=== PATIENT | female | born 1955 | race Caucasian/White ===

== ENCOUNTER 2016-08-04 11:54 | Day surgery (SDC) | payer OTHER ==
[2016-08-01 18:52] VITALS: BMI 26.5
--- NOTE | 2016-08-03 21:09 | P.GSHP ---
History of Present Illness H&P Date: 08/04/16 CHIEF COMPLAINT: Gallstones. HISTORY OF PRESENT ILLNESS: Katarina Burris is a pleasant 61 year-old female who denies any family history of gallbladder disease. She has had nausea increase vomiting, epigastric including right upper quadrant abdominal pain for several months. She had an ultrasound of the abdomen that was done within the last 4 weeks consistent with gallstones. Incidentally, she also has a lipoma of the left lower abdomen that will cause intermittent discomfort. Her main concerns include epigastric abdominal pain whereby she has to actually massage the area to get some relief. She denies any cardiac problems as well. PAST MEDICAL HISTORY: Please see list PAST SURGICAL HISTORY: Please see list MEDICATIONS: Please see list ALLERGIES: Denies. SOCIAL HISTORY: No illicit drug use or recent tobacco use FAMILY HISTORY: Pertinent for gallbladder disease REVIEW OF ORGAN SYSTEMS: GI: Denies any blood in her stools. She is up to date with her colonoscopy. She reports fatty food intolerance. She also has gastroesophageal reflux disease. CONSTITUTIONAL: No fevers or chills. HEENT: Denies any trouble with vision, hearing or nosebleeds. No difficulty swallowing. LYMPHATIC: The patient denies any lumps and bumps around the neck. ENDOCRINE: Denies any thyroid disorders. Denies any blood sugar glucose intolerance. RESPIRATORY: Denies pneumonia. Denies any troubles with breathing or dyspnea on exertion. CARDIOVASCULAR: Denies any chest pain, palpitations, or recent heart attacks. GENITOURINARY: Denies any blood in urine or increased urinary frequency. MUSCULOSKELETAL: Denies any back pain, stiffness or joint arthritis. NEUROLOGIC: Denies any numbness or tingling along the distal extremities. No seizure disorders or headaches. PSYCHIATRIC: Denies any depression or suicidal ideation. HEMATOLOGIC: Denies any abnormal bleeding or bruising. BREASTS: Denies any breast lumps, pain or nipple discharge. PHYSICAL EXAM: VITAL SIGNS: GENERAL: Well developed and in no acute distress. Pleasant. HEENT: No sclera icterus. Extraocular movements grossly intact. Moist buccal mucosa. Head is atraumatic, normocephalic. Hears conversational speech. No nasal drainage. NECK: Supple without lymphadenopathy. No JV distention. CHEST: Non-labored respirations and equal bilateral excursions. CARDIOVASCULAR: Regular rate and rhythm. Palpable 2+ radial pulses. ABDOMEN: Soft. Non-tender. Nondistended. MUSCULOSKELETAL: No clubbing, cyanosis or edema. NEUROLOGIC: No focal or lateralizing signs. PSYCH: Appropriate affect. Alert and oriented to person, place and time. SKIN: Palpable soft tissue easily mobile mass along the left lower quadrant over 4 cm STUDIES: Ultrasound of the gallbladder consistent with multiple gallstones. CBD with 1 cm within normal limits. Ultrasound of the left lower quadrant was consistent with over 4.5 cm lipoma. ASSESSMENT: 1. Right upper quadrant abdominal pain. 2. Symptomatic gallstones. 3. Gastroesophageal reflux disease. 4. Suspected diaphragmatic hiatal hernia. 5. Left lower quadrant lipoma. PLAN: 1. I have gone over the benefits and risks of a laparoscopic cholecystectomy with robotic assistance. 2. DVT prophylaxis. 3. Antibiotics prophylaxis. 4. As she also has gastroesophageal reflux disease, I have also recommended upper endoscopy for symptoms that are consistent with hiatal hernia. 5. For the lipoma of the left lower abdomen, that could be deferred at this time. Past Medical History Past Medical History: Eye Disorder, Osteoarthritis (OA) Additional Past Medical History / Comment(s): GLAUCOMA. MILD OA. GALLSTONES History of Any Multi-Drug Resistant Organisms: None Reported Past Surgical History: Section Additional Past Surgical History / Comment(s): LAPAROSCOPY Past Anesthesia/Blood Transfusion Reactions: Motion Sickness Past Psychological History: Bipolar Additional Psychological History / Comment(s): MANIC-DEPRESSIVE Smoking Status: Former smoker Past Alcohol Use History: Occasional Additional Past Alcohol Use History / Comment(s): SMOKED 2 YEARS IN HER 20'S Past Drug Use History: None Reported - Past Family History Mother Family Medical History: No Reported History Medications and Allergies Home Medications Medication Instructions Recorded Confirmed Type [place] Carbonate 300 mg PO DAILY 08/01/16 08/01/16 History Timolol 0.5% Ophth Soln [Timoptic 1 drop BOTH EYES BID 08/01/16 08/01/16 History 0.5% Ophth Soln] Venlafaxine HCl ER [Effexor Xr] 150 mg PO DAILY 08/01/16 08/01/16 History buPROPion SR [Wellbutrin Sr] 150 mg PO DAILY 08/01/16 08/01/16 History Allergies Allergy/AdvReac Type Severity Reaction Status Date / Time ampicillin Allergy Severe LOWERED Verified 08/01/16 18:56 IMMUNE SYSTEM
[~2016-08-04 11:54] MED LIST: ACETAMINOPHEN IV (For NPO) 1,000 MG in EMPTY BAG 1 BAG IVPB ONE; DEXAMETHASONE SOD PHOSPHATE 10 MG/ML 1 ML VIAL IV ONE; HEPARIN SODIUM,PORCINE 5,000 UNIT/ML 1 ML VIAL SQ ONE; HYDROmorphone 1 MG/ML 1 ML SYRINGE IVP PRN; LACTATED RINGERS 1,000 ML IV SCH; MIDAZOLAM 2 MG/2 ML VIAL IV PRN; ONDANSETRON 4 MG/2 ML VIAL IVP ONE; Pre Op ABX Message 1 EACH MISC MISCELLANE ONE; SCOPOLAMINE 1.5MG/72HR PATCH TRANSDERM ONE
[2016-08-04 12:24] VITALS: RESP 16
[2016-08-04] MEDS ORDERED: LIDOCAINE 1% 20 ML VIAL (10MG/ML) FOR IV START INTRADERMA ONE (12:27)
[2016-08-04] MEDS ORDERED: BUPIVACAIN-EPI 0.25%-1:200,000 30 ML VIAL SQ ONE ×3 (12:31→13:16)
[2016-08-04] MEDS ORDERED: CLINDAMYCIN 600 MG in DEXTROSE 5% IN WATER 50 ML IVPB STA ×2 (12:49)
--- NOTE | 2016-08-04 12:49 | P.HPADDEND ---
H&P Addendum H&P Addendum Date: 08/04/16 Will proceed with laparoscopic cholecystectomy. Additionally patient has gastroesophageal reflux disease and will proceed with upper endoscopy
[2016-08-04] MEDS ORDERED: LIDOCAINE 1% INJ 10MG/ML (20 ML MDV) ONE (12:54)
[2016-08-04] MEDS ORDERED: HYDROmorphone (PF) 1 MG/ML ONE (12:54)
[2016-08-04] MEDS ORDERED: SUCCINYLCHOLINE CHLORIDE 100 MG/5 ML SYR IV ONE (12:54)
[2016-08-04] MEDS ORDERED: fentaNYL (PF) 50 MCG/ML 2 ML AMP ONE (12:54)
[2016-08-04] MEDS ORDERED: MIDAZOLAM 2 MG/2 ML VIAL ONE (12:54)
[2016-08-04] MEDS ORDERED: GLYCOPYRROLATE 0.2 MG/ML 2 ML VIAL ONE (12:54)
[2016-08-04] MEDS ORDERED: LABETALOL 5 MG/ML VIAL MDV ONE (12:54)
[2016-08-04] MEDS ORDERED: NEOSTIGMINE 1 MG/ML 10 ML VIAL ONE (12:54)
[2016-08-04] MEDS ORDERED: ROCURONIUM BROMIDE 10 MG/ML 10 ML VIAL IV ONE (12:54)
[2016-08-04] MEDS ORDERED: PROPOFOL 10 MG/ML 20 ML VIAL IV ONE (12:54)
[2016-08-04] MEDS ORDERED: LACTATED RINGERS 1,000 ML IV ONE ×2 (13:49)
[2016-08-04] MEDS ORDERED: NALOXONE 0.4 MG/ML 1 ML VIAL IV PRN (14:05)
[2016-08-04] MEDS ORDERED: PROMETHAZINE 25 MG TAB PO PRN (14:05)
[2016-08-04] MEDS ORDERED: HYDROcodone/APAP 5-325MG 1 EACH TAB PO PRN (14:05)
[2016-08-04] MEDS ORDERED: ONDANSETRON 4 MG/2 ML VIAL IVP PRN (14:05)
--- NOTE | 2016-08-04 14:05 | P.PCN ---
Description of Procedure: Date of Procedure: 08/04/16 Preoperative Diagnosis: Symptomatic cholelithiasis, epigastric abdominal pain, gastric esophageal reflux disease Postoperative Diagnosis: Same, peritoneal adhesions lower abdomen epigastrium, greater omentum to anterior abdominal wall Procedure(s) Performed: Laparoscopic cholecystectomy, esophagogastroduodenoscopy, laparoscopic lysis of adhesions Anesthesia: GETA, local Surgeon: Katarina Acharya Estimated Blood Loss (ml): 5 Pathology: other (Gallbladder) Condition: stable Disposition: floor Operative Findings: Early gastric ulcers, gastritis along the antrum, junction 40 cm, low-grade 2 lower esophageal valve, LA grade C erosive esophagitis, moderate intra- abdominal adhesions from previous
[2016-08-04] MEDS ORDERED: KETOROLAC 30 MG/ML 1 ML VIAL IVP SCH (14:15)
[2016-08-04 14:21] VITALS: TEMP 97.6
[2016-08-04] MEDS ORDERED: ENALAPRILAT 1.25 MG/ML 1 ML VIAL IVP STA (14:23)
[2016-08-04] MEDS ORDERED: LABETALOL SYRINGE 5 MG/ML IVP STA (14:23)
[2016-08-04] MEDS ORDERED: ENALAPRILAT 1.25 MG/ML 1 ML VIAL IVP ONE (14:26)
[2016-08-04] MEDS ORDERED: LABETALOL 5 MG/ML VIAL MDV IVP ONE (14:26)
[2016-08-04] MEDS ORDERED: HYDROcodone/APAP 5-325MG 1 EACH TAB PO ONE (15:23)
[2016-08-04] MEDS ORDERED: ONDANSETRON 4 MG/2 ML VIAL IVP ONE (15:30)
[2016-08-04 16:17] VITALS: BP 139/75; PULSE 78
--- NOTE | 2016-08-05 21:46 | P.OP ---
Date of Procedure: 08/04/16 Description of Procedure: SURGEON: YOSSI BALDWIN MD BRIDGE PAINTER: None. PREOPERATIVE DIAGNOSES: 1. Chronic Cholecystitis. 2. Symptomatic cholelithiasis. 3. Bipolar disease, manic depressive. 4. Osteoarthritis. 5. Glaucoma. 6. Gastroesophageal reflux disease. POSTOPERATIVE DIAGNOSES: 1. Chronic Cholecystitis. 2. Symptomatic cholelithiasis. 3. Bipolar disease, manic depressive. 4. Osteoarthritis. 5. Glaucoma. 6. Diffuse peritoneal adhesions midline and lower abdomen. 7. Gastroesophageal reflux disease. OPERATION: 1. Laparoscopic lysis of adhesions over 30 minutes, greater omentum to abdominal wall. 2. Laparoscopic cholecystectomy. 3. Intraoperative esophagogastroduodenoscopy. ANESTHESIA: General with 30 mL 0.25% Marcaine with epinephrine. ESTIMATED BLOOD LOSS: 5 mL. SPECIMENS REMOVED: Gallbladder. COMPLICATIONS: None. INDICATIONS: The patient is a 61-year-old female who presents with symptomatic cholelithiasis. Surgical intervention with a laparoscopic cholecystectomy was described at length including injury to the biliary tree, bleeding, infection, need for further surgery. Informed consent was obtained. DESCRIPTION OF THE PROCEDURE: The patient was brought to the operating room, laid in supine position. After general induction, the abdomen was prepped and draped in a standard sterile fashion. Prior to incision, a timeout protocol was confirmed with surgical team regarding patient's name, procedure to be performed including preoperative medications for which she had received heparin 5000 units subcutaneously as well as bilateral SCDs for DVT prophylaxis. A transverse 10 mm incision was made at the left upper quadrant A 0 degree, 5-mm laparoscope was used for a 10-mm laparoscopic trocar entry was performed and entered into the peritoneal cavity. Diagnostic laparoscopy confirmed no injury to bowel , viscera or mesentery. Severe intra-abdominal adhesions affecting the midline including lower abdomen was identified. Another 5-mm port was placed along the left lateral abdominal wall under direct visualization. Extensive laparoscopic lysis of adhesions occurred for over 30 minutes to take down the greater omental adhesions to the anterior abdominal wall. No enterotomies occurred. Next, above the umbilicus and off to the right of the midline, a 5-mm port was placed. Two 5 mm trocars were placed along the right costal margin. The patient was placed in steep reverse Trendelenburg position with the right side up. The gallbladder fundus was retracted over the dome of the liver. Initial attention was brought to the infundibulum which was gently retracted in the inferior lateral approach. Using a Kittner, the cystic duct including the cystic artery was carefully skeletonized. Using a large clip seed core operator 2 clips were placed proximally, and 2 clip was placed distally along the cystic duct and then cut. Again care was taken to avoid any injury to the biliary tree as the common bile duct was clearly visualized during this portion of dissection. Next, the cystic artery was clipped twice proximally, once distally and then divided using Sonicision. Electro-Bovie cautery was used to remove the gallbladder from the hepatic fossa without decompression of the gallbladder. Hemostasis was checked and found to be adequate. The gallbladder was removed from the abdominal cavity using an Endo Catch bag and passed off for further pathological analysis. All instruments and pneumoperitoneum were removed from the abdominal cavity. The fascial defect for the 11-mm port site was oversewn using Julien- Mirza and 0-Vicryl. The rest of incisions were reapproximated using 4-0 Monocryl in an interrupted subcuticular fashion. A total of 30 mL of 0.25% Marcaine with epinephrine was infiltrated to all wounds for postop analgesia. Dermabond was applied to the skin. An intraoperative EGD was performed. Please see separate operative note. At the end of the procedure, needle, sponge, and instrument count was verified correct by mechanical technician. The patient had tolerated the procedure well and was taken to postanesthesia care unit in stable condition. Intraoperative films were discussed and reviewed with the patient's family who were pleased with the level of care. FINDINGS: 1. Symptomatic cholelithiasis. 2. Severe intra-abdominal adhesions.
--- NOTE | 2016-08-05 21:52 | P.OP ---
Date of Procedure: 08/05/16 Description of Procedure: PREOPERATIVE DIAGNOSIS: Gastroesophageal reflux disease. Epigastric abdominal pain. POSTOPERATIVE DIAGNOSIS: Chronic gastritis without stigmata of prior bleed Diaphragmatic hiatal hernia. Gastroesophageal reflux disease. Epigastric abdominal pain. Superficial gastric ulcers along the antrum. Erosive esophagitis. OPERATION: Intraoperative esophagogastroduodenoscopy SURGEON: Katarina Acharya MD ANESTHESIA: MAC. INDICATIONS: The patient is a 61-year-old female who presents with a history of gastroesophageal reflux disease and epigastric abdominal pain. Benefits and risks of the procedure were described. Informed consent was obtained. DESCRIPTION: The patient was brought into the endoscopy suite and laid in the left lateral decubitus position. An Olympus gastroscope was passed along the posterior oropharynx down to the distal esophagus where the squamocolumnar junction was encountered at 40 cm from the incisors. The stomach was entered and bile was aspirated from the stomach. Additional findings are listed below. The first through third portion of the duodenum was examined and unremarkable. Retroflexion of the scope confirmed Hill grade II lower esophageal valve. The squamocolumnar junction demostrated LA grade C erosive esophagitis. The stomach was desufflated. The patient tolerated the procedure well. FINDINGS: Squamocolumnar junction 40 cm from the incisors. Hill grade II lower esophageal valve. LA grade C erosive esophagitis. No active duodenitis. Superficial gastric ulcers. Gastritis along the antrum RECOMMENDATIONS: Upper endoscopy as needed.
== END 2016-08-04 16:45 | disposition home or self-care (01) ==
LOC: OR 11:54
PROVIDERS: ATTEND Surgery Plastic and Reconstructive Surgery
DX: K80.10 Calculus of gallbladder with chronic cholecystitis without obstruction (principal); K44.9 Diaphragmatic hernia without obstruction or gangrene; K22.10 Ulcer of esophagus without bleeding; K25.9 Gastric ulcer, unspecified as acute or chronic, without hemorrhage or perforation; K21.9 Gastro-esophageal reflux disease without esophagitis; D17.1 Benign lipomatous neoplasm of skin and subcutaneous tissue of trunk; K66.0 Peritoneal adhesions (postprocedural) (postinfection); Z87.891 Personal history of nicotine dependence; M19.90 Unspecified osteoarthritis, unspecified site; F31.9 Bipolar disorder, unspecified; H40.9 Unspecified glaucoma; Z79.899 Other long term (current) drug therapy; Z88.0 Allergy status to penicillin
CPT/HCPCS: 88304; 47562; 43235; J2250; J1644; J1100; J2710; J2405; J2001; J3010; J1170; J0131; J0330; J2704

== ENCOUNTER 2021-03-18 09:11 | Day surgery (SDC) | payer OTHER, MEDICARE ==
[2021-03-16 10:43] VITALS: BMI 30.2
[~2021-03-18 09:11] MED LIST changes: -ACETAMINOPHEN IV (For NPO) 1,000 MG in EMPTY BAG 1 BAG IVPB ONE; -DEXAMETHASONE SOD PHOSPHATE 10 MG/ML 1 ML VIAL IV ONE; -HEPARIN SODIUM,PORCINE 5,000 UNIT/ML 1 ML VIAL SQ ONE; -HYDROmorphone 1 MG/ML 1 ML SYRINGE IVP PRN; -MIDAZOLAM 2 MG/2 ML VIAL IV PRN; -ONDANSETRON 4 MG/2 ML VIAL IVP ONE; -Pre Op ABX Message 1 EACH MISC MISCELLANE ONE; -SCOPOLAMINE 1.5MG/72HR PATCH TRANSDERM ONE
[2021-03-18 09:33] VITALS: TEMP 97.5
[2021-03-18] MEDS ORDERED: PROPOFOL 10 MG/ML 20 ML VIAL IV ONE (10:15)
--- NOTE | 2021-03-18 10:38 | P.PCN ---
Date of Procedure: 03/18/21 Procedure(s) Performed: BRIEF HISTORY: Patient is a 66-year-old pleasant white female scheduled for an elective colonoscopy as a part of screening for colorectal neoplasia. PROCEDURE PERFORMED: Colonoscopy and polypectomy. PREOPERATIVE DIAGNOSIS: Screening for colorectal neoplasia. . IV sedation per Anesthesia. PROCEDURE: After informed consent was obtained, the patient, was brought into the endoscopy unit. IV sedation was administered by Anesthesia under continuous monitoring. Digital rectal examination was normal. Initially the Olympus CF-160 flexible video colonoscope was then inserted in the rectum, gradually advanced into the cecum without any difficulty. Careful examination was performed as the scope was gradually being withdrawn. Ileocecal valve and the appendiceal orifice were visualized and appeared normal. Prep was excellent. Mucosa of the cecum, appeared normal. In the ascending colon there was a 5-6 minute a polyp that was removed by snare polypectomy. There was a 1 cm nonbleeding arteriovenous malformation in the ascending colon that was cauterized. Rest of the ascending colon, transverse colon, descending colon, sigmoid colon, and rectum appeared normal. In the proximal rectum there was a 1 cm polyp removed by snare polypectomy. Retroflexion was performed in the rectum and no lesions were seen. The patient tolerated the procedure well. 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 She was advised to follow with the biopsy results. If the biopsy reveals adenoma he can have a repeat colonoscopy in 3 years.
[2021-03-18 11:00] VITALS: BP 148/82; PULSE 83; RESP 16
== END 2021-03-18 11:32 | disposition home or self-care (01) ==
LOC: ORWHC2ENDO 09:11
PROVIDERS: ATTEND Internal Medicine Gastroenterology
DX: Z12.11 Encounter for screening for malignant neoplasm of colon (principal); Q27.33 Arteriovenous malformation of digestive system vessel; D12.2 Benign neoplasm of ascending colon; D12.8 Benign neoplasm of rectum; H40.9 Unspecified glaucoma; M19.90 Unspecified osteoarthritis, unspecified site; I10 Essential (primary) hypertension; Z88.0 Allergy status to penicillin
CPT/HCPCS: 88305; 45385; J2704

== ENCOUNTER → 2021-06-28 | Outpatient (CLI) | payer MEDICARE, OTHER | END | disposition home or self-care (01) | LOC: LABWHC1 16:10 | PROVIDERS: ATTEND Family Medicine | DX: Z20.822 Contact with and (suspected) exposure to COVID-19 (principal); Z73.89 Other problems related to life management difficulty | CPT/HCPCS: 87502; C9803 ==

== ENCOUNTER → 2022-06-28 | Outpatient (CLI) | payer MEDICARE, OTHER ==
--- NOTE | 2022-06-28 11:43 | XR ---
EXAMINATION TYPE: XR cervical spine limited DATE OF EXAM: 06/28/2022 COMPARISON: NONE HISTORY: Radiculopathy TECHNIQUE: 3 views are submitted. FINDINGS: The odontoid is intact. There are no compression deformities. The prevertebral soft tissue structur es are within normal limits. Loss of the normal cervical lordosis with minimal anterior listhesis C5 . Moderate degenerative disc disease C4-C5 and moderate to severe changes C5-C6 and C6-C7 with global compensation director ior spondylosis calcifications in the soft tissue the neck likely related to atherosclerotic change o f the carotid arteries. IMPRESSION: 1. Moderate to severe degenerative disc disease lower cervical spine consider follow-up MRI..
== END | disposition home or self-care (01) ==
LOC: RADXRMAIN 11:07
PROVIDERS: ATTEND Family Medicine
DX: M50.11 Cervical disc disorder with radiculopathy, high cervical region (principal)
CPT/HCPCS: 72040

== ENCOUNTER 2024-06-10 10:13 | Inpatient (IN) | payer MEDICARE ==
--- NOTE | 2024-06-10 10:44 | ED ---
General Adult HPI - General Chief complaint: Dizziness Stated complaint: Vertigo Time Seen by Provider: 06/10/24 10:20 Source: patient, EMS Mode of arrival: EMS Limitations: no limitations - History of Present Illness Initial comments: Dictation was produced using [employer] dictation software. please excuse any grammatical, word or spelling errors. Chief Complaint: 69-year-old female presents with vertigo History of Present Illness: Patient 69-year-old female presents to the emergency department for constant vertigo. For the last several weeks she has been having symptoms of vertigo. She was seen by her primary care doctor prescribed Antivert discharge. States that she has been having episodes of vertigo almost daily. Daughter at the bedside states that her symptoms wax and wane. Today she woke up was having constant vertigo regardless of movement. Patient denies any headache. Denies any extremity weakness or sensory deficit. The ROS documented in this emergency department record has been reviewed and confirmed by me. Those systems with pertinent positive or negative responses have been documented in the HPI. All other systems are other negative and/or noncontributory. - Related Data Home Medications Medication Instructions Recorded Confirmed Escitalopram [Lexapro] 20 mg PO DAILY 06/10/24 06/10/24 Meclizine [Antivert] 25 mg PO TID 06/10/24 06/10/24 Pantoprazole [Protonix] 40 mg PO DAILY 06/10/24 06/10/24 QUEtiapine FUMARATE [SEROquel] 300 mg PO HS 06/10/24 06/10/24 amLODIPine [Norvasc] 10 mg PO DAILY 06/10/24 06/10/24 buPROPion XL [Wellbutrin XL] 300 mg PO DAILY 06/10/24 06/10/24 Allergies Allergy/AdvReac Type Severity Reaction Status Date / Time ampicillin Allergy Severe LOWERED Verified 06/10/24 11:48 IMMUNE SYSTEM Review of Systems ROS Statement: Those systems with pertinent positive or pertinent negative responses have been documented in the HPI. ROS Other: All systems not noted in ROS Statement are negative. Past Medical History Past Medical History: Eye Disorder, Hypertension, Osteoarthritis (OA) Additional Past Medical History / Comment(s): GLAUCOMA. MILD OA. History of Any Multi-Drug Resistant Organisms: None Reported Past Surgical History: Section Additional Past Surgical History / Comment(s): LAPAROSCOPY, Past Anesthesia/Blood Transfusion Reactions: Motion Sickness Past Psychological History: Bipolar Smoking Status: Former smoker - Past Family History Mother Family Medical History: No Reported History General Exam - General Exam Comments Initial Comments: PHYSICAL EXAM: General Impression: Alert and oriented x3, acute distress secondary to vertigo HEENT: Normocephalic atraumatic, extra-ocular movements intact, pupils equal and reactive to light bilaterally, mucous membranes moist. Cardiovascular: Heart regular rate and rhythm Chest: Able to complete full sentences, no retractions, no tachypnea Abdomen: abdomen soft, non-tender, non-distended, no organomegaly Musculoskeletal: Pulses present and equal in all extremities, no peripheral edema Motor: no focal deficits noted Neurological: CN II-XII grossly intact, no focal motor or sensory deficits noted , persistent nystagmus Skin: Intact with no visualized rashes Psych: Normal affect and mood Limitations: no limitations Course Vital Signs 06/10/24 06/10/24 10:18 12:02 Temperature 98.0 F Pulse Rate 89 90 Respiratory 18 18 Rate Blood Pressure 184/81 189/86 O2 Sat by Pulse 99 96 Oximetry EKG Findings - EKG Comments: EKG Findings:: My EKG interpretation: Ventricular rate 93, sinus rhythm,. 169, QRS 99, QTc 422. No ND prolongation, no QTC prolongation, no ST or T-wave changes noted. Overall, this EKG is unremarkable Medical Decision Making - Medical Decision Making Was pt. sent in by a medical professional or institution (, PA, PHOTOTYPESETTER OPERATOR, urgent care, hospital, or jail...) When possible be specific @ -No Did you speak to anyone other than the patient for history (EMS, parent, family, police, friend...)? What history was obtained from this source @ -No Did you review nursing and triage notes (agree or disagree)? Why? @ -I reviewed and agree with nursing and triage notes Were old charts reviewed (outside hosp., previous admission, EMS record, old EKG, old radiological studies, urgent care reports/EKG's, jail records)? Report findings @ -No old charts were reviewed Differential Diagnosis (chest pain, altered mental status, abdominal pain women, abdominal pain men, vaginal bleeding, musculoskeletal, weakness, fever, dyspnea, syncope, headache, dizziness, GI bleed, back pain, seizure, CVA, palpatations, mental health)? @ -Differential Dizziness: Benign paroxysmal positional Vertigo, Meniere's disease, otitis media, acoustic neuroma, vertebrobasilar insufficiency, cerebellar stroke, encephalitis, hypovolemic, arrhythmia, coronary artery syndrome, anemia, this is not meant to be an all-inclusive list EKG interpreted by me (3pts min.). @ -See above X-rays interpreted by me (1pt min.). @ -Chest x-ray shows no acute processes CT interpreted by me (1pt min.). @ -CT brain and CT angiography head and neck shows no acute processes U/S interpreted by me (1pt. min.). @ -None done What testing was considered but not performed or refused? (CT, X-rays, U/S, labs)? Why? @ -None What meds were considered but not given or refused? Why? @ -None Was smoking cessation discussed for >3mins.? @ -No Were there social determinants of health that impacted care today? How? (Homelessness, low income, unemployed, alcoholism, drug addiction, transpo rtation, low edu. Level, literacy, decrease access to med. care, shelter, rehab)? @ -No Was there de-escalation of care discussed even if they declined (Discuss DNR or withdrawal of care, Hospice)? DNR status @ -No What co-morbidities impacted this encounter? (DM, HTN, Smoking, COPD, CAD, Cancer, CVA, ARF, Chemo, Hep., AIDS, mental health diagnosis, sleep apnea, morbid obesity)? @ -None Was patient admitted / discharged? Hospital course, mention meds given and route, prescriptions, significant lab abnormalities, going to OR and other pertinent info. @ -69-year-old female presents to the emergency department for persistent vertigo. Clinical presentation concerning for central cause of vertigo. Vital signs stable. Patient distress due to significant vertigo. Laboratory evaluation within acceptable limits. Patient given symptomatic medications along with fluids and benzodiazepines. Still persistent symptoms. Patient case discussed with neurologist who is willing to consult on patient. Patient case discussed with hospitalist for admission. Did you discuss the management of the patient with other professionals (professionals i.e. , PA, PHOTOTYPESETTER OPERATOR, lab, RT, psych nurse, public health social worker, crown presser, teacher, professional security officer, ed case manager)? Give summary @ -No Was critical care preformed (if so, how long)? @ -No Undiagnosed new problem with uncertain prognosis? @ -No Drug Therapy requiring intensive monitoring for toxicity (Heparin, Nitro, Insulin, Cardizem)? @ -No Were any procedures done? @ -No Diagnosis/symptom? Acute, or Chronic, or Acute on Chronic? Uncomplicated (without systemic symptoms) or Complicated (systemic symptoms)? @ -Severe vertigo Side effects of treatment? @ -No Exacerbation, Progression, or Severe Exacerbation? @ -No Poses a threat to life or bodily function? How? (Chest pain, [place], NE, pneumonia, PE, COPD, DKA, ARF, appy, cholecystitis, CVA, Diverticulitis, Homicidal, Suicidal, threat to staff... and all critical care pts) @ -yes - Lab Data Result diagrams: 06/10/24 10:45 06/10/24 10:45 Lab Results 06/10/24 06/10/24 06/10/24 Range/Units 10:45 10:45 10:45 WBC 10.3 (3.8-10.6) k/uL RBC 3.40 L (3.80-5.40) m/uL Hgb 9.1 L (11.4-16.0) gm/dL Hct 28.2 L (34.0-46.0) % MCV 82.8 (80.0-100.0) fL MCH 26.6 (25.0-35.0) pg MCHC 32.2 (31.0-37.0) g/dL RDW 14.0 (11.5-15.5) % Plt Count 335 (150-450) k/uL MPV 8.1 Neutrophils % 83 % Lymphocytes % 10 % Monocytes % 4 % Eosinophils % 1 % Basophils % 0 % Neutrophils # 8.5 H (1.3-7.7) k/uL Lymphocytes # 1.0 (1.0-4.8) k/uL Monocytes # 0.4 (0-1.0) k/uL Eosinophils # 0.1 (0-0.7) k/uL Basophils # 0.0 (0-0.2) k/uL Hypochromasia Slight PT 10.4 (10.0-12.5) sec INR 0.9 (<1.2) APTT 20.4 L (22.0-30.0) sec Sodium 137 (137-145) mmol/L Potassium 4.4 (3.5-5.1) mmol/L Chloride 109 H (98-107) mmol/L Carbon Dioxide 17 L (22-30) mmol/L Anion Gap 11 mmol/L BUN 18 H (7-17) mg/dL Creatinine 0.99 (0.52-1.04) mg/dL Est GFR (CKD-EPI)AfAm 68 (>60 ml/min/1.73 sqM) Est GFR (CKD-EPI)NonAf 59 (>60 ml/min/1.73 sqM) Glucose 215 H (74-99) mg/dL Calcium 9.5 (8.4-10.2) mg/dL Total Bilirubin 0.2 (0.2-1.3) mg/dL AST 20 (14-36) U/L ALT 18 (4-34) U/L Alkaline Phosphatase 116 (38-126) U/L Creatine Kinase 76 (30-135) U/L Troponin I (0.000-0.034) ng/mL Total Protein 7.2 (6.3-8.2) g/dL Albumin 4.4 (3.5-5.0) g/dL 06/10/24 Range/Units 10:45 WBC (3.8-10.6) k/uL RBC (3.80-5.40) m/uL Hgb (11.4-16.0) gm/dL Hct (34.0-46.0) % MCV (80.0-100.0) fL MCH (25.0-35.0) pg MCHC (31.0-37.0) g/dL RDW (11.5-15.5) % Plt Count (150-450) k/uL MPV Neutrophils % % Lymphocytes % % Monocytes % % Eosinophils % % Basophils % % Neutrophils # (1.3-7.7) k/uL Lymphocytes # (1.0-4.8) k/uL Monocytes # (0-1.0) k/uL Eosinophils # (0-0.7) k/uL Basophils # (0-0.2) k/uL Hypochromasia PT (10.0-12.5) sec INR (<1.2) APTT (22.0-30.0) sec Sodium (137-145) mmol/L Potassium (3.5-5.1) mmol/L Chloride (98-107) mmol/L Carbon Dioxide (22-30) mmol/L Anion Gap mmol/L BUN (7-17) mg/dL Creatinine (0.52-1.04) mg/dL Est GFR (CKD-EPI)AfAm (>60 ml/min/1.73 sqM) Est GFR (CKD-EPI)NonAf (>60 ml/min/1.73 sqM) Glucose (74-99) mg/dL Calcium (8.4-10.2) mg/dL Total Bilirubin (0.2-1.3) mg/dL AST (14-36) U/L ALT (4-34) U/L Alkaline Phosphatase (38-126) U/L Creatine Kinase (30-135) U/L Troponin I <0.012 (0.000-0.034) ng/mL Total Protein (6.3-8.2) g/dL Albumin (3.5-5.0) g/dL Disposition Clinical Impression: Vertigo Disposition: ADMITTED IP TO THIS [facility] Condition: Fair Referrals: None,Stated [REFERRING] - 1-2 days Decision Time: 12:38
[2024-06-10 11:12] LABS: Basophils % (A) 0 %; Eosinophils # (A) 0.1 k/uL (0-0.7); Eosinophils % (A) 1 %; HCT 28.2 % (34.0-46.0); HGB 9.1 gm/dL (11.4-16.0); Hypochromasia Slight; Lymphocytes % (A) 10 %; MCH 26.6 pg (25.0-35.0); MCHC 32.2 g/dL (31.0-37.0); MCV 82.8 fL (80.0-100.0); Mean Platelet Volume 8.1; Monocytes # (A) 0.4 k/uL (0-1.0); Monocytes % (A) 4 %; Neutrophils # (A) 8.5 k/uL (1.3-7.7); Neutrophils % (A) 83 %; Platelet Count 335 k/uL (150-450); WBC 10.3 k/uL (3.8-10.6)
[2024-06-10 11:27] LABS: ALT 18 U/L (4-34); AST 20 U/L (14-36); African American GFR (CKD) 68 (>60 ml/min/1.73 sqM); Albumin 4.4 g/dL (3.5-5.0); Alkaline Phosphatase 116 U/L (38-126); Anion Gap 11 mmol/L; Blood Urea Nitrogen 18 mg/dL (7-17); Calcium 9.5 mg/dL (8.4-10.2); Carbon Dioxide 17 mmol/L (22-30); Chloride 109 mmol/L (98-107); Creatine Kinase 76 U/L (30-135); Glucose 215 mg/dL (74-99); Non-African American GFR(CKD) 59 (>60 ml/min/1.73 sqM); Potassium 4.4 mmol/L (3.5-5.1); Sodium 137 mmol/L (137-145); Total Bilirubin 0.2 mg/dL (0.2-1.3); Total Protein 7.2 g/dL (6.3-8.2)
[2024-06-10 11:36] LABS: INR 0.9 (<1.2); Prothrombin Time 10.4 sec (10.0-12.5)
--- NOTE | 2024-06-10 11:44 | XR ---
EXAMINATION TYPE: XR chest 2V DATE OF EXAM: 06/10/2024 11:09 AM COMPARISON: None CLINICAL INDICATION: Female, 69 years old with history of altered mental status; [facility] TECHNIQUE: XR chest 2V Frontal and lateral views of the chest. FINDINGS: Lungs/Pleura: There is no evidence of pleural effusion, focal consolidation, or pneumothorax. Pulmonary vascularity: Unremarkable. Heart/mediastinum: Cardiomediastinal silhouette is unremarkable. Musculoskeletal: No acute osseous pathology. Other findings: None IMPRESSION: No acute cardiopulmonary disease/process. [facility], , 06/10/2024 11:42 AM
[2024-06-10 11:47] LABS: Partial Thromboplastin Time 20.4 sec (22.0-30.0)
--- NOTE | 2024-06-10 12:12 | CT ---
EXAMINATION TYPE: CT brain wo con DATE OF EXAM: 06/10/2024 12:00 PM COMPARISON: None. CLINICAL INDICATION: Female, 69 years old with history of Neuro deficit, acute, stroke suspected, terri tigo TECHNIQUE: CT of the brain is performed utilizing 3 mm thick sections through the posterior fossa and 3 mm thick sections through the remaining calvarium. Study is performed within 24 hours of arrival to the hospital. Contrast used: mL of , (none if empty) CT DLP: 1075 mGycm, Automated exposure control for dose reduction was used. FINDINGS: No abnormal hyperdensity is present to suggest an acute intracranial hemorrhage. No mass lesion is evident. No acute infarcts are evident. Ventricles and sulci are appropriate for the patient age. Paranasal sinuses within the [id number] are clear. There is fluid within the right mastoid air lilibeth ls. Correlate for mastoiditis. IMPRESSION: 1. No acute intracranial process. Follow up MRI can be performed as clinically indicated. 2. Clinical correlation recommended for right mastoiditis [facility], , 06/10/2024 12:10 PM
--- NOTE | 2024-06-10 12:24 | CT ---
EXAMINATION TYPE: CT angio head neck DATE OF EXAM: 06/10/2024 12:00 PM COMPARISON: None. CLINICAL INDICATION: Female, 69 years old with history of Neuro deficit, acute, stroke suspected, terri tigo TECHNIQUE: CTA scan is performed with axial images are obtained, coronal and sagittal reformatted heber ges are reviewed. 3-D reconstructed images are created on an independent workstation and reviewed. S ource images are reviewed. NASCET criteria was used in interpretation of this exam? Contrast used:65 mL of Isovue 370 with IV Contrast, (none if empty) Oral contrast used: (none if empty) CT DLP: 449.6 mGycm, Automated exposure control for dose reduction was used. FINDINGS: Carotid/Vascular Structures: There is a common origin of the right subclavian and left common carotid artery from the innominate Common carotid arteries bifurcate into internal and external carotid arteries without significant luis fernando w limiting stenosis. Calcification is at the left carotid bifurcation with less than 40% narrowing. Vertebral arteries are codominant. Internal carotid arteries and vertebral arteries are patent to the skull base. Cervical of [place]: Vertebral basilar system appears normal. Posterior cerebral vasculature is unrema rkable. Internal carotid arteries bifurcate normally into A1 and M1 segments. A2 segments are normal. The anterior communicating artery is patent. The right posterior communicating artery is absent. The left posterior communicating artery is absent. IMPRESSION: 1. No flow-limiting stenosis bilateral carotid bifurcations. 2. Normal [place] [facility], , 06/10/2024 12:21 PM
[2024-06-10] MEDS ORDERED: NALOXONE 0.4 MG/ML 1 ML VIAL IV PRN (12:32)
[2024-06-10] MEDS: METOCLOPRAMIDE 5 MG/ML 2 ML VIAL IVP STA (12:42)
[2024-06-10] MEDS: MECLIZINE 12.5 MG TAB PO STA (12:42)
[2024-06-10] MEDS: SODIUM CHLORIDE 0.9% 1,000 ML IV SCH ×2 (12:43→18:26)
[2024-06-10] MEDS ORDERED: MECLIZINE 25 MG TAB PO SCH (17:30)
[2024-06-10] MEDS: MECLIZINE 25 MG TAB PO SCH (17:35)
[2024-06-10] MEDS: ONDANSETRON 4 MG/2 ML VIAL IVP PRN (17:35)
--- NOTE | 2024-06-10 17:41 | P.CNNES ---
History of Present Illness Consult date: 06/10/24 Requesting physician: Isaac Mcmillan Reason for Consult: vertigo History of Present Illness: This is a 69-year-old woman who presents emergency department because of vertigo. She is accompanied with her who provides some of the history. Seems the patient has been having dizziness since Year's Alondra and it is worse with movement and she feels she is dizzy. She has been having nausea and vomiting episode. She has to walk with a cane. She was evaluated by her primary care physician and she was prescribed meclizine according to the and meclizine was 25 mg 1 tablet 3 times a day and it was just container and was prescribed for 5 days so she ran out this Sunday but the obtain more medication [id number] but seems that today she had worsening of her dizziness with nausea vomiting and she could not keep anything down and she feels worse. She could not tell me if she had any focal deficit. She is able to swallow but she just vomited out and per the she is not having any difficulty swallowing. No recent sickness in the past. She feels her right ear is muffled. No speech difficulty. No history of stroke in the past. No history of atrial fibrillation. Denies any tobacco use. She socially drinks alcohol. Uses marijuana. Denies any illicit drug use. Some of the workup during this hospital visit consisted of: I reviewed the lab work CT of the head is reported as no acute intracranial process. Clinical correlation recommended for right mastoiditis. I personally reviewed the CT and there is no acute or subacute process. CT angiography of the head and neck is reported as no flow-limiting stenosis bilateral carotid bifurcation. Normal [place]. Review of Systems As per HPI. Past Medical History Past Medical History: Eye Disorder, Hypertension, Osteoarthritis (OA) Additional Past Medical History / Comment(s): GLAUCOMA. MILD OA. History of Any Multi-Drug Resistant Organisms: None Reported Past Surgical History: Section Additional Past Surgical History / Comment(s): LAPAROSCOPY, Past Anesthesia/Blood Transfusion Reactions: Motion Sickness Past Psychological History: Bipolar Smoking Status: Former smoker - Past Family History Mother Family Medical History: No Reported History Medications and Allergies Home Medications Medication Instructions Recorded Confirmed Type Escitalopram [Lexapro] 20 mg PO DAILY 06/10/24 06/10/24 History Meclizine [Antivert] 25 mg PO TID 06/10/24 06/10/24 History Pantoprazole [Protonix] 40 mg PO DAILY 06/10/24 06/10/24 History QUEtiapine FUMARATE [SEROquel] 300 mg PO HS 06/10/24 06/10/24 History amLODIPine [Norvasc] 10 mg PO DAILY 06/10/24 06/10/24 History buPROPion XL [Wellbutrin XL] 300 mg PO DAILY 06/10/24 06/10/24 History Allergies Allergy/AdvReac Type Severity Reaction Status Date / Time ampicillin Allergy Severe LOWERED Verified 06/10/24 11:48 IMMUNE SYSTEM Physical Examination - Vital Signs Vital Signs: Vital Signs Temp Pulse Resp BP Pulse Ox 06/10/24 17:04 94 16 180/81 96 06/10/24 12:02 90 18 189/86 96 06/10/24 10:18 98.0 F 89 18 184/81 99 Intake and Output 06/10/24 06/10/24 06/10/24 06:59 14:59 22:59 Other: Weight 81.647 kg General: Lying in bed and is not in acute distress. Neuro: Very limited because of her overall condition. I had a hard time having the patient fully cooperate because of her dizziness Patient is awake oriented to self place and time. Is following some simple commands. No aphasia from limited examination The pupils are round when I attempted to assess the pupillary reflex the patient kept on closing her eyes extraocular movements intact no nystagmus. No facial weakness. No dysarthria Motor: Not assessed gait because of her severe dizziness I had a hard time assessing patient individual muscle strength because of her cooperation but she briefly lifted upper and lower extremity above gravity appears symmetrical Cerebellar: Brief cooperation did not noticed any dysmetria or ataxia. Results - Laboratory Findings CBC and BMP: 06/10/24 10:45 06/10/24 10:45 Abnormal Lab Findings: Abnormal Labs 06/10/24 06/10/24 06/10/24 10:45 10:45 10:45 RBC 3.40 L Hgb 9.1 L Hct 28.2 L Neutrophils # 8.5 H APTT 20.4 L Chloride 109 H Carbon Dioxide 17 L BUN 18 H Glucose 215 H Assessment and Plan Assessment: This is a 69-year-old woman who having dizziness with nausea vomiting since 05/19/2024 and was prescribed meclizine by her PCP but seems that she got worse today. Acute vertigo: Fully due to peripheral. Has right mastoiditis on CT images. Rule out central but unlikely. History of bipolar Plan: Started the patient on meclizine 25 mg 1 tablet 4 times daily scheduled The ED the patient was given Valium a total of 5 mg once. She received meclizine 50 mg once in the ED. Will start the patient on Zofran 4 mg every 6 hours as needed for the nausea vomiting I ordered MRI of the brain with and without to rule out any central process Recommend ENT evaluation for her mastoiditis and ongoing vertigo and if cannot be seen as an inpatient can consider outpatient Will defer the rest of the medical management to primary other specialist Plans discussed with patient and her who is at bedside as well as her nurse. Thank you for the consultation. Time with Patient: Greater than 30
[2024-06-10] MEDS: ESCITALOPRAM 20 MG TAB PO SCH (19:04)
[2024-06-10] MEDS: amLODIPine 10 MG TAB PO SCH (19:04)
[2024-06-10] MEDS: PANTOPRAZOLE 40 MG TABLET PO SCH (19:04)
[2024-06-10] MEDS: buPROPion XL 300 MG TAB.ER.24H PO SCH (19:04)
[2024-06-10] MEDS: QUEtiapine 200 MG TAB PO SCH (21:08)
[2024-06-11] MEDS: METOPROLOL TARTRATE 12.5 MG TAB PO STA (08:33)
[2024-06-11 10:31] LABS: BUN/Creat Ratio 12.89 Ratio (12.00-20.00); Blood Urea Nitrogen 11.6 mg/dL (9.0-27.0); Calcium 9.4 mg/dL (8.7-10.3); Carbon Dioxide 20.6 mmol/L (21.6-31.8); Chloride 108 mmol/L (96-109); Glucose 127 mg/dL (70-110); Potassium 3.9 mmol/L (3.5-5.5); Sodium 138 mmol/L (135-145)
--- NOTE | 2024-06-11 15:19 | P.HPIM ---
History of Present Illness H&P Date: 06/11/24 Chief Complaint: Vertigo Patient is a 69-year-old female with a history of hypertension and osteoarthritis presented to the emergency department with constant vertigo for the past several weeks. Patient states that she has never had vertigo before this event. She recently visited her primary care physician and was prescribed with meclizine which she did report some improvement however the vertigo got worse over the past week which made the patient to come to the ED for evaluation. She currently reports a room spinning sensation that would last several minutes and would go away. However vertigo that started this morning has been constant and did not go away. Patient does report some nausea and an episode of vomiting yesterday. Patient also reports some fullness in her right ear. Patient denies fever, chills, chest pain, shortness of breath, belly pain, dysuria, tingling or numbness in her arms or legs, hematochezia or melena. ED documentation reviewed. In the ED patient was treated with Valium 2.5 mg IV x 2, meclizine 50 mg x 1, Reglan 10 mg IV x 1, normal saline at 130 cc an hour, metoprolol tartrate 12.5 mg x 1 Vitals on admission temperature 99.3, pulse rate 113, respiratory rate 16, blood pressure 143/75, O2 sat 98% on room air EKG independently interpreted as sinus rhythm with ventricular rate of 93 bpm, QTc intervals 422 ms, possible left atrial enlargement, possible inferior myocardial infarction, probably old CXR shows no acute cardiopulmonary disease/process CT of brain shows no acute intracranial process. Follow-up MRI can be performed as clinically indicated. Clinical correlation recommended for right mastoiditis . CT angio of head and neck shows no flow-limiting stenosis of bilateral carotid bifurcations. And normal the [place]. Labs on admission show WBC 10.3, hemoglobin 9.1, hematocrit 28.2, platelet 335, PT 10.4, INR 0.9, PTT 20.4, sodium 137, potassium 4.4, chloride 109, carbon dioxide 17, BUN 18, creatinine 0.99, glucose 215, troponin less than 0.012 Review of systems: Pertinent positives and negatives as discussed in HPI, a complete review of systems was performed and all other systems are negative. PMH:a history of hypertension and osteoarthritis PSH: section and laparoscopy FMH: No pertinent family history Allergies: Ampicillin Social history: Tobacco: Former smoker Alcohol: No alcohol use Recreational drugs: No drug use Travel: No travel history Sick contacts: No sick contacts Physical examination: Vital signs reviewed General: nontoxic, no distress, appears at stated age Derm: warm, dry, intact Head: atraumatic, normocephalic, symmetric Eyes: EOMI, anicteric sclera Mouth: no lip lesion, mucus membranes moist Cardiovascular: S1 S2 reg, no murmur Lungs: CTA bilateral, no rhonchi, no rales, no accessory muscle use Abdominal: soft, non-tender to palpation Extremities: No cyanosis, clubbing, or pedal edema. Neuro: Alert, Gross neurological examination did not reveal any focal deficits. Slightly reduced ability to perform [id number] testing both arms. Bilateral upper and lower extremity muscle strength and sensation intact. Cranial nerves II to XII grossly intact. Psych: well appearing, appropriate affect Assessment/Plan: Patient is a 69-year-old female with a history of hypertension and osteoarthritis presented to the emergency department with constant vertigo for the past several weeks. Patient will be admitted to internal medicine service. Active: #. Vertigo, likely peripheral Continue meclizine 25 mg 4 times daily Neurology has been consulted CT of brain shows no acute intracranial process CT angio of head and neck shows no stenosis the [place] Currently pending results from MRI with and without contrast to rule out central causes of vertigo Nausea control with Zofran as needed #. Right mastoiditis CT of brain shows findings for right mastoiditis Consider ENT consult or follow-up outpatient upon discharge #. Normocytic anemia Hemoglobin 9.1, MCV 82.8 Patient denies hematochezia or melena Monitor morning CBC #. Hyperglycemia Glucose 127 Accu-Cheks ACHS Morning BMP Chronic: #. Hypertension #. GERD #. Depression Continue amlodipine 10 mg daily Continue Protonix 40 mg daily Continue Lexapro 20 mg daily F: No restrictions E: Replete as needed N: Clear liquid diet A: EMS DVT prophylaxis: Lovenox 40 mg subcu dailyin the setting of low hemoglobin hold for now The patient is admitted with an anticipated less than 2 midnight stay for evaluation of vertigo CODE STATUS: Full code Discussed with: Patient Anticipated discharge place: Home Past Medical History Past Medical History: Eye Disorder, Hypertension, Osteoarthritis (OA) Additional Past Medical History / Comment(s): GLAUCOMA. MILD OA. History of Any Multi-Drug Resistant Organisms: None Reported Past Surgical History: Section Additional Past Surgical History / Comment(s): LAPAROSCOPY, Past Anesthesia/Blood Transfusion Reactions: Motion Sickness Past Psychological History: Bipolar Smoking Status: Former smoker - Past Family History Mother Family Medical History: No Reported History Medications and Allergies Home Medications Medication Instructions Recorded Confirmed Type Escitalopram [Lexapro] 20 mg PO DAILY 06/10/24 06/10/24 History Meclizine [Antivert] 25 mg PO TID 06/10/24 06/10/24 History Pantoprazole [Protonix] 40 mg PO DAILY 06/10/24 06/10/24 History QUEtiapine FUMARATE [SEROquel] 300 mg PO HS 06/10/24 06/10/24 History amLODIPine [Norvasc] 10 mg PO DAILY 06/10/24 06/10/24 History buPROPion XL [Wellbutrin XL] 300 mg PO DAILY 06/10/24 06/10/24 History Allergies Allergy/AdvReac Type Severity Reaction Status Date / Time ampicillin Allergy Severe LOWERED Verified 06/10/24 11:48 IMMUNE SYSTEM Physical Exam Vitals: Vital Signs Temp Pulse Pulse Resp BP BP BP 06/11/24 07:00 99.3 F 113 H 16 143/75 06/11/24 00:08 97.8 F 114 H 18 182/85 06/10/24 23:28 116 H 18 152/76 06/10/24 21:06 99 16 176/76 06/10/24 19:00 100 18 184/84 06/10/24 17:04 94 16 180/81 06/10/24 12:02 90 18 189/86 06/10/24 10:18 98.0 F 89 18 184/81 Pulse Ox 06/11/24 07:00 98 06/11/24 00:08 96 06/10/24 23:28 96 06/10/24 21:06 98 06/10/24 19:00 97 06/10/24 17:04 96 06/10/24 12:02 96 06/10/24 10:18 99 Intake and Output 06/10/24 06/11/24 06/11/24 22:59 06:59 14:59 Output Total 730 Balance -730 Output: Urine 730 Straight 730 Other: Voiding Method Diaper External Catheter Weight 81.647 kg Results CBC & Chem 7: 06/10/24 10:45 06/11/24 06:00 Labs: Abnormal Lab Results - Last 24 Hours (Table) 06/10/24 06/10/24 06/10/24 Range/Units 10:45 10:45 10:45 RBC 3.40 L (3.80-5.40) m/uL Hgb 9.1 L (11.4-16.0) gm/dL Hct 28.2 L (34.0-46.0) % Neutrophils # 8.5 H (1.3-7.7) k/uL APTT 20.4 L (22.0-30.0) sec Chloride 109 H (98-107) mmol/L Carbon Dioxide 17 L (22-30) mmol/L BUN 18 H (7-17) mg/dL Glucose 215 H (74-99) mg/dL Thrombosis Risk Factor Assmnt - Choose All That Apply Each Factor Represents 1 point: Obesity (BMI >25) Each Risk Factor Represents 2 Points: Age 61-74 years Thrombosis Risk Factor Assessment Total Risk Factor Score: 3 Thrombosis Risk Factor Assessment Level: Moderate Risk
--- NOTE | 2024-06-11 15:33 | P.PN ---
Subjective Progress Note Date: 06/11/24 I am following up with the patient and she feels mildly improved today compared to yesterday. She states she is tolerating popsicle. She feels her dizziness is worse with movement. Objective - Vital Signs Vital signs: Vital Signs Temp 98.5 F 06/11/24 14:54 Pulse 87 06/11/24 14:54 Resp 16 06/11/24 14:54 BP 159/83 06/11/24 14:54 Pulse Ox 98 06/11/24 14:54 FiO2 Intake & Output 06/10/24 06/11/24 06/11/24 18:59 06:59 18:59 Intake Total 236 Output Total 730 900 400 Balance -730 -900 -164 Weight 81.647 kg Intake: Oral 236 Output: Urine 730 900 400 Straight 730 Other: Voiding Method Diaper External Catheter - Exam General: Lying in bed and is not in acute distress. Neuro: Limited because of her overall condition. Patient is awake oriented to self place and time. Is following some simple commands. No aphasia from limited examination Extraocular movements intact no nystagmus. No facial weakness. No dysarthria Motor: Not assessed gait because of her severe dizziness I had a hard time assessing patient individual muscle strength because of her cooperation but she briefly lifted upper and lower extremity above gravity appears symmetrical Cerebellar: Patient has ataxia with finger to nose on the right with finger to nose. Some of the workup during this hospital visit consisted of: I reviewed the lab work CT of the head is reported as no acute intracranial process. Clinical correlation recommended for right mastoiditis. I personally reviewed the CT and there is no acute or subacute process. CT angiography of the head and neck is reported as no flow-limiting stenosis bilateral carotid bifurcation. Normal [place]. - Labs CBC & Chem 7: 06/10/24 10:45 06/11/24 06:00 Labs: Abnormal Lab Results - Last 24 Hours (Table) 06/11/24 Range/Units 06:00 Carbon Dioxide 20.6 L (21.6-31.8) mmol/L Glucose 127 H (70-110) mg/dL Assessment and Plan Assessment: This is a 69-year-old woman who having dizziness with nausea vomiting since 05/19/2024 and was prescribed meclizine by her PCP but seems that she got worse today. Acute vertigo: Rule out central cause since on examination has ataxia with finger to nose. Also rule out peripheral and has right mastoiditis on CT images. History of bipolar Plan: Continue meclizine 25 mg 1 tablet 4 times daily scheduled Continue Zofran 4 mg every 6 hours as needed for the nausea vomiting Pending MRI of the brain with and without to rule out any central process Recommend ENT evaluation for her mastoiditis and ongoing vertigo and if cannot be seen as an inpatient can consider outpatient Will defer the rest of the medical management to primary other specialist Plan is discussed with patient and her who is at bedside as well as her nurse. Time with Patient: Less than 30
[2024-06-11 17:28] LABS: Glucose,Whole Blood 124 mg/dL (70-110)
[2024-06-11 20:21] LABS: Glucose,Whole Blood 115 mg/dL (70-110)
[2024-06-12 06:23] LABS: Glucose,Whole Blood 129 mg/dL (70-110)
[2024-06-12] MEDS: LORazepam 2 MG/ML INJ IV STA (09:31)
[2024-06-12 10:47] LABS: Blood Urea Nitrogen 13.5 mg/dL (9.0-27.0); Calcium 9.4 mg/dL (8.7-10.3); Carbon Dioxide 21.2 mmol/L (21.6-31.8); Chloride 107 mmol/L (96-109); Glucose 115 mg/dL (70-110); Sodium 139 mmol/L (135-145)
[2024-06-12 10:52] LABS: Basophils # (A) 0.05 X 10*3/uL (0.00-0.10); Basophils % (A) 0.6 %; Eosinophils # (A) 0.06 X 10*3/uL (0.04-0.35); Eosinophils % (A) 0.7 %; HGB 8.9 g/dL (12.0-15.0); Lymphocytes # (A) 1.81 X 10*3/uL (0.90-5.00); Lymphocytes % (A) 22.3 %; MCH 25.8 pg (27.0-32.0); MCHC 30.7 g/dL (32.0-37.0); MCV 84.1 FL (80.0-97.0); Mean Platelet Volume 10.1 FL (9.5-12.2); Monocytes # (A) 0.65 X 10*3/uL (0.20-1.00); NRBC Per 100 WBC 0 X 10*3/uL (0.00-0.01); Neutrophils # (A) 5.52 X 10*3/uL (1.80-7.70); Neutrophils % (A) 68.2 %; Platelet Count 352 X 10*3/uL (140-440); RBC 3.45 X 10*6/uL (4.10-5.20); RDW 13.7 % (11.5-14.5); WBC 8.11 X 10*3/uL (4.50-10.00)
--- NOTE | 2024-06-12 11:04 | MR ---
EXAMINATION TYPE: MR brain wo/w con DATE OF EXAM: 06/12/2024 10:38 AM COMPARISON: 06/10/2024. CLINICAL INDICATION: Female, 69 years old with history of vertigo; TECHNIQUE: Multi planar, multi sequence imaging was performed through the brain including: T1, T2, In version recovery, susceptibility weighted imaging and gradient echo imaging and Diffusion weighted im aging. The patient was then given intravenous contrast and multi planar, T1 fat-saturation images wer e obtained. IV Contrast: 8 mL Gadobutrol FINDINGS: Restricted diffusion within the right cerebellar hemisphere. No evidence for hemorrhage. Mild cerebral atrophy with proportional dilation of ventricular system. Intracranial arterial flow v oids are maintained. Midline structures show no abnormality. Scattered foci of high T2 signal intensi ty are seen within the periventricular white matter. The susceptibility weighted images do not reveal any evidence for micro-hemorrhage. After administration of gadolinium, no abnormal enhancement is se en. The bone marrow signal is within normal limits. Paranasal sinuses and mastoid air cells: High T2 signal within the right mastoid air cells. Visualized orbits: Orbital contents are intact. IMPRESSION: 1. Acute versus subacute CVA involving the right cerebellar hemisphere. 2. Nonspecific white matter changes, likely related to small vessel ischemic disease. [facility], , 06/12/2024 11:02 AM
--- NOTE | 2024-06-12 11:48 | P.PN ---
Subjective Progress Note Date: 06/12/24 I am following up with the patient and patient states that she is feeling somewhat better today compared to yesterday. Denies any new neurological issues. MRI of the brain shows acute ischemic stroke over the right cerebellar. Patient was not on any antiplatelet prior to this. Objective - Vital Signs Vital signs: Vital Signs Temp 98.1 F 06/12/24 07:20 Pulse 100 06/12/24 07:20 Resp 17 06/12/24 07:20 BP 169/83 06/12/24 07:20 Pulse Ox 96 06/12/24 07:20 FiO2 Intake & Output 06/11/24 06/12/24 06/12/24 18:59 06:59 18:59 Intake Total 236 Output Total 400 200 Balance -164 -200 Intake: Oral 236 Output: Urine 400 200 Other: Voiding Method Diaper External Catheter # Bowel Movements 0 - Exam General: Lying in bed and is not in acute distress. Neuro: Limited because of her overall condition. Patient is awake oriented to self place and time. Is following some simple commands. No aphasia from limited examination Extraocular movements intact no nystagmus. No facial weakness. No dysarthria Motor: Not assessed gait because of her severe dizziness I had a hard time assessing patient individual muscle strength because of her cooperation but she briefly lifted upper and lower extremity above gravity appears symmetrical Cerebellar: Patient has mild ataxia with finger to nose on the right which is better today compared to yesterday. But has ataxia with heel to ch on the right. Normal on the left. Some of the workup during this hospital visit consisted of: I reviewed the lab work CT of the head is reported as no acute intracranial process. Clinical correlation recommended for right mastoiditis. I personally reviewed the CT and there is no acute or subacute process. CT angiography of the head and neck is reported as no flow-limiting stenosis bilateral carotid bifurcation. Normal [place]. MRI of the brain is reported as acute versus subacute CVA involving the right cerebellar hemisphere. - Labs CBC & Chem 7: 06/12/24 06:32 06/12/24 06:32 Labs: Abnormal Lab Results - Last 24 Hours (Table) 06/11/24 06/11/24 06/11/24 Range/Units 10:45 17:26 20:20 RBC (4.10-5.20) X 10*6/uL Hgb (12.0-15.0) g/dL Hct (37.2-46.3) % MCH (27.0-32.0) pg MCHC (32.0-37.0) g/dL Carbon Dioxide (21.6-31.8) mmol/L Glucose (70-110) mg/dL POC Glucose (mg/dL) 124 H 115 H (70-110) mg/dL Hemoglobin A1c 6.3 H (<=6.0) % 06/12/24 06/12/24 06/12/24 Range/Units 06:21 06:32 06:32 RBC 3.45 L (4.10-5.20) X 10*6/uL Hgb 8.9 L (12.0-15.0) g/dL Hct 29.0 L (37.2-46.3) % MCH 25.8 L (27.0-32.0) pg MCHC 30.7 L (32.0-37.0) g/dL Carbon Dioxide 21.2 L (21.6-31.8) mmol/L Glucose 115 H (70-110) mg/dL POC Glucose (mg/dL) 129 H (70-110) mg/dL Hemoglobin A1c (<=6.0) % Assessment and Plan Assessment: This is a 69-year-old woman who having dizziness with nausea vomiting since 05/27/2024 and was prescribed meclizine by her PCP but seems that she got worse on 06/10/2024 Acute subacute ischemic stroke over the right cerebellar patient has acute vertigo with unsteady gait since 05/27/2025. On examination patient has ataxia with [id number] as well as heel to ch-- today the [id number] is slightly better compared to yesterday. Unknown exact etiology of her stroke. Her risk factors are hypertension, age and sex. No IV thrombolytic since outside window and risk outweigh benefits. Hypertension History of bipolar Marijuana use Plan: I ordered 2D echo, lipid panel, TSH primary team started the patient on aspirin 81 mg and I start the patient on Plavix 75 mg. Prior to this patient was not on antiantiplatelet. Recommend dual antiplatelet for 21 days and after 21 days stop Plavix but continue aspirin indefinitely Started on Lipitor 40 mg nightly for secondary prophylaxis. If 2D echo is unremarkable then recommend a transesophageal echocardiogram and 30-day event monitor. Continue meclizine 25 mg 1 tablet 4 times daily scheduled Continue Zofran 4 mg every 6 hours as needed for the nausea vomiting Continue neurochecks I consulted PT and OT Will defer the rest of the medical management to primary other specialist DVT prophylaxis I started the patient on subcu heparin 5000 units every 12 hours On discharge recommend the patient to follow-up with a neurologist as an outpatient within 2 weeks Plan is discussed with patient and her who is at bedside as well as her nurse. Time with Patient: Less than 30
[2024-06-12] MEDS: ASPIRIN 81 MG PO SCH (12:00)
[2024-06-12] MEDS: HEPARIN SODIUM,PORCINE 5,000 UNIT/ML 1 ML VIAL SQ SCH (12:00)
[2024-06-12 12:06] LABS: Glucose,Whole Blood 117 mg/dL (70-110)
[2024-06-12] MEDS ORDERED: fentaNYL (PF) 50 MCG/ML 5 ML AMP IVP PRN (12:21)
[2024-06-12] MEDS ORDERED: MIDAZOLAM 2 MG/2 ML VIAL IV PRN (12:21)
[2024-06-12] MEDS ORDERED: BENZOCAINE SPRAY 1 CAN TOPICAL PRN (12:21)
--- NOTE | 2024-06-12 13:01 | P.CRDCN ---
History of Present Illness History of present illness: HISTORY OF PRESENT ILLNESS: This is a 69-year-old female with a past medical history significant for depression and hypertension. Patient does not follow with a manager mental health. We have been asked to see the patient in consultation for ESTEFANÍA and event monitor. Patient examined at the bedside. Patient reports she has was having dizziness for 4 days before coming to the hospital. She states that she felt like she was spinning and off balance. She also reported having double vision yesterday which has improved. She states she continues to have dizziness and is having a hard time sitting up to her symptoms. She denied having any palpitations or fluttering. She reports some SOB with ambulation but nothing worse than her baseline. She denies chest pain or pressure. She reports a history of hypertension. She denies a history of diabetes or hyperlipidemia. She is a non-smoker. She denies alcohol use. Denies any drug use including marijuana. DIAGNOSTICS: - EKG reveals sinus mechanism with Q waves inferiorly. - Chest xray negative for acute process - CT of the brain: Negative for acute process - MRI of the brain: Acute/subacute CVA involving right cerebellar hemisphere. Nonspecific white matter changes likely related to small vessel ischemic disease - Laboratory data: WBC 8.11. Hemoglobin 8.9. Platelet count 352. Sodium 139. Potassium 4.0. BUN 13.5. Creatinine 0.9. Troponin negative x 1. - Current home cardiac medications include amlodipine 10 mg daily. - No previous echocardiogram, stress test, or cardiac catheterization available in EMR for review REVIEW OF SYSTEMS: At the time of my exam: CONSTITUTIONAL: Denies fever or chills. HEENT: Denies blurred vision, vision changes, or eye pain. Denies hemoptysis CARDIOVASCULAR: Denies chest pain. Denies orthopnea. Denies PND. Denies palpitations RESPIRATORY: Denies shortness of breath. GASTROINTESTINAL: Denies abdominal pain. Denies nausea or vomiting. HEMATOLOGIC: Denies bleeding disorders. GENITOURINARY: Denies any blood in urine. SKIN: Denies pruitis. Denies rash. PHYSICAL EXAM: VITAL SIGNS: Reviewed. GENERAL: Well-developed in no acute distress. HEENT: Head is normocephalic. Pupils are equal, round. Sclerae anicteric. Mucous membranes of the mouth are moist. Neck supple. No JVD or thyromegaly LUNGS: Respirations even and unlabored. Lungs essentially clear to auscultation bilaterally. HEART: Regular rate and rhythm. S1 and S2 heard. ABDOMEN: Soft. Nondistended. Nontender. EXTREMITIES: Normal range of motion. No clubbing or cyanosis. Peripheral pulses intact. No lower extremity edema NEUROLOGIC: Awake and alert. Oriented x 3. ASSESSMENT: Acute/subacute CVA of right cerebellar hemisphere Hypertension History of depression Obesity: BMI 32.9 PLAN: Obtain 2D echo to assess cardiac structure and function Patient has been started on aspirin, Plavix, and atorvastatin Initiate telemetry monitoring to rule out any arrhythmias N.p.o. at midnight Patient to undergo ESTEFANÍA tomorrow with Dr. Harrington 30-day event monitor at discharge Further recommendations pending patient course Nurse practitioner note has been reviewed by physician. Signing provider agrees with the documented findings, assessment, and plan of care documented by ACCOUNTS OFFICER as a scribe. Past Medical History Past Medical History: Eye Disorder, Hypertension, Osteoarthritis (OA) Additional Past Medical History / Comment(s): GLAUCOMA. MILD OA. History of Any Multi-Drug Resistant Organisms: None Reported Past Surgical History: Section Additional Past Surgical History / Comment(s): LAPAROSCOPY, Past Anesthesia/Blood Transfusion Reactions: Motion Sickness Past Psychological History: Bipolar Smoking Status: Former smoker - Past Family History Mother Family Medical History: No Reported History Medications and Allergies Home Medications Medication Instructions Recorded Confirmed Type Escitalopram [Lexapro] 20 mg PO DAILY 06/10/24 06/10/24 History Meclizine [Antivert] 25 mg PO TID 06/10/24 06/10/24 History Pantoprazole [Protonix] 40 mg PO DAILY 06/10/24 06/10/24 History QUEtiapine FUMARATE [SEROquel] 300 mg PO HS 06/10/24 06/10/24 History amLODIPine [Norvasc] 10 mg PO DAILY 06/10/24 06/10/24 History buPROPion XL [Wellbutrin XL] 300 mg PO DAILY 06/10/24 06/10/24 History Allergies Allergy/AdvReac Type Severity Reaction Status Date / Time ampicillin Allergy Severe LOWERED Verified 06/10/24 11:48 IMMUNE SYSTEM Physical Exam Vitals: Vital Signs Temp Pulse Resp BP Pulse Ox 06/12/24 07:20 98.1 F 100 17 169/83 96 06/12/24 00:57 97.8 F 102 H 17 169/83 95 06/11/24 20:17 97.8 F 86 18 180/82 98 06/11/24 14:54 98.5 F 87 16 159/83 98 Intake and Output 06/11/24 06/12/24 06/12/24 22:59 06:59 14:59 Output Total 200 Balance -200 Output: Urine 200 Other: Voiding Method Diaper Diaper External Catheter External Catheter # Bowel Movements 0 Results 06/12/24 06:32 06/12/24 06:32 CBC 06/12/24 Range/Units 06:32 WBC 8.11 (4.50-10.00) X 10*3/uL RBC 3.45 L (4.10-5.20) X 10*6/uL Hgb 8.9 L (12.0-15.0) g/dL Hct 29.0 L (37.2-46.3) % Plt Count 352 (140-440) X 10*3/uL Comprehensive Metabolic Panel 06/12/24 Range/Units 06:32 Sodium 139 (135-145) mmol/L Potassium 4.0 (3.5-5.5) mmol/L Chloride 107 (96-109) mmol/L Carbon Dioxide 21.2 L (21.6-31.8) mmol/L BUN 13.5 (9.0-27.0) mg/dL Creatinine 0.9 (0.6-1.5) mg/dL Glucose 115 H (70-110) mg/dL Calcium 9.4 (8.7-10.3) mg/dL Current Medications Generic Name Dose Route Start Last Admin Trade Name Wildq PRN Reason Stop Dose Admin Amlodipine Besylate 10 mg 06/10/24 18:00 06/12/24 09:34 Amlodipine 10 Mg Tab PO 10 mg DAILY [facility] Administration Aspirin 81 mg 06/12/24 11:30 Aspirin 81 Mg PO DAILY [facility] Atorvastatin Calcium 40 mg 06/12/24 21:00 Atorvastatin 40 Mg Tab PO HS [facility] Bupropion HCl 300 mg 06/10/24 18:00 06/12/24 09:31 Bupropion Xl 300 Mg Tab.Er.24h PO 300 mg DAILY [facility] Administration Clopidogrel Bisulfate 75 mg 06/13/24 09:00 Clopidogrel 75 Mg Tab PO DAILY [facility] Escitalopram Oxalate 20 mg 06/10/24 18:00 06/12/24 09:32 Escitalopram 20 Mg Tab PO 20 mg DAILY [facility] Administration Heparin Sodium (Porcine) 5,000 unit 06/12/24 12:00 Heparin Sodium,Porcine 5,000 Unit/Ml 1 Ml Vial SQ Q12HR KEN Meclizine HCl 25 mg 06/10/24 18:00 06/12/24 09:32 Meclizine 25 Mg Tab PO 06/15/24 17:59 25 mg QID [facility] Administration Naloxone HCl 0.2 mg 06/10/24 12:32 Naloxone 0.4 Mg/Ml 1 Ml Vial IV Q2M PRN Opioid Reversal Ondansetron HCl 4 mg 06/10/24 17:24 06/10/24 17:35 Ondansetron 4 Mg/2 Ml Vial IVP 4 mg Q6HR PRN Administration Nausea And Vomiting Pantoprazole Sodium 40 mg 06/10/24 18:00 06/12/24 09:32 Pantoprazole 40 Mg Tablet PO 40 mg DAILY@0730 KEN Administration Quetiapine Fumarate 300 mg 06/10/24 21:00 06/11/24 20:10 Quetiapine 200 Mg Tab PO 300 mg HS [facility]EN Administration Intake and Output 06/11/24 06/12/24 06/12/24 22:59 06:59 14:59 Output Total 200 Balance -200 Output: Urine 200 Other: Voiding Method Diaper Diaper External Catheter External Catheter # Bowel Movements 0 06/12/24 06:32 06/12/24 06:32
--- NOTE | 2024-06-12 15:51 | P.PN ---
Subjective Progress Note Date: 06/12/24 Per Medical H&P, "Patient is a 69-year-old female with a history of hypertension and osteoarthritis presented to the emergency department with constant vertigo for the past several weeks. Patient states that she has never had vertigo before this event. She recently visited her primary care physician and was prescribed with meclizine which she did report some improvement however the vertigo got worse over the past week which made the patient to come to the ED for evaluation. She currently reports a room spinning sensation that would last several minutes and would go away. However vertigo that started this morning has been constant and did not go away. Patient does report some nausea and an episode of vomiting yesterday. Patient also reports some fullness in her right ear. Patient denies fever, chills, chest pain, shortness of breath, belly pain, dysuria, tingling or numbness in her arms or legs, hematochezia or melena. ED documentation reviewed. In the ED patient was treated with Valium 2.5 mg IV x 2, meclizine 50 mg x 1, Reglan 10 mg IV x 1, normal saline at 130 cc an hour, metoprolol tartrate 12.5 mg x 1 Vitals on admission temperature 99.3, pulse rate 113, respiratory rate 16, blood pressure 143/75, O2 sat 98% on room air EKG independently interpreted as sinus rhythm with ventricular rate of 93 bpm, QTc intervals 422 ms, possible left atrial enlargement, possible inferior myocardial infarction, probably old CXR shows no acute cardiopulmonary disease/process CT of brain shows no acute intracranial process. Follow-up MRI can be performed as clinically indicated. Clinical correlation recommended for right mastoiditis . CT angio of head and neck shows no flow-limiting stenosis of bilateral carotid bifurcations. And normal [place]. Labs on admission show WBC 10.3, hemoglobin 9.1, hematocrit 28.2, platelet 335, PT 10.4, INR 0.9, PTT 20.4, sodium 137, potassium 4.4, chloride 109, carbon dioxide 17, BUN 18, creatinine 0.99, glucose 215, troponin less than 0.012" Progress note for 06/12/2024: Patient was seen at bedside today. Reports the vertigo is getting better. However, she still reports right ear fullness. Patient underwent an MRI of brain this morning which showed acute versus subacute CVA involving the right cerebellar hemisphere. Nonspecific white matter changes, likely related to small vessel ischemic disease. Patient denies other complaints at this time. Denies fever, chills, chest pain, shortness of breath, nausea/vomiting, belly pain, dysuria. Review of Systems Constitutional: Denies chills, Denies fever Eyes: denies blurred vision, double vision or pain Ears, nose, mouth and throat: Denies headache, Denies sore throat Cardiovascular: Denies chest pain, Denies shortness of breath Respiratory: Denies cough Gastrointestinal: Denies abdominal pain, Denies diarrhea, Denies nausea, Denies vomiting Musculoskeletal: Denies myalgias Integumentary: Denies pruritus, Denies rash Neurological: Denies numbness, Denies weakness Psychiatric: Denies anxiety, Denies depression Endocrine: Denies fatigue, Denies weight change GENERAL: This is a 69-year-old in no apparent distress at the time of examination. Pleasant and cooperative. HEENT: Head is atraumatic, normocephalic. Pupils are equal, round, and reactive to light. Sclerae anicteric. Conjunctivae are clear. Mucus membranes of the mouth are moist. Neck is supple. RESPIRATORY: Clear to auscultation. No wheezes, rales, or rhonchi. No use of accessory muscles. Patient maintaining oxygen saturation greater than 92%. No chest wall tenderness is noted on palpation or with deep breathing. CARDIOVASCULAR: Regular rate and rhythm. S1 and S2 noted. No systolic or diastolic murmur auscultated. No JVD noted. No S3 or S4 noted. GASTROINTESTINAL: No distention noted. Abdomen soft and round. Normal active bowel sounds auscultated x 4 quadrants. No pain or tenderness noted upon palpation. INTEGUMENTARY: No cyanosis. No jaundice. No rashes noted. No cellulitis noted. EXTREMITIES: 2+ peripheral pulses. No evidence of peripheral edema. No calf tenderness noted. NEUROLOGIC: Cranial nerves II-XII intact. Reduced ability to perform [id number] testing both arms. Bilateral upper and lower extremity muscle strength and sensation intact. Cranial nerves II to XII grossly intact. PSYCHIATRIC: Awake, alert, and oriented X 3. Appropriate affect. Intact judgem ent and insight. Assessment/Plan: Patient is a 69-year-old female with a history of hypertension and osteoarthritis presented to the emergency department with constant vertigo for the past several weeks. Patient will be admitted to internal medicine service. Active: #. Acute to subacute ischemic stroke over the right cerebellar hemisphere #. Vertigo MRI showed acute versus subacute CVA involving the right cerebellar hemisphere. Nonspecific white matter changes, likely related to small vessel ischemic disease. Initiate aspirin 81 mg daily and clopidogrel 75 mg daily for the next 21 days. After 21 days stop Plavix but continue aspirin indefinitely. Initiate Lipitor 40 mg nightly Obtain lipid panel Order transthoracic echo Consult cardiology per neurology recommendation for transesophageal echocardiogram and 30-day event monitor Continue meclizine 25 mg 4 times daily Continue Zofran as needed for nausea and vomiting Continue quality assurance monitor chassis Fall precautions #. Right mastoiditis CT of brain on 06/10/2024 shows findings for right mastoiditis Likely due to allergic reasons, no indication to start on antibiotics for now Consider ENT consult or follow-up outpatient upon discharge #. Normocytic anemia Hemoglobin 8.9, MCV 84.1 Patient denies hematochezia or melena Monitor morning CBC Chronic: #. Hypertension #. GERD #. Depression Continue amlodipine 10 mg daily Continue Protonix 40 mg daily Continue Lexapro 20 mg daily F: No restrictions E: Replete as needed N: Clear liquid diet A: EMS DVT prophylaxis: Heparin 5000 units SQ every 12 hours The patient is admitted with an anticipated less than 2 midnight stay for evaluation of vertigo CODE STATUS: Full code Discussed with: Patient Anticipated discharge place: Home Objective - Vital Signs Vital signs: Vital Signs Temp 98.1 F 06/12/24 07:20 Pulse 100 06/12/24 07:20 Resp 17 06/12/24 07:20 BP 169/83 06/12/24 07:20 Pulse Ox 96 06/12/24 07:20 FiO2 Intake & Output 06/11/24 06/12/24 06/12/24 18:59 06:59 18:59 Intake Total 236 10 Output Total 400 200 Balance -164 -200 10 Intake: IV 10 Invasive Line 2 10 Oral 236 Output: Urine 400 200 Other: Voiding Method Diaper External Catheter # Bowel Movements 0 - Labs CBC & Chem 7: 06/12/24 06:32 06/12/24 06:32 Labs: Abnormal Lab Results - Last 24 Hours (Table) 06/11/24 06/11/24 06/11/24 Range/Units 10:45 17:26 20:20 RBC (4.10-5.20) X 10*6/uL Hgb (12.0-15.0) g/dL Hct (37.2-46.3) % MCH (27.0-32.0) pg MCHC (32.0-37.0) g/dL Carbon Dioxide (21.6-31.8) mmol/L Glucose (70-110) mg/dL POC Glucose (mg/dL) 124 H 115 H (70-110) mg/dL Hemoglobin A1c 6.3 H (<=6.0) % 06/12/24 06/12/24 06/12/24 Range/Units 06:21 06:32 06:32 RBC 3.45 L (4.10-5.20) X 10*6/uL Hgb 8.9 L (12.0-15.0) g/dL Hct 29.0 L (37.2-46.3) % MCH 25.8 L (27.0-32.0) pg MCHC 30.7 L (32.0-37.0) g/dL Carbon Dioxide 21.2 L (21.6-31.8) mmol/L Glucose 115 H (70-110) mg/dL POC Glucose (mg/dL) 129 H (70-110) mg/dL Hemoglobin A1c (<=6.0) % 06/12/24 Range/Units 11:57 RBC (4.10-5.20) X 10*6/uL Hgb (12.0-15.0) g/dL Hct (37.2-46.3) % MCH (27.0-32.0) pg MCHC (32.0-37.0) g/dL Carbon Dioxide (21.6-31.8) mmol/L Glucose (70-110) mg/dL POC Glucose (mg/dL) 117 H (70-110) mg/dL Hemoglobin A1c (<=6.0) %
[2024-06-12 16:50] LABS: Glucose,Whole Blood 106 mg/dL (70-110)
[2024-06-12 20:31] LABS: Glucose,Whole Blood 137 mg/dL (70-110)
[2024-06-12] MEDS: ATORVASTATIN 40 MG TAB PO SCH (20:37)
[2024-06-13 06:19] LABS: Glucose,Whole Blood 147 mg/dL (70-110)
[2024-06-13 07:23] LABS: Basophils % (A) 1 %; Eosinophils # (A) 0.1 k/uL (0-0.7); Eosinophils % (A) 1 %; HCT 29.9 % (34.0-46.0); HGB 9.5 gm/dL (11.4-16.0); Hypochromasia Moderate; Lymphocytes # (A) 1.7 k/uL (1.0-4.8); Lymphocytes % (A) 21 %; MCH 26.8 pg (25.0-35.0); MCHC 31.8 g/dL (31.0-37.0); Mean Platelet Volume 7.6; Monocytes # (A) 0.4 k/uL (0-1.0); Monocytes % (A) 6 %; Neutrophils # (A) 5.3 k/uL (1.3-7.7); Neutrophils % (A) 68 %; Platelet Count 359 k/uL (150-450); RBC 3.56 m/uL (3.80-5.40); RDW 14.2 % (11.5-15.5); WBC 7.8 k/uL (3.8-10.6)
[2024-06-13 07:34] LABS: African American GFR (CKD) 72 (>60 ml/min/1.73 sqM); Anion Gap 10 mmol/L; Blood Urea Nitrogen 16 mg/dL (7-17); Calcium 9.9 mg/dL (8.4-10.2); Carbon Dioxide 18 mmol/L (22-30); Chloride 109 mmol/L (98-107); Glucose 130 mg/dL (74-99); Non-African American GFR(CKD) 63 (>60 ml/min/1.73 sqM); Potassium 3.9 mmol/L (3.5-5.1); Sodium 137 mmol/L (137-145)
[2024-06-13] MEDS: CLOPIDOGREL 75 MG TAB PO SCH (07:59)
[2024-06-13] MEDS: LOSARTAN 50 MG TAB PO SCH (10:13)
[2024-06-13] MEDS: SODIUM CHLORIDE 0.9% 500 ML 500 ML IV ONE (11:07)
--- NOTE | 2024-06-13 11:14 | P.PN ---
Subjective Progress Note Date: 06/13/24 This is a 69-year-old female with a past medical history significant for depression and hypertension. 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 We have been asked to see the patient in consultation for ESTEFANÍA and event monitor. Patient examined at the bedside. Patient reports she has was having dizziness for 4 days before coming to the hospital. She states that she felt like she was spinning and off balance. She also reported having double vision yesterday which has improved. She states she continues to have dizziness and is having a hard time sitting up to her symptoms. She denied having any palpitations or fluttering. She reports some SOB with ambulation but nothing worse than her baseline. She denies chest pain or pressure. She reports a history of hypertension. She denies a history of diabetes or hyperlipidemia. She is a non-smoker. She denies alcohol use. Denies any drug use including marijuana. DIAGNOSTICS: - EKG reveals sinus mechanism with Q waves inferiorly. - Chest xray negative for acute process - CT of the brain: Negative for acute process - MRI of the brain: Acute/subacute CVA involving right cerebellar hemisphere. Nonspecific white matter changes likely related to small vessel ischemic disease - Laboratory data: WBC 8.11. Hemoglobin 8.9. Platelet count 352. Sodium 139. Potassium 4.0. BUN 13.5. Creatinine 0.9. Troponin negative x 1. - Current home cardiac medications include amlodipine 10 mg daily. - No previous echocardiogram, stress test, or cardiac catheterization available in EMR for review 06/13/2024 Patient is scheduled for ESTEFANÍA today with Dr. Harrington. Patient has been NPO. Blood pressure 174/86, heart rate 98, pulse ox 99% on room air. Repeat blood work reveals hemoglobin 9.5, potassium 3.9, BUN 16 creatinine 0.94. PHYSICAL EXAM: VITAL SIGNS: Reviewed. GENERAL: Well-developed in no acute distress. HEENT: Head is normocephalic. Pupils are equal, round. Sclerae anicteric. Mucous membranes of the mouth are moist. Neck supple. No JVD or thyromegaly LUNGS: Respirations even and unlabored. Lungs essentially clear to auscultation bilaterally. HEART: Regular rate and rhythm. S1 and S2 heard. ABDOMEN: Soft. Nondistended. Nontender. EXTREMITIES: Normal range of motion. No clubbing or cyanosis. Peripheral pulses intact. No lower extremity edema NEUROLOGIC: Awake and alert. Oriented x 3. ASSESSMENT: Acute/subacute CVA of right cerebellar hemisphere Hypertension History of depression Obesity: BMI 32.9 PLAN: Patient has been started on aspirin, Plavix, and atorvastatin Telemetry monitoring to rule out any arrhythmias N.p.o. Patient to undergo ESTEFANÍA today with Dr. Harrington 30-day event monitor at discharge If ESTEFANÍA is unremarkable, patient is cleared for discharge from cardiology perspective. Patient will follow-up with Dr. Harrington in 5 weeks. Nurse practitioner note has been reviewed by physician. Signing provider agrees with the documented findings, assessment, and plan of care documented by MANAGER EQUITY as a scribe. Objective - Vital Signs Vital signs: Vital Signs Temp 97.8 F 06/13/24 07:49 Pulse 105 H 06/13/24 07:49 Resp 20 06/13/24 07:49 BP 179/81 06/13/24 07:49 Pulse Ox 100 06/13/24 08:25 FiO2 Intake & Output 06/12/24 06/13/24 06/13/24 18:59 06:59 18:59 Intake Total 10 Output Total 500 Balance 10 -500 Intake: IV 10 Invasive Line 2 10 Output: Urine 500 Other: Voiding Method Diaper Diaper External Catheter External Catheter # Voids 2 # Bowel Movements 1 - Labs CBC & Chem 7: 06/13/24 05:59 06/13/24 05:59 Labs: Abnormal Lab Results - Last 24 Hours (Table) 06/12/24 06/12/24 06/12/24 Range/Units 06:32 06:32 11:57 RBC 3.45 L (4.10-5.20) X 10*6/uL Hgb 8.9 L (12.0-15.0) g/dL Hct 29.0 L (37.2-46.3) % MCH 25.8 L (27.0-32.0) pg MCHC 30.7 L (32.0-37.0) g/dL Chloride (98-107) mmol/L Carbon Dioxide 21.2 L (21.6-31.8) mmol/L Glucose 115 H (70-110) mg/dL POC Glucose (mg/dL) 117 H (70-110) mg/dL 06/12/24 06/13/24 06/13/24 Range/Units 20:29 05:59 05:59 RBC 3.56 L (4.10-5.20) X 10*6/uL Hgb 9.5 L (12.0-15.0) g/dL Hct 29.9 L (37.2-46.3) % MCH (27.0-32.0) pg MCHC (32.0-37.0) g/dL Chloride 109 H (98-107) mmol/L Carbon Dioxide 18 L (21.6-31.8) mmol/L Glucose 130 H (70-110) mg/dL POC Glucose (mg/dL) 137 H (70-110) mg/dL 06/13/24 Range/Units 06:15 RBC (4.10-5.20) X 10*6/uL Hgb (12.0-15.0) g/dL Hct (37.2-46.3) % MCH (27.0-32.0) pg MCHC (32.0-37.0) g/dL Chloride (98-107) mmol/L Carbon Dioxide (21.6-31.8) mmol/L Glucose (70-110) mg/dL POC Glucose (mg/dL) 147 H (70-110) mg/dL
--- NOTE | 2024-06-13 11:25 | P.PN ---
Subjective Progress Note Date: 06/13/24 I am following up with the patient and she states she is drastically better today compared to her initial presentation to the hospital. Denies any new neurological issues. She is pending to have transesophageal echocardiogram today. Stated that she worked with therapy today and was able to use a walker. Objective - Vital Signs Vital signs: Vital Signs Temp 97.9 F 06/13/24 10:55 Pulse 98 06/13/24 10:55 Resp 20 06/13/24 10:55 BP 174/86 06/13/24 10:55 Pulse Ox 99 06/13/24 10:55 FiO2 Intake & Output 06/12/24 06/13/24 06/13/24 18:59 06:59 18:59 Intake Total 10 Output Total 500 Balance 10 -500 Intake: IV 10 Invasive Line 2 10 Output: Urine 500 Other: Voiding Method Diaper Diaper External Catheter External Catheter # Voids 2 # Bowel Movements 1 - Exam General: Lying in bed and is not in acute distress. Neuro: Patient is awake oriented to self place and time. Is following some simple commands. No aphasia from limited examination Extraocular movements intact no nystagmus. No facial weakness. No dysarthria Motor: Strength is 5/5 throughout. Cerebellar: Patient has mild ataxia with finger to nose on the right. Also my ataxia with heel to ch on the right but appears better today. Normal on the left. Some of the workup during this hospital visit consisted of: I reviewed the lab work CT of the head is reported as no acute intracranial process. Clinical correlation recommended for right mastoiditis. I personally reviewed the CT and there is no acute or subacute process. CT angiography of the head and neck is reported as no flow-limiting stenosis bilateral carotid bifurcation. Normal [place]. MRI of the brain is reported as acute versus subacute CVA involving the right cerebellar hemisphere. - Labs CBC & Chem 7: 06/13/24 05:59 06/13/24 05:59 Labs: Abnormal Lab Results - Last 24 Hours (Table) 06/12/24 06/12/24 06/13/24 Range/Units 11:57 20:29 05:59 RBC 3.56 L (3.80-5.40) m/uL Hgb 9.5 L (11.4-16.0) gm/dL Hct 29.9 L (34.0-46.0) % Chloride (98-107) mmol/L Carbon Dioxide (22-30) mmol/L Glucose (74-99) mg/dL POC Glucose (mg/dL) 117 H 137 H (70-110) mg/dL 06/13/24 06/13/24 Range/Units 05:59 06:15 RBC (3.80-5.40) m/uL Hgb (11.4-16.0) gm/dL Hct (34.0-46.0) % Chloride 109 H (98-107) mmol/L Carbon Dioxide 18 L (22-30) mmol/L Glucose 130 H (74-99) mg/dL POC Glucose (mg/dL) 147 H (70-110) mg/dL Assessment and Plan Assessment: This is a 69-year-old woman who having dizziness with nausea vomiting since 05/27/2024 and was prescribed meclizine by her PCP but seems that she got worse on 06/10/2024 Acute subacute ischemic stroke over the right cerebellar patient has acute vertigo with unsteady gait since 05/27/2025. On examination patient has ataxia with [id number] as well as heel to ch on the right--clinically feels better. Unknown exact etiology of her stroke. Her risk factors are hypertension, age and sex. No IV thrombolytic since outside window and risk outweigh benefits. Hypertension History of bipolar Marijuana use Plan: Pending 2D echo, lipid panel, TSH. She is currently on ASA 81mg daily and Plavix 75mg daily (prior to this admission was not on antiplatelets). Recommend dual antiplatelet for 21 days and after 21 days stop Plavix but continue aspirin indefinitely Started on Li pitor 40 mg nightly for secondary prophylaxis. She is scheduled to have transesophageal echocardiogram today and recommend 30- day event monitor. Continue meclizine 25 mg 1 tablet 4 times daily scheduled Continue Zofran 4 mg every 6 hours as needed for the nausea vomiting Continue neurochecks PT and OT are consulted Will defer the rest of the medical management to primary other specialist DVT prophylaxis On subcu heparin 5000 units every 12 hours On discharge recommend the patient to follow-up with a neurologist as an outpatient within 2 weeks Plan is discussed with patient and her who is at bedside as resident from primary team. If work-up above is negative then patient is clear from my side. Dr. Cee will resume neurology service tomorrow A.M. if needed and then Dr. Stevens will resume on 06/16/2024. Time with Patient: Less than 30
[2024-06-13] MEDS: BENZOCAINE SPRAY 1 CAN TOPICAL ONE ×3 (11:54→12:19)
[2024-06-13] MEDS: MIDAZOLAM 2 MG/2 ML VIAL IVP ONE ×2 (12:40→12:42)
[2024-06-13] MEDS: fentaNYL (PF) 50 MCG/ML 2 ML AMP IVP ONE (12:40)
--- NOTE | 2024-06-13 12:54 | P.PCN ---
Date of Procedure: 06/13/24 Description of Procedure: Indication: CVA Procedure Description: After explaining the procedure to the patient, it's risk and complications, blood pressure, heart rate and O2 saturation were monitored. The throat was sprayed with Cetacaine. Patient received 3 mg intravenous Versed, 50 mcg intravenous fentanyl. The probe was introduced into the esophagus without difficulty. Images were obtained. Following that, the probe was removed. There was no immediate complication. Findings: Left atrial size is mildly dilated, left atrial appendage is normal. Left ventricular size and systolic function are normal. The aortic valve, mitral valve and tricuspid valve appears to be normal. No pericardial effusion was noted. Descending thoracic aorta appears to be normal. Contrast bubble study revealed no shunting across the interatrial septum. Doppler: Pulse wave and color Doppler were obtained, and revealed mild to moderate mitral and tricuspid regurgitation, there was no shunting across the interatrial septum. Conclusion: 1. Dilated left atrium with normal appearance of the left atrial appendage 2. Normal ventricular size and systolic function 3. Mild to moderate mitral and tricuspid regurgitation 4. No shunting across the interatrial septum 5. Normal appearance of the descending thoracic aorta Duration of sedation 15 minutes.
[2024-06-13 13:06] LABS: Glucose,Whole Blood 140 mg/dL (70-110)
[2024-06-13] MEDS: SODIUM CHLORIDE 0.9% 1,000 ML IV SCH (13:20)
--- NOTE | 2024-06-13 14:08 | P.PN ---
Subjective Progress Note Date: 06/13/24 Per Medical H&P, "Patient is a 69-year-old female with a history of hypertension and osteoarthritis presented to the emergency department with constant vertigo for the past several weeks. Patient states that she has never had vertigo before this event. She recently visited her primary care physician and was prescribed with meclizine which she did report some improvement however the vertigo got worse over the past week which made the patient to come to the ED for evaluation. She currently reports a room spinning sensation that would last several minutes and would go away. However vertigo that started this morning has been constant and did not go away. Patient does report some nausea and an episode of vomiting yesterday. Patient also reports some fullness in her right ear. Patient denies fever, chills, chest pain, shortness of breath, belly pain, dysuria, tingling or numbness in her arms or legs, hematochezia or melena. ED documentation reviewed. In the ED patient was treated with Valium 2.5 mg IV x 2, meclizine 50 mg x 1, Reglan 10 mg IV x 1, normal saline at 130 cc an hour, metoprolol tartrate 12.5 mg x 1 Vitals on admission temperature 99.3, pulse rate 113, respiratory rate 16, blood pressure 143/75, O2 sat 98% on room air EKG independently interpreted as sinus rhythm with ventricular rate of 93 bpm, QTc intervals 422 ms, possible left atrial enlargement, possible inferior myocardial infarction, probably old CXR shows no acute cardiopulmonary disease/process CT of brain shows no acute intracranial process. Follow-up MRI can be performed as clinically indicated. Clinical correlation recommended for right mastoiditis . CT angio of head and neck shows no flow-limiting stenosis of bilateral carotid bifurcations. And normal [place]. Labs on admission show WBC 10.3, hemoglobin 9.1, hematocrit 28.2, platelet 335, PT 10.4, INR 0.9, PTT 20.4, sodium 137, potassium 4.4, chloride 109, carbon dioxide 17, BUN 18, creatinine 0.99, glucose 215, troponin less than 0.012" Progress note for 06/12/2024: Patient was seen at bedside today. Reports the vertigo is getting better. However, she still reports right ear fullness. Patient underwent an MRI of brain this morning which showed acute versus subacute CVA involving the right cerebellar hemisphere. Nonspecific white matter changes, likely related to small vessel ischemic disease. Patient denies other complaints at this time. Denies fever, chills, chest pain, shortness of breath, nausea/vomiting, belly pain, dysuria. Progress note for 06/13/2024: Patient was seen at bedside today. She reports feeling better compared to yesterday. Vertigo is still there but has improved since yesterday. Patient will undergo an ESTEFANÍA with Dr. Harrington today. Patient denies other complaints at this time. Denies fever, chills, chest pain, shortness of breath, nausea/vomiting, belly pain, dysuria. Review of Systems Constitutional: Denies chills, Denies fever Eyes: denies blurred vision, double vision or pain Ears, nose, mouth and throat: Denies headache, Denies sore throat Cardiovascular: Denies chest pain, Denies shortness of breath Respiratory: Denies cough Gastrointestinal: Denies abdominal pain, Denies diarrhea, Denies nausea, Denies vomiting Musculoskeletal: Denies myalgias Integumentary: Denies pruritus, Denies rash Neurological: Denies numbness, Denies weakness Psychiatric: Denies anxiety, Denies depression Endocrine: Denies fatigue, Denies weight change GENERAL: This is a 69-year-old in no apparent distress at the time of examination. Pleasant and cooperative. HEENT: Head is atraumatic, normocephalic. Pupils are equal, round, and reactive to light. Sclerae anicteric. Conjunctivae are clear. Mucus membranes of the mouth are moist. Neck is supple. RESPIRATORY: Clear to auscultation. No wheezes, rales, or rhonchi. No use of accessory muscles. Patient maintaining oxygen saturation greater than 92%. No c hest wall tenderness is noted on palpation or with deep breathing. CARDIOVASCULAR: Regular rate and rhythm. S1 and S2 noted. No systolic or diastolic murmur auscultated. No JVD noted. No S3 or S4 noted. GASTROINTESTINAL: No distention noted. Abdomen soft and round. Normal active bowel sounds auscultated x 4 quadrants. No pain or tenderness noted upon palpation. INTEGUMENTARY: No cyanosis. No jaundice. No rashes noted. No cellulitis noted. EXTREMITIES: 2+ peripheral pulses. No evidence of peripheral edema. No calf tenderness noted. NEUROLOGIC: Cranial nerves II-XII intact. Reduced ability to perform [id number] testing in right arm. Bilateral upper and lower extremity muscle strength and sensation intact. Cranial nerves II to XII grossly intact. PSYCHIATRIC: Awake, alert, and oriented X 3. Appropriate affect. Intact judgement and insight. Assessment/Plan: Patient is a 69-year-old female with a history of hypertension and osteoarthritis presented to the emergency department with constant vertigo for the past several weeks. Patient will be admitted to internal medicine service. Active: #. Acute to subacute ischemic stroke over the right cerebellar hemisphere #. Vertigo MRI showed acute versus subacute CVA involving the right cerebellar hemisphere. Nonspecific white matter changes, likely related to small vessel ischemic disease. Continue aspirin 81 mg daily and clopidogrel 75 mg daily for the next 21 days. After 21 days stop Plavix but continue aspirin indefinitely. Continue Lipitor 40 mg nightly Obtain lipid panel Patient will undergo an transesophageal echocardiogram by Dr. Harrington today. Awaiting recommendations. 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 Right mastoiditis CT of brain on 06/10/2024 shows findings for right mastoiditis Likely due to allergic reasons, no indication to start on antibiotics for now Consider ENT consult or follow-up outpatient upon discharge #. Normocytic anemia Hemoglobin 9.5 MCV 84 Patient denies hematochezia or melena Monitor morning CBC Chronic: #. Hypertension #. GERD #. Depression Continue amlodipine 10 mg daily Continue Protonix 40 mg daily Continue Lexapro 20 mg daily F: No restrictions E: Replete as needed N: Clear liquid diet A: EMS DVT prophylaxis: Heparin 5000 units SQ every 12 hours The patient is admitted with an anticipated less than 2 midnight stay for evaluation of vertigo CODE STATUS: Full code Discussed with: Patient Anticipated discharge place: Home Objective - Vital Signs Vital signs: Vital Signs Temp 97.9 F 06/13/24 10:55 Pulse 94 06/13/24 13:19 Resp 16 06/13/24 13:19 BP 128/55 06/13/24 13:19 Pulse Ox 98 06/13/24 13:19 FiO2 Intake & Output 06/12/24 06/13/24 06/13/24 18:59 06:59 18:59 Intake Total 10 450 Output Total 500 300 Balance 10 -500 150 Intake: IV 10 450 Invasive Line 2 10 Output: Urine 500 300 Other: Voiding Method Diaper Diaper External Catheter External Catheter # Voids 2 # Bowel Movements 1 - Labs CBC & Chem 7: 06/13/24 05:59 06/13/24 05:59 Labs: Abnormal Lab Results - Last 24 Hours (Table) 06/12/24 06/13/24 06/13/24 Range/Units 20:29 05:59 05:59 RBC 3.56 L (3.80-5.40) m/uL Hgb 9.5 L (11.4-16.0) gm/dL Hct 29.9 L (34.0-46.0) % Chloride 109 H (98-107) mmol/L Carbon Dioxide 18 L (22-30) mmol/L Glucose 130 H (74-99) mg/dL POC Glucose (mg/dL) 137 H (70-110) mg/dL 06/13/24 06/13/24 Range/Units 06:15 13:04 RBC (3.80-5.40) m/uL Hgb (11.4-16.0) gm/dL Hct (34.0-46.0) % Chloride (98-107) mmol/L Carbon Dioxide (22-30) mmol/L Glucose (74-99) mg/dL POC Glucose (mg/dL) 147 H 140 H (70-110) mg/dL
[2024-06-13 16:29] LABS: Glucose,Whole Blood 121 mg/dL (70-110)
--- NOTE | 2024-06-13 18:02 | CA ---
Transthoracic Echo Report Name: Katarina Burris Age: 69 Gender: F : 1955 Exam Date: 06/13/2024 11:09 Exam Location: [facility] Ht (in): 62 Wt (lb): 180 Ordering Physician: Kyle Ortega MD Attending/Referring Phys: Food Preparation Supervisor Angeli Rahman RDCS Procedure CPT: Indications: stroke Cardiac Hx: Technical Quality: Fair Contrast 1: Definity Total Dose (mL): 2 Contrast 2: Total Dose (mL): MEASUREMENTS (Male / Female) Normal Values 2D ECHO LV Diastolic Diameter PLAX 3.3 cm 4.2 - 5.9 / 3.9 - 5.3 cm LV Systolic Diameter PLAX 1.9 cm IVS Diastolic Thickness 1.2 cm 0.6 - 1.0 / 0.6 - 0.9 cm LVPW Diastolic Thickness 1.2 cm 0.6 - 1.0 / 0.6 - 0.9 cm LV Relative Wall Thickness 0.7 RV Internal Dim ED PLAX 2.2 cm LVOT Diameter 1.8 cm Aortic Root Diameter 2.5 cm LA Volume 39.8 cm??? 18 - 58 / 22 - 52 cm??? LA Volume Index 20.7 cm???/m??? 16 - 28 cm???/m??? DOPPLER AV Peak Velocity 96.3 cm/s AV Peak Gradient 3.7 mmHg AV Mean Velocity 50.6 cm/s AV Mean Gradient 1.5 mmHg AV Velocity Time Integral 11.4 cm LVOT Peak Velocity 69.3 cm/s LVOT Peak Gradient 1.9 mmHg LVOT Velocity Time Integral 13.5 cm LVOT Stroke Volume 35.0 cm??? LVOT Stroke Volume Index 19.1 ml/m??? LVOT Cardiac Index 2000.8 cm???/min???m??? AV Area Cont Eq vti 3.1 cm??? AV Area Cont Eq pk 1.9 cm??? MV Area PHT 5.4 cm??? Mitral E Point Velocity 57.8 cm/s Mitral A Point Velocity 98.7 cm/s Mitral E to A Ratio 0.6 MV Deceleration Time 141.2 ms MV E' Velocity 7.8 cm/s Mitral E to MV E' Ratio 7.4 TR Peak Velocity 237.0 cm/s TR Peak Gradient 22.5 mmHg Right Ventricular Systolic Press 27.5 mmHg FINDINGS Left Ventricle Mildly increased left ventricular wall thickness. Left ventricular cavity size normal. Normal left ventricular systolic function with no obvious regional wall motion abnormalities. Left ventricular ejection fraction is estimated at 55-60 %. Right Ventricle Normal right ventricular size and function. Right ventricular systolic pressure within normal limits. Right Atrium Normal right atrial size. Left Atrium Normal left atrial size. Mitral Valve Structurally normal mitral valve. Mild mitral regurgitation. Aortic Valve Trileaflet aortic valve. No aortic valve stenosis or regurgitation. Tricuspid Valve Structurally normal tricuspid valve. Mild tricuspid regurgitation. Pulmonic Valve Pulmonic valve not well visualized. Pericardium No pericardial effusion. Aorta Normal size aortic root and proximal ascending aorta. CONCLUSIONS Technically difficult study. Definity ECHO contrast used for improved visualization of the endocardial borders (inadequate visualization of two or more contiguous segments). Normal left ventricular size and systolic function Mild mitral and tricuspid regurgitation Previewed by: Dr. Last Harrington MD (Electronically Signed) Final Date: 13 June 2024 18:01
[2024-06-13 20:06] LABS: Glucose,Whole Blood 132 mg/dL (70-110)
[2024-06-14 06:16] LABS: Glucose,Whole Blood 141 mg/dL (70-110)
[2024-06-14 11:50] LABS: Glucose,Whole Blood 117 mg/dL (70-110)
--- NOTE | 2024-06-14 13:36 | P.PN ---
Subjective Progress Note Date: 06/14/24 Per Medical H&P, "Patient is a 69-year-old female with a history of hypertension and osteoarthritis presented to the emergency department with constant vertigo for the past several weeks. Patient states that she has never had vertigo before this event. She recently visited her primary care physician and was prescribed with meclizine which she did report some improvement however the vertigo got worse over the past week which made the patient to come to the ED for evaluation. She currently reports a room spinning sensation that would last several minutes and would go away. However vertigo that started this morning has been constant and did not go away. Patient does report some nausea and an episode of vomiting yesterday. Patient also reports some fullness in her right ear. Patient denies fever, chills, chest pain, shortness of breath, belly pain, dysuria, tingling or numbness in her arms or legs, hematochezia or melena. ED documentation reviewed. In the ED patient was treated with Valium 2.5 mg IV x 2, meclizine 50 mg x 1, Reglan 10 mg IV x 1, normal saline at 130 cc an hour, metoprolol tartrate 12.5 mg x 1 Vitals on admission temperature 99.3, pulse rate 113, respiratory rate 16, blood pressure 143/75, O2 sat 98% on room air EKG independently interpreted as sinus rhythm with ventricular rate of 93 bpm, QTc intervals 422 ms, possible left atrial enlargement, possible inferior myocardial infarction, probably old CXR shows no acute cardiopulmonary disease/process CT of brain shows no acute intracranial process. Follow-up MRI can be performed as clinically indicated. Clinical correlation recommended for right mastoiditis . CT angio of head and neck shows no flow-limiting stenosis of bilateral carotid bifurcations. And normal [place]. Labs on admission show WBC 10.3, hemoglobin 9.1, hematocrit 28.2, platelet 335, PT 10.4, INR 0.9, PTT 20.4, sodium 137, potassium 4.4, chloride 109, carbon dioxide 17, BUN 18, creatinine 0.99, glucose 215, troponin less than 0.012" Progress note for 06/12/2024: Patient was seen at bedside today. Reports the vertigo is getting better. However, she still reports right ear fullness. Patient underwent an MRI of brain this morning which showed acute versus subacute CVA involving the right cerebellar hemisphere. Nonspecific white matter changes, likely related to small vessel ischemic disease. Patient denies other complaints at this time. Denies fever, chills, chest pain, shortness of breath, nausea/vomiting, belly pain, dysuria. Progress note for 06/13/2024: Patient was seen at bedside today. She reports feeling better compared to yesterday. Vertigo is still there but has improved since yesterday. Patient will undergo an ESTEFANÍA with Dr. Harrington today. Patient denies other complaints at this time. Denies fever, chills, chest pain, shortness of breath, nausea/vomiting, belly pain, dysuria. Progress note for 06/14/2024: Patient was seen at bedside today. She reports feeling better compared to yesterday. Vertigo is still there but has improved. Transthoracic echo was performed yesterday which showed left ventricular ejection fraction of 55 to 60%. 30-day event monitor has been placed. Transesophageal echocardiogram performed yesterday showed dilated left atrium with normal appearance of the left atrial appendage. Normal ventricular size and systolic function. Mild to moderate mitral and tricuspid regurgitation. No shunting across the interatrial septum. Normal appearance of the descending thoracic aorta. Patient denies other acute complaints at this time. PT was not able to work with patient this morning because patient was feeling dizzy. Nurse tried getting the patient up however patient walked 2 steps and began to fall backwards. Patient needs to be reevaluated by PT. Review of Systems Constitutional: Denies chills, Denies fever Eyes: denies blurred vision, double vision or pain Ears, nose, mouth and throat: Denies headache, Denies sore throat Cardiovascular: Denies chest pain, Denies shortness of breath Respiratory: Denies cough Gastrointestinal: Denies abdominal pain, Denies diarrhea, Denies nausea, Denies vomiting Musculoskeletal: Denies myalgias Integumentary: Denies pruritus, Denies rash Neurological: Denies numbness, Denies weakness Psychiatric: Denies anxiety, Denies depression Endocrine: Denies fatigue, Denies weight change GENERAL: This is a 69-year-old in no apparent distress at the time of examination. Pleasant and cooperative. HEENT: Head is atraumatic, normocephalic. Pupils are equal, round, and reactive to light. Sclerae anicteric. Conjunctivae are clear. Mucus membranes of the mouth are moist. Neck is supple. RESPIRATORY: Clear to auscultation. No wheezes, rales, or rhonchi. No use of accessory muscles. Patient maintaining oxygen saturation greater than 92%. No chest wall tenderness is noted on palpation or with deep breathing. CARDIOVASCULAR: Regular rate and rhythm. S1 and S2 noted. No systolic or diastolic murmur auscultated. No JVD noted. No S3 or S4 noted. GASTROINTESTINAL: No distention noted. Abdomen soft and round. Normal active bowel sounds auscultated x 4 quadrants. No pain or tenderness noted upon palpation. INTEGUMENTARY: No cyanosis. No jaundice. No rashes noted. No cellulitis noted. EXTREMITIES: 2+ peripheral pulses. No evidence of peripheral edema. No calf tenderness noted. NEUROLOGIC: Cranial nerves II-XII intact. Improved ability to perform [id number] testing in right arm. Bilateral upper and lower extremity muscle strength and sensation intact. Cranial nerves II to XII grossly intact. PSYCHIATRIC: Awake, alert, and oriented X 3. Appropriate affect. Intact judgement and insight. Assessment/Plan: Patient is a 69-year-old female with a history of hypertension and osteoarthritis presented to the emergency department with constant vertigo for the past several weeks. Patient will be admitted to internal medicine service. Active: #. Acute to subacute ischemic stroke over the right cerebellar hemisphere #. Vertigo MRI showed acute versus subacute CVA involving the right cerebellar hemisphere. Nonspecific white matter changes, likely related to small vessel ischemic disease. Continue aspirin 81 mg daily and clopidogrel 75 mg daily for the next 21 days. After 21 days stop Plavix but continue aspirin indefinitely. Continue Lipitor 40 mg nightly Obtain lipid panel Patient underwent transesophageal echocardiogram on 06/13/2024. Continue meclizine 25 mg 4 times daily Continue Zofran as needed for nausea and vomiting Continue java lead engineer Fall precautions Pending reevaluation by PT #. Right mastoiditis CT of brain on 06/10/2024 shows findings for right mastoiditis Likely due to allergic reasons, no indication to start on antibiotics for now Consider ENT consult or follow-up outpatient upon discharge #. Normocytic anemia Hemoglobin 9.5 MCV 84 Patient denies hematochezia or melena Monitor morning CBC Chronic: #. Hypertension #. GERD #. Depression Continue amlodipine 10 mg daily Continue Protonix 40 mg daily Continue Lexapro 20 mg daily F: No restrictions E: Replete as needed N: Clear liquid diet A: EMS DVT prophylaxis: Heparin 5000 units SQ every 12 hours The patient is admitted with an anticipated less than 2 midnight stay for evaluation of vertigo CODE STATUS: Full code Discussed with: Patient Anticipated discharge place: Home Objective - Vital Signs Vital signs: Vital Signs Temp 98.3 F 06/13/24 19:42 Pulse 89 06/14/24 11:43 Resp 16 06/14/24 11:43 BP 151/74 06/14/24 11:43 Pulse Ox 100 06/14/24 11:43 FiO2 Intake & Output 06/13/24 06/14/24 06/14/24 18:59 06:59 18:59 Intake Total 450 Output Total 700 Balance -250 Weight 86.5 kg Intake: IV 450 Output: Urine 700 Other: Voiding Method Diaper Diaper Diaper External Catheter External Catheter External Catheter # Voids 0 # Bowel Movements 1 - Labs CBC & Chem 7: 06/13/24 05:59 06/13/24 05:59 Labs: Abnormal Lab Results - Last 24 Hours (Table) 06/13/24 06/13/24 06/14/24 Range/Units 16:27 20:04 06:14 POC Glucose (mg/dL) 121 H 132 H 141 H (70-110) mg/dL 06/14/24 Range/Units 11:48 POC Glucose (mg/dL) 117 H (70-110) mg/dL
[2024-06-14 16:48] LABS: Glucose,Whole Blood 152 mg/dL (70-110)
[2024-06-14 20:19] LABS: Glucose,Whole Blood 117 mg/dL (70-110)
[2024-06-14] MEDS: ACETAMINOPHEN TAB 325 MG TAB PO PRN (23:54)
[2024-06-15 06:02] LABS: Glucose,Whole Blood 138 mg/dL (70-110)
[2024-06-15 11:47] LABS: Glucose,Whole Blood 135 mg/dL (70-110)
[2024-06-15 16:34] LABS: Glucose,Whole Blood 128 mg/dL (70-110)
[2024-06-15 20:00] LABS: Glucose,Whole Blood 137 mg/dL (70-110)
--- NOTE | 2024-06-16 03:04 | P.PN ---
Subjective Progress Note Date: 06/15/24 Patient is a 69-year-old female with a history of hypertension and osteoarthritis presented to the emergency department with constant vertigo for the past several weeks. Patient states that she has never had vertigo before this event. She recently visited her primary care physician and was prescribed with meclizine which she did report some improvement however the vertigo got worse over the past week which made the patient to come to the ED for evaluation. She currently reports a room spinning sensation that would last several minutes and would go away. However vertigo that started this morning has been constant and did not go away. Patient does report some nausea and an episode of vomiting yesterday. Patient also reports some fullness in her right ear. Patient denies fever, chills, chest pain, shortness of breath, belly pain, dysuria, tingling or numbness in her arms or legs, hematochezia or melena. ED documentation reviewed. In the ED patient was treated with Valium 2.5 mg IV x 2, meclizine 50 mg x 1, Reglan 10 mg IV x 1, normal saline at 130 cc an hour, metoprolol tartrate 12.5 mg x 1 Vitals on admission temperature 99.3, pulse rate 113, respiratory rate 16, blood pressure 143/75, O2 sat 98% on room air EKG independently interpreted as sinus rhythm with ventricular rate of 93 bpm, QTc intervals 422 ms, possible left atrial enlargement, possible inferior myocardial infarction, probably old CXR shows no acute cardiopulmonary disease/process CT of brain shows no acute intracranial process. Follow-up MRI can be performed as clinically indicated. Clinical correlation recommended for right mastoiditis . CT angio of head and neck shows no flow-limiting stenosis of bilateral carotid bifurcations. And normal [place] [facility] [place]. Labs on admission show WBC 10.3, hemoglobin 9.1, hematocrit 28.2, platelet 335, PT 10.4, INR 0.9, PTT 20.4, sodium 137, potassium 4.4, chloride 109, carbon dioxide 17, BUN 18, creatinine 0.99, glucose 215, troponin less than 0.012" Progress note for 06/12/2024: Patient was seen at bedside today. Reports the vertigo is getting better. However, she still reports right ear fullness. Patient underwent an MRI of brain this morning which showed acute versus subacute CVA involving the right cerebellar hemisphere. Nonspecific white matter changes, likely related to small vessel ischemic disease. Patient denies other complaints at this time. Denies fever, chills, chest pain, shortness of breath, nausea/vomiting, belly pain, dysuria. Progress note for 06/13/2024: Patient was seen at bedside today. She reports feeling better compared to yesterday. Vertigo is still there but has improved since yesterday. Patient will undergo an ESTEFANÍA with Dr. Harrington today. Patient denies other complaints at this time. Denies fever, chills, chest pain, shortness of breath, nausea/vomiting, belly pain, dysuria. Progress note for 06/14/2024: Patient was seen at bedside today. She reports feeling better compared to yesterday. Vertigo is still there but has improved. Transthoracic echo was performed yesterday which showed left ventricular ejection fraction of 55 to 60 %. 30-day event monitor has been placed. Transesophageal echocardiogram performed yesterday showed dilated left atrium with normal appearance of the left atrial appendage. Normal ventricular size and systolic function. Mild to moderate mitral and tricuspid regurgitation. No shunting across the interatrial septum. Normal appearance of the descending thoracic aorta. Patient denies other acute complaints at this time. PT was not able to work with patient this morning because patient was feeling dizzy. Nurse tried getting the patient up however patient walked 2 steps and began to fall backwards. Patient needs to be reevaluated by PT. 06/15/2024 Patient is seen in follow-up today continues to report some occasional dizziness although has significantly improved from previous. Patient being followed by cardiology along with neurology and awaiting PT/OT therapy. Patient continues to report weakness of the right lower extremity and is showing some improvements on the right upper extremity. Family is concerned as patient would be high risk for falls and recurrent rehospitalization's. Will await PT/OT therapy. Continue current medications and patient will also need an event monitor on discharge per cardiology Review of systems: Constitutional: No reports of fatigue, fever, or chills Cardiovascular: No reports of chest pain or palpitations Respiratory: No reports of shortness of breath or cough GI: No reports of nausea, vomiting, or diarrhea : No reports of dysuria or retention Neurovascular: reports of continued right lower extremity weakness, right upper extremity hand improving All medications have been reviewed Physical exam: GENERAL: This is a 69-year-old in no apparent distress at the time of examination. Pleasant and cooperative. Well-developed, elderly appearing, obese HEENT: Head is atraumatic, normocephalic. Pupils are equal, round, and reactive to light. Sclerae anicteric. Conjunctivae are clear. Mucus membranes of the mouth are moist. Neck is supple. RESPIRATORY: Clear to auscultation. No wheezes, rales, or rhonchi. No use of ac cessory muscles. Patient maintaining oxygen saturation greater than 92%. No chest wall tenderness is noted on palpation or with deep breathing. CARDIOVASCULAR: Regular rate and rhythm. S1 and S2 noted. No systolic or diastolic murmur auscultated. No JVD noted. No S3 or S4 noted. GASTROINTESTINAL: No distention noted. Abdomen soft and round. Normal active bowel sounds auscultated x 4 quadrants. No pain or tenderness noted upon palpation. INTEGUMENTARY: No cyanosis. No jaundice. No rashes noted. No cellulitis noted. EXTREMITIES: 2+ peripheral pulses. No evidence of peripheral edema. No calf tenderness noted. NEUROLOGIC: Cranial nerves II-XII intact. Improved ability to perform [id number] testing in right arm. Bilateral upper extremity muscle strength and sensation intact. Cranial nerves II to XII grossly intact. Continued weakness on the right lower extremity strength 2/5 PSYCHIATRIC: Awake, alert, and oriented X 3. Appropriate affect. Intact judg ement and insight. Assessment/Plan: Patient is a 69-year-old female with a history of hypertension and osteoarthritis presented to the emergency department with constant vertigo for the past several weeks. Patient was admitted to internal medicine service with neurology on consult. Active: #. Acute to subacute ischemic stroke over the right cerebellar hemisphere #. Vertigo MRI showed acute versus subacute CVA involving the right cerebellar hemisphere. Nonspecific white matter changes, likely related to small vessel ischemic disease. Continue aspirin 81 mg daily and clopidogrel 75 mg daily for the next 21 days. After 21 days stop Plavix but continue aspirin indefinitely. Continue Lipitor 40 mg nightly Obtain lipid panel Patient underwent transesophageal echocardiogram on 06/13/2024. Continue meclizine 25 mg 4 times daily Continue Zofran as needed for nausea and vomiting Continue equipment monitor phototypesetting Fall precautions Pending reevaluation by PT #. Right mastoiditis CT of brain on 06/10/2024 shows findings for right mastoiditis Likely due to allergic reasons, no indication to start on antibiotics for now Consider ENT consult or follow-up outpatient upon discharge #. Normocytic anemia Hemoglobin 9.5 MCV 84 Patient denies hematochezia or melena Monitor morning CBC Chronic: #. Hypertension #. GERD #. Depression Continue amlodipine 10 mg daily Continue Protonix 40 mg daily Continue Lexapro 20 mg daily F: No restrictions E: Replete as needed N: Clear liquid diet A: EMS DVT prophylaxis: Heparin 5000 units SQ every 12 hours The patient is admitted with an anticipated less than 2 midnight stay for evaluation of vertigo CODE STATUS: Full code Discussed with: Patient Anticipated discharge place: Home Plan: Patient evaluated by neurology and currently awaiting PT/OT therapy. Patient reports her right hand strength has improved although her right lower extremity continues to be heavier and having difficulty with gait and continued right foot weakness. Will await PT/OT therapy evaluation to discuss discharge planning Patient will need outpatient follow-up with neurology and primary care provider on discharge. Possible discharge in the next 24 hours. The impression and plan of care has been dictated by Megan Desai, Nurse Practitioner as directed. Dr. Maddie MD I have performed a history and examination and MDM of this patient, discussed the same with the dictator, and agree with the dictator's assessment and plan as written ,documented as a scribe. Based on total visit time, I have performed more than 50% of the visit. Objective - Vital Signs Vital signs: Vital Signs Temp 98.3 F 06/15/24 20:05 Pulse 98 06/15/24 23:20 Resp 16 06/16/24 02:15 BP 119/69 06/15/24 23:20 Pulse Ox 97 06/15/24 23:20 FiO2 Intake & Output 06/15/24 06/15/24 06/16/24 06:59 18:59 06:59 Output Total 400 Balance -400 Weight 86.6 kg Output: Urine 400 Other: Voiding Method Bedside Commode Bedside Commode Bedside Commode # Voids 1 1 # Bowel Movements 1 - Labs CBC & Chem 7: 06/13/24 05:59 06/13/24 05:59 Labs: Abnormal Lab Results - Last 24 Hours (Table) 06/15/24 06/15/24 06/15/24 Range/Units 06:01 11:46 16:28 POC Glucose (mg/dL) 138 H 135 H 128 H (70-110) mg/dL 06/15/24 Range/Units 19:59 POC Glucose (mg/dL) 137 H (70-110) mg/dL
[2024-06-16 05:52] LABS: Basophils % (A) 1 %; Eosinophils # (A) 0.2 k/uL (0-0.7); Eosinophils % (A) 3 %; HCT 28.9 % (34.0-46.0); HGB 9.2 gm/dL (11.4-16.0); Hypochromasia Moderate; Lymphocytes # (A) 1.7 k/uL (1.0-4.8); Lymphocytes % (A) 25 %; MCH 26.8 pg (25.0-35.0); MCV 83.8 fL (80.0-100.0); Mean Platelet Volume 7.3; Monocytes # (A) 0.4 k/uL (0-1.0); Monocytes % (A) 7 %; Neutrophils % (A) 61 %; Platelet Count 315 k/uL (150-450); RBC 3.45 m/uL (3.80-5.40); RDW 14.8 % (11.5-15.5); WBC 6.6 k/uL (3.8-10.6)
[2024-06-16 05:56] LABS: Glucose,Whole Blood 151 mg/dL (70-110)
[2024-06-16 06:48] LABS: African American GFR (CKD) 55 (>60 ml/min/1.73 sqM); Anion Gap 8 mmol/L; Blood Urea Nitrogen 16 mg/dL (7-17); Calcium 9.5 mg/dL (8.4-10.2); Carbon Dioxide 22 mmol/L (22-30); Chloride 105 mmol/L (98-107); Glucose 123 mg/dL (74-99); Non-African American GFR(CKD) 48 (>60 ml/min/1.73 sqM); Potassium 3.7 mmol/L (3.5-5.1); Sodium 135 mmol/L (137-145)
[2024-06-16 11:14] LABS: Glucose,Whole Blood 115 mg/dL (70-110)
--- NOTE | 2024-06-16 14:17 | P.PN ---
Subjective Progress Note Date: 06/16/24 Patient is a 69-year-old female with a history of hypertension and osteoarthritis presented to the emergency department with constant vertigo for the past several weeks. Patient states that she has never had vertigo before this event. She recently visited her primary care physician and was prescribed with meclizine which she did report some improvement however the vertigo got worse over the past week which made the patient to come to the ED for evaluation. She currently reports a room spinning sensation that would last several minutes and would go away. However vertigo that started this morning h as been constant and did not go away. Patient does report some nausea and an episode of vomiting yesterday. Patient also reports some fullness in her right ear. Patient denies fever, chills, chest pain, shortness of breath, belly pain, dysuria, tingling or numbness in her arms or legs, hematochezia or melena. ED documentation reviewed. In the ED patient was treated with Valium 2.5 mg IV x 2, meclizine 50 mg x 1, Reglan 10 mg IV x 1, normal saline at 130 cc an hour, metoprolol tartrate 12.5 mg x 1 Vitals on admission temperature 99.3, pulse rate 113, respiratory rate 16, blood pressure 143/75, O2 sat 98% on room air EKG independently interpreted as sinus rhythm with ventricular rate of 93 bpm, QTc intervals 422 ms, possible left atrial enlargement, possible inferior myocardial infarction, probably old CXR shows no acute cardiopulmonary disease/process CT of brain shows no acute intracranial process. Follow-up MRI can be performed as clinically indicated. Clinical correlation recommended for right mastoiditis . CT angio of head and neck shows no flow-limiting stenosis of bilateral carotid bifurcations. And normal [place] [facility] [place]. Labs on admission show WBC 10.3, hemoglobin 9.1, hematocrit 28.2, platelet 335, PT 10.4, INR 0.9, PTT 20.4, sodium 137, potassium 4.4, chloride 109, carbon dioxide 17, BUN 18, creatinine 0.99, glucose 215, troponin less than 0.012" Progress note for 06/12/2024: Patient was seen at bedside today. Reports the vertigo is getting better. However, she still reports right ear fullness. Patient underwent an MRI of brain this morning which showed acute versus subacute CVA involving the right cerebellar hemisphere. Nonspecific white matter changes, likely related to sma ll vessel ischemic disease. Patient denies other complaints at this time. Denies fever, chills, chest pain, shortness of breath, nausea/vomiting, belly pain, dysuria. Progress note for 06/13/2024: Patient was seen at bedside today. She reports feeling better compared to yesterday. Vertigo is still there but has improved since yesterday. Patient will undergo an ESTEFANÍA with Dr. Harrington today. Patient denies other complaints at this time. Denies fever, chills, chest pain, shortness of breath, na usea/vomiting, belly pain, dysuria. Progress note for 06/14/2024: Patient was seen at bedside today. She reports feeling better compared to yesterday. Vertigo is still there but has improved. Transthoracic echo was performed yesterday which showed left ventricular ejection fraction of 55 to 60%. 30-day event monitor has been placed. Transesophageal echocardiogram performed yesterday showed dilated left atrium with normal appearance of the left atrial appendage. Normal ventricular size and systolic function. Mild to moderate mitral and tricuspid regurgitation. No shunting across the interatrial septum. Normal appearance of the descending thoracic aorta. Patient denies other acute complaints at this time. PT was not able to work with patient this morning because patient was feeling dizzy. Nurse tried getting the patient up however patient walked 2 steps and began to fall backwards. Patient needs to be reevaluated by PT. 06/15/2024 Patient is seen in follow-up today continues to report some occasional dizziness although has significantly improved from previous. Patient being followed by cardiology along with neurology and awaiting PT/OT therapy. Patient continues to report weakness of the right lower extremity and is showing some improvements on the right upper extremity. Family is concerned as patient would be high risk for falls and recurrent rehospitalization's. Will await PT/OT therapy. Continue current medications and patient will also need an event monitor on discharge per cardiology 06/16/2024 Patient seen in follow-up today continues to report some occasional dizziness although has improved significantly from yesterday. Patient still reports some weakness of the right lower extremity. She reports that the vertigo has largely resolved. Physical therapy determined that the patient is a high fall risk and would benefit from a inpatient rehab at this time. Patient is a good candidate for inpatient rehab and will be able to participate in advanced 3-hour therapy sessions. Denies other acute complaints at this time. Denies fever, chills, chest pain, shortness of, nausea or vomiting. Review of Systems Constitutional: Denies chills, Denies fever Eyes: denies blurred vision, double vision or pain Ears, nose, mouth and throat: Denies headache, Denies sore throat Cardiovascular: Denies chest pain, Denies shortness of breath Respiratory: Denies cough Gastrointestinal: Denies abdominal pain, Denies diarrhea, Denies nausea, Denies vomiting Musculoskeletal: Denies myalgias Integumentary: Denies pruritus, Denies rash Neurological: Denies numbness, Denies weakness Psychiatric: Denies anxiety, Denies depression Endocrine: Denies fatigue, Denies weight change GENERAL: This is a 69-year-old in no apparent distress at the time of examination. Pleasant and cooperative. HEENT: Head is atraumatic, normocephalic. Pupils are equal, round, and reactive to light. Sclerae anicteric. Conjunctivae are clear. Mucus membranes of the mout h are moist. Neck is supple. RESPIRATORY: Clear to auscultation. No wheezes, rales, or rhonchi. No use of accessory muscles. Patient maintaining oxygen saturation greater than 92%. No chest wall tenderness is noted on palpation or with deep breathing. CARDIOVASCULAR: Regular rate and rhythm. S1 and S2 noted. No systolic or diastolic murmur auscultated. No JVD noted. No S3 or S4 noted. GASTROINTESTINAL: No distention noted. Abdomen soft and round. Normal active bowel sounds auscultated x 4 quadrants. No pain or tenderness noted upon palpation. INTEGUMENTARY: No cyanosis. No jaundice. No rashes noted. No cellulitis noted. EXTREMITIES: 2+ peripheral pulses. No evidence of peripheral edema. No calf tenderness noted. NEUROLOGIC: Cranial nerves II-XII intact. Improved ability to perform [id number] testing in right arm. Bilateral upper and lower extremity muscle strength and sensation intact. Cranial nerves II to XII grossly intact. PSYCHIATRIC: Awake, alert, and oriented X 3. Appropriate affect. Intact judgement and insight. Assessment/Plan: Patient is a 69-year-old female with a history of hypertension and osteoarthritis presented to the emergency department with constant vertigo for the past several weeks. Patient was admitted to internal medicine service with neurology on consult. Active: #. Acute to subacute ischemic stroke over the right cerebellar hemisphere #. Vertigo MRI showed acute versus subacute CVA involving the right cerebellar hemisphere. Nonspecific white matter changes, likely related to small vessel ischemic disease. Continue aspirin 81 mg daily and clopidogrel 75 mg daily for the next 21 days. After 21 days stop Plavix but continue aspirin indefinitely. Continue Lipitor 40 mg nightly Obtain lipid panel Patient underwent transesophageal echocardiogram on 06/13/2024. Continue meclizine 25 mg 4 times daily Continue Zofran as needed for nausea and vomiting Continue campus monitor Fall precautions Physical therapy on 06/16/2024 determined patient is a high risk for falling and would benefit from a inpatient rehab at this time. Patient is a good candidate for inpatient rehab and will be able to participate in advanced 3-hour therapy sessions. #. Right mastoiditis CT of brain on 06/10/2024 shows findings for right mastoiditis Likely due to allergic reasons, no indication to start on antibiotics for now Consider ENT consult or follow-up outpatient upon discharge #. Normocytic anemia Hemoglobin 9.5 MCV 84 Patient denies hematochezia or melena Monitor morning CBC Chronic: #. Hypertension #. GERD #. Depression Continue amlodipine 10 mg daily Continue Protonix 40 mg daily Continue Lexapro 20 mg daily F: No restrictions E: Replete as needed N: Clear liquid diet A: EMS DVT prophylaxis: Heparin 5000 units SQ every 12 hours The patient is admitted with an anticipated more than 2 midnight stay for evaluation of acute ischemic stroke over the right cerebellar hemisphere CODE STATUS: Full code Discussed with: Patient Anticipated discharge place: Home Objective - Vital Signs Vital signs: Vital Signs Temp 97.9 F 06/16/24 11:30 Pulse 85 06/16/24 11:30 Resp 16 06/16/24 11:30 BP 118/71 06/16/24 11:30 Pulse Ox 98 06/16/24 11:30 FiO2 Intake & Output 06/15/24 06/16/24 06/16/24 18:59 06:59 18:59 Intake Total 440 Output Total 400 200 Balance -400 240 Weight 79.8 kg Intake: Oral 440 Output: Urine 400 200 Other: Voiding Method Bedside Commode Bedside Commode Bedside Commode # Voids 1 1 1 # Bowel Movements 1 - Labs CBC & Chem 7: 06/16/24 05:18 06/16/24 05:18 Labs: Abnormal Lab Results - Last 24 Hours (Table) 06/15/24 06/15/24 06/16/24 Range/Units 16:28 19:59 05:18 RBC 3.45 L (3.80-5.40) m/uL Hgb 9.2 L (11.4-16.0) gm/dL Hct 28.9 L (34.0-46.0) % Sodium (137-145) mmol/L Creatinine (0.52-1.04) mg/dL Glucose (74-99) mg/dL POC Glucose (mg/dL) 128 H 137 H (70-110) mg/dL 06/16/24 06/16/24 06/16/24 Range/Units 05:18 05:55 11:12 RBC (3.80-5.40) m/uL Hgb (11.4-16.0) gm/dL Hct (34.0-46.0) % Sodium 135 L (137-145) mmol/L Creatinine 1.18 H (0.52-1.04) mg/dL Glucose 123 H (74-99) mg/dL POC Glucose (mg/dL) 151 H 115 H (70-110) mg/dL
--- NOTE | 2024-06-16 15:14 | P.CONS ---
History of Present Illness - Reason for Consult Consult date: 06/16/24 rehab recommendations - Chief Complaint right sided weakness, CVA - History of Present Illness Ms Katarina Burris is a 69 y/o right handed female who lives with her in a single story home with 3 [address] with left handrail. Prior to admission, patient was independent with mobility and ADLs. Drives. Supportive family. She is retired, available 18/12. She has a cane at home. Patient is a 69-year-old female with a history of hypertension and osteoarthritis presented to the emergency department with constant vertigo for the past several weeks. Patient states that she has never had vertigo before this event. She recently visited her primary care physician and was prescribed with meclizine, did note some improvement, however the vertigo got worse over the past week prompting ER visit. She did have nausea and episode of vomiting. Patient also reports some fullness in her right ear. In the ED patient was treated with Valium 2.5 mg IV x 2, meclizine 50 mg x 1, Reglan 10 mg IV x 1, normal saline at 130 cc an hour, metoprolol tartrate 12.5 mg x 1 EKG independently interpreted as sinus rhythm with ventricular rate of 93 bpm, QTc intervals 422 ms, possible left atrial enlargement. CXR shows no acute cardiopulmonary disease/process. CT of brain shows no acute intracranial process. Follow-up MRI can be performed as clinically indicated. CT angio of head and neck shows no flow-limiting stenosis of bilateral carotid bifurcations And normal [place]. MRI of brain showed acute versus subacute CVA involving the right cerebellar hemisphere. Nonspecific white matter changes, likely related to small vessel ischemic disease. Transthoracic echo was performed yesterday which showed left ventricular ejection fraction of 55 to 60%. 30-day event monitor has been placed. Transesophageal echocardiogram performed yesterday showed dilated left atrium with normal appearance of the left atrial appendage. Normal ventricular size and systolic function. Mild to moderate mitral and tricuspid regurgitation. No shunting across the interatrial septum. Normal appearance of the descending thoracic aorta. PM&R consulted for rehab recommendations. Patient evaluated by therapies; min assist 16 ft with gait, bathing min assist, LB dressing mod assist. T[employer]ER was ordered. 06/16/24: Patient states she is doing 'ok', but has noticed more right sided weakness and balance issues than when she first came in. She has dizziness, worse with movement. She reports her double vision has improved some. She had a BM yesterday. She reports intermittent right hand numbness. She denies difficulty with swallowing. Per patient's , more right sided weakness and balance issues than admission. He also reports she has a history of bipolar disorder, feels her having rehab closer to home would be best, patient agrees. Review of Systems reviewed, as above in subjective Past Medical History Past Medical History: Eye Disorder, Hypertension, Osteoarthritis (OA) Additional Past Medical History / Comment(s): GLAUCOMA. MILD OA. History of Any Multi-Drug Resistant Organisms: None Reported Past Surgical History: Section Additional Past Surgical History / Comment(s): LAPAROSCOPY, Past Anesthesia/Blood Transfusion Reactions: Motion Sickness Past Psychological History: Bipolar Smoking Status: Former smoker - Past Family History Mother Family Medical History: No Reported History Medications and Allergies Home Medications Medication Instructions Recorded Confirmed Type Escitalopram [Lexapro] 20 mg PO DAILY 06/10/24 06/10/24 History Meclizine [Antivert] 25 mg PO TID 06/10/24 06/10/24 History Pantoprazole [Protonix] 40 mg PO DAILY 06/10/24 06/10/24 History QUEtiapine FUMARATE [SEROquel] 300 mg PO HS 06/10/24 06/10/24 History amLODIPine [Norvasc] 10 mg PO DAILY 06/10/24 06/10/24 History buPROPion XL [Wellbutrin XL] 300 mg PO DAILY 06/10/24 06/10/24 History Aspirin 81 mg PO DAILY 30 Days #30 tab 06/13/24 Rx Atorvastatin [Lipitor] 40 mg PO HS 30 Days #30 tablet 06/13/24 Rx Clopidogrel [Plavix] 75 mg PO DAILY 20 Days #20 tablet 06/13/24 Rx Allergies Allergy/AdvReac Type Severity Reaction Status Date / Time ampicillin Allergy Severe LOWERED Verified 06/10/24 11:48 IMMUNE SYSTEM Physical Exam Vitals: Vital Signs Temp Pulse Pulse Pulse Resp BP BP 06/16/24 08:25 98.3 F 108 H 16 137/73 06/16/24 04:29 105 H 16 126/70 06/16/24 02:15 16 06/15/24 23:20 98 16 119/69 06/15/24 20:15 16 01/19/25 20:05 98.3 F 97 16 114/67 06/15/24 16:00 98 18 06/15/24 14:00 87 89 16 BP Pulse Ox 06/16/24 08:25 97 06/16/24 04:29 98 06/16/24 02:15 06/15/24 23:20 97 06/15/24 20:15 06/15/24 20:05 96 06/15/24 16:00 156/70 97 06/15/24 14:00 Intake and Output 06/15/24 06/16/24 06/16/24 22:59 06:59 14:59 Intake Total 200 Output Total 200 Balance 0 Intake: Oral 200 Output: Urine 200 Other: Voiding Method Bedside Commode Bedside Commode Bedside Commode # Voids 1 1 1 # Bowel Movements 1 Weight 79.8 kg GENERAL: WDWN elderly female, sitting in recliner with legs elevated, at the bedside. HEENT: Head is atraumatic, normocephalic. Pupils are equal, round. Mucus membranes of the mouth are moist. RESPIRATORY: Clear to auscultation. No wheezes, rales, or rhonchi. No use of accessory muscles. CARDIOVASCULAR: quality assurance monitor on. no acute cardiac distress GASTROINTESTINAL: No distention noted. Abdomen soft and round, non tender INTEGUMENTARY: No cyanosis. No jaundice. No rashes noted. EXTREMITIES: Trace LE edema NEUROLOGIC: A & O x 4, speech is clear and fluent. Slight right facial droop, otherwise CN intact Right FTN and HTS impaired-dysmetria MMT: LUE and LLE 5/5; RUE 4+/5, RLE 4/5 PSYCHIATRIC: Calm, cooperative. Results CBC & Chem 7: 06/16/24 05:18 06/16/24 05:18 Labs: Abnormal Lab Results - Last 24 Hours (Table) 06/15/24 06/15/24 06/16/24 Range/Units 16:28 19:59 05:18 RBC 3.45 L (3.80-5.40) m/uL Hgb 9.2 L (11.4-16.0) gm/dL Hct 28.9 L (34.0-46.0) % Sodium (137-145) mmol/L Creatinine (0.52-1.04) mg/dL Glucose (74-99) mg/dL POC Glucose (mg/dL) 128 H 137 H (70-110) mg/dL 06/16/24 06/16/24 06/16/24 Range/Units 05:18 05:55 11:12 RBC (3.80-5.40) m/uL Hgb (11.4-16.0) gm/dL Hct (34.0-46.0) % Sodium 135 L (137-145) mmol/L Creatinine 1.18 H (0.52-1.04) mg/dL Glucose 123 H (74-99) mg/dL POC Glucose (mg/dL) 151 H 115 H (70-110) mg/dL Assessment and Plan Assessment: #. Right hemiparesis and ataxia 2/2 Acute to subacute ischemic stroke over the right cerebellar hemisphere - Recommending IPR, patient and patient's would like referral sent to [facility], would prefer to be closer to home #Ataxia #. Vertigo MRI showed acute versus subacute CVA involving the right cerebellar hemisphere. Nonspecific white matter changes, likely related to small vessel ischemic disease. Continue aspirin 81 mg daily and clopidogrel 75 mg daily for the next 21 days. After 21 days stop Plavix but continue aspirin indefinitely. Continue Lipitor 40 mg nightly #. Right mastoiditis CT of brain on 06/10/2024 shows findings for right mastoiditis Consider ENT consult or follow-up outpatient upon discharge #. Normocytic anemia Hemoglobin 9.5 MCV 84 Patient denies hematochezia or melena Monitor morning CBC #. Hypertension #. GERD #. Depression #DVT prophylaxis: Heparin 5000 units SQ every 12 hours Dispo: Recommended IPR, patient and prefer [facility] [place] as she does not have out of network benefits for [facility] IPR. Offered for Case Management to send Referrals to [facility] but they declined. Patient seen and examined in coordination with Dr Hu
[2024-06-16 16:12] LABS: Glucose,Whole Blood 121 mg/dL (70-110)
[2024-06-16 19:49] LABS: Glucose,Whole Blood 149 mg/dL (70-110)
[2024-06-17 05:55] LABS: Glucose,Whole Blood 159 mg/dL (70-110)
[2024-06-17 10:22] LABS: African American GFR (CKD) 58 (>60 ml/min/1.73 sqM); Anion Gap 9 mmol/L; Blood Urea Nitrogen 14 mg/dL (7-17); Calcium 9.6 mg/dL (8.4-10.2); Carbon Dioxide 22 mmol/L (22-30); Chloride 104 mmol/L (98-107); Glucose 139 mg/dL (74-99); Non-African American GFR(CKD) 51 (>60 ml/min/1.73 sqM); Potassium 3.9 mmol/L (3.5-5.1); Sodium 135 mmol/L (137-145)
--- NOTE | 2024-06-17 11:06 | CT ---
EXAMINATION TYPE: CT brain wo con DATE OF EXAM: 06/17/2024 COMPARISON: CT brain 1 week earlier. MRI brain 5 days earlier. CLINICAL INDICATION: Female, 69 years old with history of ams, change in speech this am; PHH, fu cva TECHNIQUE: CT scan of the head is performed without contrast. CT DLP: 1154.5 mGycm Automated exposure control for dose reduction was used. FINDINGS: There is no acute intracranial hemorrhage or midline shift identified. There is mild diff use ventricular and sulcal prominence redemonstrated. There mild to moderate is low-attenuation in t he deep and periventricular white matter redemonstrated. Heterogeneous hypodense appearance to the ri ght cerebellar hemisphere consistent with known evolving acute infarct. Persistent sulcal effacement at this level. Partial opacification of the right mastoid air cells is again seen. Correlate to exclu de right-sided mastoiditis. The globes are intact and the visualized sinuses are clear. IMPRESSION: Redemonstration of known evolving acute right sided large cerebellar infarct. Local mass effect is noted with even more prominent effacement of the fourth ventricle but no new hydrocephalus. No new acute intracranial hemorrhage. [facility], , 06/17/2024 11:04 AM
[2024-06-17 11:41] LABS: Glucose,Whole Blood 139 mg/dL (70-110)
[2024-06-17 11:51] VITALS: RESP 17
[2024-06-17 12:41] VITALS: BMI 32.8
[2024-06-17] MEDS: LORazepam 2 MG/ML INJ IV STA (16:00)
--- NOTE | 2024-06-17 16:55 | MR ---
EXAMINATION TYPE: MR brain wo con DATE OF EXAM: 06/17/2024 4:49 PM COMPARISON: MR brain 06/12/2024. CLINICAL INDICATION: Female, 69 years old with history of worsening stroke symptoms, slurred speech t his am; PHH, Worsening stroke symptoms, slurred speech this am TECHNIQUE: Multi planar, multi sequence imaging was performed through the brain including: T1, T2, In version recovery, Diffusion weighted imaging, and gradient echo imaging. No gadolinium was given. FINDINGS: Restricted diffusion within the right cerebellum is not significantly changed from prior . The rahman-white junctions, ventricular system, basal cisterns appear unremarkable. Scattered foci of high T2 signal intensity are seen within the periventricular white matter. Midline structures show n o abnormality. Diffusion-weighted imaging shows no evidence of restricted diffusion. The susceptibili ty weighted images do not reveal any evidence for micro-hemorrhage. The bone marrow signal is within normal limits. Paranasal sinuses and mastoid air cells: No significant paranasal sinus disease. Visualized orbits: Orbital contents are intact. IMPRESSION: 1. Continued evolution of the CVA involving the right cerebellum. Not significantly changed from prio r. No new areas of acute/subacute CVA. 2. Nonspecific white matter changes, likely secondary to small vessel ischemic disease. [facility], , 06/17/2024 4:52 PM
[2024-06-17 17:01] LABS: Glucose,Whole Blood 104 mg/dL (70-110)
[2024-06-17 20:40] LABS: Glucose,Whole Blood 151 mg/dL (70-110)
--- NOTE | 2024-06-17 22:30 | P.DS ---
Providers Date of admission: 06/10/24 12:34 Expected date of discharge: 06/17/24 Attending physician: Ed Tran Consults: 06/10/24 12:32 Consult Physician Routine Consulting Provider: Kyle Ortega Consult Reason/Comments: vertigo Do you want consulting provider notified?: Yes 06/16/24 14:15 Consult Physician Routine Consulting Provider: Jett Cota Consult Reason/Comments: eval for ipr Do you want consulting provider notified?: Yes Primary care physician: Armin Pulliam [facility] Course: Final diagnosis #. Acute/subacute ischemic stroke over the right cerebellar hemisphere with enlargement on repeat imaging requiring neurosurgery evaluation #. Vertigo likely secondary to above #. Right mastoiditis secondary to allergies #. Normocytic anemia #. Hypertension #. GERD #. Depression Obesity with a BMI of 32.8 GI prophylaxis DVT prophylaxis Full code Discharge disposition Patient is being transferred in a stable condition with guarded prognosis to [facility] for neurosurgery evaluation. Patient has been accepted by internal medicine Dr. Dolan with neurosurgeon Dr. Mei on consult in the outpatient setting upon discharge. Total time taken is greater than 35 minutes. Hospital course Patient is a 69-year-old female with a history of hypertension and osteoarthritis presented to the emergency department with constant vertigo for the past several weeks. Patient states that she has never had vertigo before this event. She recently visited her primary care physician and was prescribed with meclizine which she did report some improvement however the vertigo got worse over the past week which made the patient to come to the ED for evaluation. She currently reports a room spinning sensation that would last several minutes and would go away. However vertigo that started this morning has been constant and did not go away. Patient does report some nausea and an episode of vomiting yesterday. Patient also reports some fullness in her right ear. Patient denies fever, chills, chest pain, shortness of breath, belly pain, dysuria, tingling or numbness in her arms or legs, hematochezia or melena. ED documentation reviewed. In the ED patient was treated with Valium 2.5 mg IV x 2, meclizine 50 mg x 1, Reglan 10 mg IV x 1, normal saline at 130 cc an hour, metoprolol tartrate 12.5 mg x 1 Vitals on admission temperature 99.3, pulse rate 113, respiratory rate 16, blood pressure 143/75, O2 sat 98% on room air EKG independently interpreted as sinus rhythm with ventricular rate of 93 bpm, QTc intervals 422 ms, possible left atrial enlargement, possible inferior myocardial infarction, probably old CXR shows no acute cardiopulmonary disease/process CT of brain shows no acute intracranial process. Follow-up MRI can be performed as clinically indicated. Clinical correlation recommended for right mastoiditis . CT angio of head and neck shows no flow-limiting stenosis of bilateral carotid bifurcations. And normal [place]. Labs on admission show WBC 10.3, hemoglobin 9.1, hematocrit 28.2, platelet 335, PT 10.4, INR 0.9, PTT 20.4, sodium 137, potassium 4.4, chloride 109, carbon dioxide 17, BUN 18, creatinine 0.99, glucose 215, troponin less than 0.012" Progress note for 06/12/2024: Patient was seen at bedside today. Reports the vertigo is getting better. However, she still reports right ear fullness. Patient underwent an MRI of brain this morning which showed acute versus subacute CVA involving the right cerebellar hemisphere. Nonspecific white matter changes, likely related to small vessel ischemic disease. Patient denies other complaints at this time. Denies fever, chills, chest pain, shortness of breath, nausea/vomiting, belly pain, dysuria. Progress note for 06/13/2024: Patient was seen at bedside today. She reports feeling better compared to yesterday. Vertigo is still there but has improved since yesterday. Patient will undergo an ESTEFANÍA with Dr. Harrington today. Patient denies other complaints at this time. Denies fever, chills, chest pain, shortness of breath, nausea/vomiting, belly pain, dysuria. Progress note for 06/14/2024: Patient was seen at bedside today. She reports feeling better compared to yesterday. Vertigo is still there but has improved. Transthoracic echo was performed yesterday which showed left ventricular ejection fraction of 55 to 60%. 30-day event monitor has been placed. Transesophageal echocardiogram performed yesterday showed dilated left atrium with normal appearance of the l eft atrial appendage. Normal ventricular size and systolic function. Mild to moderate mitral and tricuspid regurgitation. No shunting across the interatrial septum. Normal appearance of the descending thoracic aorta. Patient denies other acute complaints at this time. PT was not able to work with patient this morning because patient was feeling dizzy. Nurse tried getting the patient up however patient walked 2 steps and began to fall backwards. Patient needs to be reevaluated by PT. 06/15/2024 Patient is seen in follow-up today continues to report some occasional dizziness although has significantly improved from previous. Patient being followed by cardiology along with neurology and awaiting PT/OT therapy. Patient continues to report weakness of the right lower extremity and is showing some improvements on the right upper extremity. Family is concerned as patient would be high risk for falls and recurrent rehospitalization's. Will await PT/OT therapy. Continue current medications and patient will also need an event monitor on discharge per cardiology 06/16/2024 Patient seen in follow-up today continues to report some occasional dizziness although has improved significantly from yesterday. Patient still reports some weakness of the right lower extremity. She reports that the vertigo has largely resolved. Physical therapy determined that the patient is a high fall risk and would benefit from a inpatient rehab at this time. Patient is a good candidate for inpatient rehab and will be able to participate in advanced 3-hour therapy sessions. Denies other acute complaints at this time. Denies fever, chills, chest pain, shortness of, nausea or vomiting. 06/17/2024 Patient reevaluated this morning having speech disturbances and increased right- sided weakness and underwent repeat CT showing redemonstration of known evolving acute right sided large cerebral infarct local mass effect noted even more prominent effacement of the fourth ventricle but no new hydrocephalus or intracranial hemorrhage noted. Neurology recommending MRI of the brain showing worsening restricted diffusion with large area and mild extension medially as well as more extension posterior laterally. Neurology recommending transfer for tertiary treatment with neurosurgery evaluation. Transfer process initiated and patient is agreeable with this transfer. Patient has been accepted by Dr. Dolan with Dr. Mei on consult. Currently awaiting a bed assignment and transfer team will contact the unit Physical exam: Gen: This is a 69-year-old female who is awake, alert and oriented x 3, well- developed, obese HEENT: Head is atraumatic, normocephalic. Pupils equal, round. Sclerae is anicteric. NECK: Supple. No JVD. No lymphadenopathy. No thyromegaly. LUNGS: Clear to auscultation. No wheezes or rhonchi. No intercostal retractions. HEART: Regular rate and rhythm. No murmur. ABDOMEN: Soft. Bowel sounds are present. No masses. No tenderness. EXTREMITIES: No pedal edema. No calf tenderness. Right side upper weakness and ataxia noted NEUROLOGICAL: Patient is awake, alert and oriented x3. Cranial nerves 2 through 12 are grossly intact. Diffusely weak Please refer to medication reconciliation sheet for a list of medications. The impression and plan of care has been dictated by Megan Desai, Nurse Practitioner as directed. Dr. Marc MD I have performed a history and examination and MDM of this patient, discussed the same with the dictator, and agree with the dictator's assessment and plan as written ,documented as a scribe. Based on total visit time, I have performed more than 50% of the visit. Patient Condition at Discharge: Fair Plan - Discharge Summary New Discharge Prescriptions: New Aspirin 81 mg PO DAILY 30 Days #30 tab Atorvastatin [Lipitor] 40 mg PO HS 30 Days #30 tablet Clopidogrel [Plavix] 75 mg PO DAILY 20 Days #20 tablet No Action amLODIPine [Norvasc] 10 mg PO DAILY buPROPion XL [Wellbutrin XL] 300 mg PO DAILY Pantoprazole [Protonix] 40 mg PO DAILY Meclizine [Antivert] 25 mg PO TID Escitalopram [Lexapro] 20 mg PO DAILY QUEtiapine FUMARATE [SEROquel] 300 mg PO HS Discharge Medication List Escitalopram [Lexapro] 20 mg PO DAILY 06/10/24 [History] Meclizine [Antivert] 25 mg PO TID 06/10/24 [History] Pantoprazole [Protonix] 40 mg PO DAILY 06/10/24 [History] QUEtiapine FUMARATE [SEROquel] 300 mg PO HS 06/10/24 [History] amLODIPine [Norvasc] 10 mg PO DAILY 06/10/24 [History] buPROPion XL [Wellbutrin XL] 300 mg PO DAILY 06/10/24 [History] Aspirin 81 mg PO DAILY 30 Days #30 tab 06/13/24 [Rx] Atorvastatin [Lipitor] 40 mg PO HS 30 Days #30 tablet 06/13/24 [Rx] Clopidogrel [Plavix] 75 mg PO DAILY 20 Days #20 tablet 06/13/24 [Rx] Follow up Appointment(s)/Referral(s): Last Harrington MD [STAFF PHYSICIAN] - 2 Weeks Armin Pulliam DO [Primary Care Provider] - 3 Days None,Stated [REFERRING] - 1-2 days Activity/Diet/Wound Care/Special Instructions: Patient being transferred to [facility] and admitted to medicine Dr. Lara Mei (neurosurgery on consult) Discharge Disposition: OTHER INSTITUTION NOT DEFINED
[2024-06-17 23:01] VITALS: BP 122/67; PULSE 92; TEMP 97.8
--- NOTE | 2024-06-18 09:34 | P.PN ---
Subjective Progress Note Date: 06/17/24 Patient was initially seen by Dr. Kyle Ortega. Please refer to his note for details. Patient is a 69-year-old right-handed female with acute right cerebellar stroke. Patient had a ESTEFANÍA, which did not reveal any embolic source. Patient is on aspirin and Plavix. Patient was signed off by Dr. Ortega, as per his signout sheet. However neurology was reconsulted today. At 9:24 AM, it was reported that speech therapy saw the patient and had some left upper labial asymmetry, left lingual deviation and mild dysarthria this morning. Per patient, pointed out to the speech therapist that "she sounded drunk" and has not sounded like this. Stat CT head was ordered. It revealed redemonstration of known evolving acute right-sided large cerebellar infarct. Local mass effect is noted with even more prominent effacement of the fourth ventricle but no new hydrocephalus. No new acute intracranial hemorrhage. I personally reviewed CT head, agree with the findings. I came over to see the patient. She states that patient is having blurred vision since her stroke. Today she walked to the door with the therapist. Her right side continues to be very ataxic. She denies any headache at this time. She gets nauseous if she stands up too long, and she has to sit down right away. If she moves her head, feels nauseous. If she keeps her head still, she is okay. Denies any numbness or tingling. Continues to have right-sided weakness. She agrees that for last 2 to 3 days, she is talking a little slurred. Her left facial droopiness is also new. Some of the workup during this hospital visit consisted of: CT of the head is reported as no acute intracranial process. Clinical correlation recommended for right mastoiditis. I personally reviewed the CT and there is no acute or subacute process. CT angiography of the head and neck is reported as no flow-limiting stenosis bilateral carotid bifurcation. Normal [place] [facility] [place]. MRI of the brain is reported as acute versus subacute CVA involving the right cerebellar hemisphere. Objective - Vital Signs Vital signs: Vital Signs Temp 98.1 F 06/17/24 11:50 Pulse 86 06/17/24 11:50 Resp 17 06/17/24 11:50 BP 133/77 06/17/24 11:50 Pulse Ox 99 06/17/24 11:50 FiO2 Intake & Output 06/16/24 06/17/24 06/17/24 18:59 06:59 18:59 Intake Total 550 405 Output Total 200 Balance 350 405 Weight 81.4 kg Intake: Oral 550 405 Output: Urine 200 Other: Voiding Method Bedside Commode Bedside Commode Bedside Commode # Voids 2 1 - Exam Patient is completely normal. Speech is mildly dysarthric, no aphasia. Patient can name and repeat. On cranial nerve examination, patient has decreased left nasolabial fold. Visual hernández are full. Tongue protrudes to midline. Extraocular muscles are intact. Pupils are equal, round and reacting. On muscle strength testing, patient has right pronation with no drift. The strength is normal in the arms and legs. Sensory to touch is equal. Patient has ataxia of the right upper extremity and right lower extremity, at least moderate. - Labs CBC & Chem 7: 06/16/24 05:18 06/17/24 09:08 Labs: Abnormal Lab Results - Last 24 Hours (Table) 06/16/24 06/16/24 06/17/24 Range/Units 16:06 19:48 05:53 Sodium (137-145) mmol/L Creatinine (0.52-1.04) mg/dL Glucose (74-99) mg/dL POC Glucose (mg/dL) 121 H 149 H 159 H (70-110) mg/dL 06/17/24 06/17/24 Range/Units 09:08 11:39 Sodium 135 L (137-145) mmol/L Creatinine 1.12 H (0.52-1.04) mg/dL Glucose 139 H (74-99) mg/dL POC Glucose (mg/dL) 139 H (70-110) mg/dL Assessment and Plan Assessment: This is a 69-year-old woman who having dizziness with nausea vomiting since 05/27/2024 and was prescribed meclizine by her PCP but seems that she got worse on 06/10/2024 Acute subacute ischemic stroke over the right cerebellar patient has acute vertigo with unsteady gait since 05/27/2025. On examination patient has ataxia with [id number] as well as heel to ch on the right--clinically feels better. Unknown exact etiology of her stroke. Her risk factors are hypertension, age and sex. Recent worsening of symptoms, rule out stroke extension versus cerebellar hemorrhage. Hypertension History of bipolar Marijuana use Plan: Repeat CT head performed today revealed redemonstration of known evolving acute right-sided large cerebellar infarct. Local mass effect is noted with even more prominent effacement of the fourth ventricle but no new hydrocephalus. No new acute intracranial hemorrhage. I personally reviewed CT head, agree with the findings. Suspect slight stroke extension. Stat MRI of the brain 2D echo revealed technically difficult study. Normal left ventricular size and systolic function with EF 55 to 60%. No obvious regional wall motion abnormalities. Normal left atrial size. Normal right atrial size. No valvular abnormalities. Transesophageal echocardiogram revealed dilated left atrium with normal appearance of the left atrial appendage. Normal ventricular size and systolic function. Mild to moderate mitral and tricuspid regurgitation. No shunting across the interatrial septum. Normal appearance of the descending thoracic aorta. Lipid panel still pending, TSH still pending. Patient started on Lipitor 40 mg daily in this admission. Hemoglobin A1c 6.3 She is currently on ASA 81mg daily and Plavix 75mg daily (prior to this admission was not on antiplatelets). As per Dr. Ortega, recommend dual antiplatelet for 21 days and after 21 days stop Plavix but continue aspirin indefinitely. Recommend 30-day event monitor. Continue meclizine 25 mg 1 tablet 4 times daily scheduled Continue Zofran 4 mg every 6 hours as needed for the nausea vomiting Continue neurochecks PT and OT are consulted Will defer the rest of the medical management to primary other specialist DVT prophylaxis On subcu heparin 5000 units every 12 hours On discharge recommend the patient to follow-up with a neurologist as an outpatient within 2 weeks Addendum: MRI of the brain revealed continued evolution of the CVA involving the right cerebellum. Not significantly changed from prior. No new areas of acute/subacute CVA. Nonspecific white matter changes, likely secondary to small vessel ischemic disease. I personally reviewed MRI, and it appeared that the stroke has extended particularly involving the vermis of the cerebellum. I reviewed MRI of the brain with the radiologist Dr. Swenson, who agreed. It appears there is worsening restricted diffusion with larger area and mild extension medially in the vermis, as well as more extension posterior laterally. Came back to see the patient, informed the results of MRI and for possible transfer. Patient's and patient agreed. Discussed with neurointervention Dr. Rowe, who agreed patient needs close supervision, and may need neurosurgical intervention. Therefore patient will be transferred to [facility] for higher level of care with neurosurgical consultation and observation. Informed primary team, and nursing staff about potential transfer. Time with Patient: Greater than 30
--- NOTE | 2024-06-23 10:29 | CDI ---
Documentation Clarification Form Date: 06/23/2024 09:26:22 AM From: Jacqueline Delatorre RN, CCDS Email: [email or web address] Admit Date: 06/10/2024 12:34:00 PM Patient Name: Katarina Burris Visit Number: [id number] Discharge Date: 06/18/2024 12:45:00 AM ATTENTION: The Clinical Documentation Specialists (CDI) and [facility] Coding Staff appreciate your assistance in clarifying documentation. Please respond to the clarification below the line at the bottom and electronically sign. The CDI & [facility] Coding staff will review the response and follow-up if needed. Please note: Queries are made part of the Legal Health Record. If you have any questions, please contact the author of this message via ITS. Doctor dE Tran The patient had local mass effect noted on CT scan. Based on this information and the findings below, is there an additional diagnosis that is clinically appropriate for this patient? Patient history/risk factors: HTN, obesity, GERD and osteoarthritis. Presented with complaints of vertigo for the past several weeks. Admitted with acute/subacute ischemic stroke. Clinical Indicators: 06/12 Brain MRI: Acute versus subacute CVA involving the right cerebellar hemisphere 06/[address]: Redemonstration of known evolving acute right sided large cerebellar infarct. Local mass effect is noted with even more prominent effacement of the fourth ventricle but no new hydrocephalus. No new acute intracranial hemorrhage. 06/17 Neurology: "Local mass effect is noted with even more prominent effacement of the fourth ventricle but no new hydrocephalus. Suspect slight stroke extension" 06/17 Discharge summary: "Patient reevaluated this morning having speech disturbances and increased right-sided weakness and underwent repeat CT showing redemonstration of known evolving acute right sided large cerebral infarct. Local mass effect noted even more prominent effacement of the fourth ventricle but no new hydrocephalus or intracranial hemorrhage noted. Neurology recommends transfer for tertiary treatment with neurosurgery evaluation." Treatment: Neurology consult - see above; Transfer to tertiary care for Neurosurgery evaluation; PT/OT therapy Is there an additional diagnosis that is clinically appropriate for this patient? [ ] Mass effect causing brain compression [ ] Mass effect not clinical significant [ ] No additional diagnosis/not clinically significant [ ] Unable to determine [ ] Other, please specify Mass effect causing brain compression MTDD
== END 2024-06-18 00:45 | DRG 64 ==
LOC: EC 10:13 → 6NMEDSUR 12:33 → OBSVTOIN 12:34 → 6NMEDSUR 17:15 → 3SCARD 06-12 12:39
PROVIDERS: ADMIT Hospitalist; ATTEND Hospitalist
DX: I63.541 Cerebral infarction due to unspecified occlusion or stenosis of right cerebellar artery (principal); G93.5 Compression of brain; G81.91 Hemiplegia, unspecified affecting right dominant side; H70.91 Unspecified mastoiditis, right ear; E66.9 Obesity, unspecified; F31.9 Bipolar disorder, unspecified; I10 Essential (primary) hypertension; D64.9 Anemia, unspecified; R42 Dizziness and giddiness; Z68.32 Body mass index [BMI] 32.0-32.9, adult; K21.9 Gastro-esophageal reflux disease without esophagitis; H53.2 Diplopia; Z79.02 Long term (current) use of antithrombotics/antiplatelets; Z79.82 Long term (current) use of aspirin; Z79.899 Other long term (current) drug therapy; Z86.73 Personal history of transient ischemic attack (TIA), and cerebral infarction without residual deficits; Z87.891 Personal history of nicotine dependence
CPT/HCPCS: 36415; 51798; 70450; 70496; 70498; 70551; 70553; 71046; 80048; 80053; 80061; 82550; 83036; 84443; 84484; 85025; 85610; 85730; 93005; 93270; 93306; 93312; 93320; 93325; 94760; 96361; 96374; 96375; 96376; 99285

== ENCOUNTER → 2024-09-29 | Outpatient (CLI) | payer MEDICARE ==
--- NOTE | 2024-09-29 14:13 | CT ---
EXAMINATION TYPE: CT brain wo con DATE OF EXAM: 09/29/2024 2:02 PM COMPARISON: CT and MRI 06/17/2024 CLINICAL INDICATION: Female, 69 years old with history of R47.81 SLURRED SPEECH, weakness, slurred sp eech TECHNIQUE: CT of the brain is performed utilizing 3 mm thick sections through the posterior fossa and 3 mm thick sections through the remaining calvarium. Study is performed within 24 hours of arrival to the hospital. Contrast used: mL of , (none if empty) CT DLP: 1248 mGycm, Automated exposure control for dose reduction was used. FINDINGS: No abnormal hyperdensity is present to suggest an acute intracranial hemorrhage. No mass lesion is evident. No acute infarcts are evident. There is an old inferior right cerebellar infarct. Mild periventricula r white matter ischemic-type changes may be present that are visualized on the MRI. No mass effect. Ventricles and sulci are appropriate for the patient age. Paranasal sinuses and mastoid air cells within the [id number] are clear. IMPRESSION: 1. No acute intracranial process. Follow up MRI can be performed as clinically indicated. 2. Mild chronic appearing periventricular white matter ischemic changes. 3. Old right inferior cerebellar infarct [facility], Workstation: [facility], 09/29/2024 2:11 PM
== END | disposition home or self-care (01) ==
LOC: RADCTMAIN 13:22
PROVIDERS: ATTEND Family Medicine
DX: I67.82 Cerebral ischemia (principal); R47.81 Slurred speech; Z86.73 Personal history of transient ischemic attack (TIA), and cerebral infarction without residual deficits
CPT/HCPCS: 70450

== ENCOUNTER 2024-10-11 10:10 | Emergency (ER) | payer MEDICARE ==
--- NOTE | 2024-10-11 10:42 | ED ---
General Adult HPI - General Chief complaint: Recheck/Abnormal Lab/Rx Stated complaint: abn labs Time Seen by Provider: 10/11/24 10:15 Source: patient, RN notes reviewed, old records reviewed Mode of arrival: ambulatory Limitations: no limitations - History of Present Illness Initial comments: This is a 69-year-old female who presents to the emergency department stating that her hemoglobin has been low and she is scheduled for an endoscopy this upcoming week. Patient states the office repeated her blood work and she had a hemoglobin 6.6 so she came in today to get a unit of blood. Patient states she has been short of breath and weak lately but that has been ongoing for a little while. Patient denies any chest pain. Patient denies shortness of breath. Patient denies any black or bloody stools. - Related Data Home Medications Medication Instructions Recorded Confirmed Escitalopram [Lexapro] 20 mg PO DAILY 06/10/24 08/20/24 Pantoprazole [Protonix] 40 mg PO DAILY 06/10/24 08/20/24 QUEtiapine FUMARATE [SEROquel] 300 mg PO HS 06/10/24 08/20/24 amLODIPine [Norvasc] 10 mg PO DAILY 06/10/24 08/20/24 buPROPion XL [Wellbutrin XL] 300 mg PO DAILY 06/10/24 08/20/24 Ferrous Sulfate [Feosol] 325 mg PO DAILY 08/20/24 08/20/24 lisinopriL [Zestril] 20 mg PO DAILY 08/20/24 08/20/24 Previous Rx's Medication Instructions Recorded Aspirin 81 mg PO DAILY 30 Days #30 tab 06/13/24 Atorvastatin [Lipitor] 40 mg PO HS 30 Days #30 tablet 06/13/24 Clopidogrel [Plavix] 75 mg PO DAILY 20 Days #20 tablet 06/13/24 Allergies Allergy/AdvReac Type Severity Reaction Status Date / Time ampicillin Allergy Severe LOWERED Verified 08/20/24 17:09 IMMUNE SYSTEM Review of Systems ROS Statement: Those systems with pertinent positive or pertinent negative responses have been documented in the HPI. ROS Other: All systems not noted in ROS Statement are negative. Past Medical History Past Medical History: Atrial Fibrillation, CVA/TIA, Eye Disorder, Hypertension, Osteoarthritis (OA) Additional Past Medical History / Comment(s): GLAUCOMA. MILD OA. cva 06/27/23 legs coming back, rt arm still not back to normal. History of Any Multi-Drug Resistant Organisms: None Reported Past Surgical History: Section, Cholecystectomy, Hysterectomy Additional Past Surgical History / Comment(s): loop recorder? for a fib, Past Anesthesia/Blood Transfusion Reactions: Motion Sickness Past Psychological History: Bipolar Smoking Status: Former smoker - Past Family History Mother Family Medical History: No Reported History General Exam - General Exam Comments Initial Comments: GENERAL: Patient is well-developed and well-nourished. Patient is nontoxic and well- hydrated and is in no acute distress. ENT: Neck is soft and supple. No significant lymphadenopathy is noted. Oropharynx is clear. Moist mucous membranes. Neck has full range of motion without eliciting any pain. EYES: The sclera were anicteric and conjunctiva were pink and moist. Extraocular movements were intact and pupils were equal round and reactive to light. Eyelids were unremarkable. PULMONARY: Unlabored respirations. Good breath sounds bilaterally. No audible rales rhonchi or wheezing was noted. CARDIOVASCULAR: There is a regular rate and rhythm without any murmurs gallops or rubs. ABDOMEN: Soft and nontender with normal bowel sounds. SKIN: Skin is clear with no lesions or rashes and otherwise unremarkable. NEUROLOGIC: Patient is alert and oriented x3. Cranial nerves II through XII are grossly intact. Motor and sensory are also intact. Normal speech, volume and content. Symmetrical smile. MUSCULOSKELETAL: Normal extremities with adequate strength and full range of motion. LYMPHATICS: No significant lymphadenopathy is noted PSYCHIATRIC: Normal psychiatric evaluation. Limitations: no limitations Course Vital Signs 10/11/24 10/11/24 10/11/24 10:15 13:02 13:12 Temperature 97.8 F 98.3 F 98.0 F Pulse Rate 92 72 72 Respiratory 16 18 18 Rate Blood Pressure 109/62 102/65 117/69 O2 Sat by Pulse 99 97 Oximetry 10/11/24 13:32 Temperature 97.9 F Pulse Rate 71 Respiratory 18 Rate Blood Pressure 109/65 O2 Sat by Pulse 98 Oximetry Medical Decision Making - Medical Decision Making Was pt. sent in by a medical professional or institution (, PA, VENTILATOR SPECIALIST, urgent care, hospital, or shelter...) When possible be specific @ -No Did you speak to anyone other than the patient for history (EMS, parent, family, police, friend...)? What history was obtained from this source @ -No Did you review nursing and triage notes (agree or disagree)? Why? @ -I reviewed and agree with nursing and triage notes Were old charts reviewed (outside hosp., previous admission, EMS record, old EKG, old radiological studies, urgent care reports/EKG's, shelter records)? Report findings @ -No old charts were reviewed Differential Diagnosis? @ -Differential Weakness: Hypoglycemia, shock, sepsis, hyponatremia, anemia, infection, [place], ETOH, adverse medicine reaction, overdose, stroke, this is not meant to be an all-inclusive list. EKG interpreted by me (3pts min.). @ -As above X-rays interpreted by me (1pt min.). @ -None done CT interpreted by me (1pt min.). @ -None done U/S interpreted by me (1pt. min.). @ -None done What testing was considered but not performed or refused? (CT, X-rays, U/S, labs)? Why? @ -None What meds were considered but not given or refused? Why? @ -None Did you discuss the management of the patient with other professionals (adia baptiste i.e. , PA, VENTILATOR SPECIALIST, lab, RT, psych nurse, social studies department chair, paint roller cover machine setter, teacher, corporate trust officer, case filler)? Give summary @ -No Was smoking cessation discussed for >3mins.? @ -No Was critical care preformed (if so, how long)? @ -No Were there social determinants of health that impacted care today? How? (Homelessness, low income, unemployed, alcoholism, drug addiction, transportation, low edu. Level, literacy, decrease access to med. care, long-term, rehab)? @ -No Was there de-escalation of care discussed even if they declined (Discuss DNR or withdrawal of care, Hospice)? DNR status @ -No What co-morbidities impacted this encounter? (DM, HTN, Smoking, COPD, CAD, Cancer, CVA, ARF, Chemo, Hep., AIDS, mental health diagnosis, sleep apnea, morbid obesity)? @ -None Was patient admitted / discharged? Hospital course, mention meds given and route, prescriptions, significant lab abnormalities, going to OR and other pertinent info. @ -The patient received 1 unit of packed red blood cells because her hemoglobin 6.5 back in May was 9.2. Patient has an appointment on Sunday to follow-up with Dr. Medley for scope. I will give the patient a prescription for repeat CBC on Sunday at this hospital Undiagnosed new problem with uncertain prognosis? @ -No Drug Therapy requiring intensive monitoring for toxicity (Heparin, Nitro, Insulin, Cardizem)? @ -No Were any procedures done? @ -No Diagnosis/symptom? @ -Anemia Acute, or Chronic, or Acute on Chronic? @ -Acute on chronic Uncomplicated (without systemic symptoms) or Complicated (systemic symptoms)? @ -Complicated Side effects of treatment? @ -No Exacerbation, Progression, or Severe Exacerbation? @ -No Poses a threat to life or bodily function? How? (Chest pain, [place], [place], pneumonia, PE, COPD, DKA, ARF, appy, cholecystitis, CVA, Diverticulitis, Homicidal, Suicidal, threat to staff... and all critical care pts) @ -No - Lab Data Result diagrams: 10/11/24 10:20 10/11/24 10:20 Lab Results 10/11/24 10/11/24 10/11/24 Range/Units 10:20 10:20 10:20 WBC 6.38 (4.50-10.00) 10*3/uL RBC 2.28 L (4.10-5.20) 10*6/uL Hgb 6.5 L* (12.0-15.0) g/dL Hct 21.2 L (37.2-46.3) % MCV 93.0 (80.0-97.0) fL MCH 28.5 (27.0-32.0) pg MCHC 30.7 L (32.0-37.0) g/dL Plt Count 400 (140-440) 10*3/uL MPV 9.4 L (9.5-12.2) fL Immature Gran % (Auto) 0.3 % Neutrophils % 71.0 % Lymphocytes % 19.9 % Monocytes % 6.6 % Eosinophils % 1.6 % Basophils % 0.6 % Immature Gran # 0.02 (0.00-0.04) 10*3/uL Neutrophils # 4.53 (1.80-7.70) 10*3/uL Lymphocytes # 1.27 (0.90-5.00) 10*3/uL Monocytes # 0.42 (0.20-1.00) 10*3/uL Eosinophils # 0.10 (0.04-0.35) 10*3/uL Basophils # 0.04 (0.00-0.10) 10*3/uL Sodium 138 (137-145) mmol/L Potassium 4.9 (3.5-5.1) mmol/L Chloride 106 (98-107) mmol/L Carbon Dioxide 20 L (22-30) mmol/L Anion Gap 12 mmol/L BUN 20 H (7-17) mg/dL Creatinine 1.26 H (0.52-1.04) mg/dL Est GFR (CKD-EPI)AfAm 51 (>60 ml/min/1.73 sqM) Est GFR (CKD-EPI)NonAf 44 (>60 ml/min/1.73 sqM) Glucose 136 H (74-99) mg/dL Lactic Ac Sepsis Rflx Plasma Lactic Acid Tereso 2.6 H* (0.7-2.0) mmol/L Calcium 10.2 (8.4-10.2) mg/dL Magnesium 2.1 (1.6-2.3) mg/dL Total Bilirubin 0.5 (0.2-1.3) mg/dL AST 18 (14-36) U/L ALT 14 (4-34) U/L Alkaline Phosphatase 90 (38-126) U/L Troponin I (0.000-0.034) ng/mL Total Protein 7.0 (6.3-8.2) g/dL Albumin 4.4 (3.5-5.0) g/dL Blood Type Blood Type Confirm Blood Type Recheck Bld Type Recheck Status Antibody Screen Crossmatch Spec Expiration Date 10/11/24 10/11/24 10/11/24 Range/Units 10:20 10:20 10:35 WBC (4.50-10.00) 10*3/uL RBC (4.10-5.20) 10*6/uL Hgb (12.0-15.0) g/dL Hct (37.2-46.3) % MCV (80.0-97.0) fL MCH (27.0-32.0) pg MCHC (32.0-37.0) g/dL Plt Count (140-440) 10*3/uL MPV (9.5-12.2) fL Immature Gran % (Auto) % Neutrophils % % Lymphocytes % % Monocytes % % Eosinophils % % Basophils % % Immature Gran # (0.00-0.04) 10*3/uL Neutrophils # (1.80-7.70) 10*3/uL Lymphocytes # (0.90-5.00) 10*3/uL Monocytes # (0.20-1.00) 10*3/uL Eosinophils # (0.04-0.35) 10*3/uL Basophils # (0.00-0.10) 10*3/uL Sodium (137-145) mmol/L Potassium (3.5-5.1) mmol/L Chloride (98-107) mmol/L Carbon Dioxide (22-30) mmol/L Anion Gap mmol/L BUN (7-17) mg/dL Creatinine (0.52-1.04) mg/dL Est GFR (CKD-EPI)AfAm (>60 ml/min/1.73 sqM) Est GFR (CKD-EPI)NonAf (>60 ml/min/1.73 sqM) Glucose (74-99) mg/dL Lactic Ac Sepsis Rflx Plasma Lactic Acid Tereso (0.7-2.0) mmol/L Calcium (8.4-10.2) mg/dL Magnesium (1.6-2.3) mg/dL Total Bilirubin (0.2-1.3) mg/dL AST (14-36) U/L ALT (4-34) U/L Alkaline Phosphatase (38-126) U/L Troponin I <0.012 (0.000-0.034) ng/mL Total Protein (6.3-8.2) g/dL Albumin (3.5-5.0) g/dL Blood Type AB Negative Blood Type Confirm AB Negative Blood Type Recheck No Previous Record Bld Type Recheck Status CABO Indicated Antibody Screen NEGATIVE Crossmatch See Detail Spec Expiration Date 10/14/2024 - 231910/11/24 Range/Units 11:14 WBC (4.50-10.00) 10*3/uL RBC (4.10-5.20) 10*6/uL Hgb (12.0-15.0) g/dL Hct (37.2-46.3) % MCV (80.0-97.0) fL MCH (27.0-32.0) pg MCHC (32.0-37.0) g/dL Plt Count (140-440) 10*3/uL MPV (9.5-12.2) fL Immature Gran % (Auto) % Neutrophils % % Lymphocytes % % Monocytes % % Eosinophils % % Basophils % % Immature Gran # (0.00-0.04) 10*3/uL Neutrophils # (1.80-7.70) 10*3/uL Lymphocytes # (0.90-5.00) 10*3/uL Monocytes # (0.20-1.00) 10*3/uL Eosinophils # (0.04-0.35) 10*3/uL Basophils # (0.00-0.10) 10*3/uL Sodium (137-145) mmol/L Potassium (3.5-5.1) mmol/L Chloride (98-107) mmol/L Carbon Dioxide (22-30) mmol/L Anion Gap mmol/L BUN (7-17) mg/dL Creatinine (0.52-1.04) mg/dL Est GFR (CKD-EPI)AfAm (>60 ml/min/1.73 sqM) Est GFR (CKD-EPI)NonAf (>60 ml/min/1.73 sqM) Glucose (74-99) mg/dL Lactic Ac Sepsis Rflx Y Plasma Lactic Acid Tereso (0.7-2.0) mmol/L Calcium (8.4-10.2) mg/dL Magnesium (1.6-2.3) mg/dL Total Bilirubin (0.2-1.3) mg/dL AST (14-36) U/L ALT (4-34) U/L Alkaline Phosphatase (38-126) U/L Troponin I (0.000-0.034) ng/mL Total Protein (6.3-8.2) g/dL Albumin (3.5-5.0) g/dL Blood Type Blood Type Confirm Blood Type Recheck Bld Type Recheck Status Antibody Screen Crossmatch Spec Expiration Date Disposition Clinical Impression: Anemia, Encounter for blood transfusion Disposition: HOME SELF-CARE Condition: Good Additional Instructions: Patient should follow-up with Dr. Tumma as previously scheduled. Patient should have her blood drawn on Sunday and results will go to Dr. Ferrer. Patient should return if she is feeling weak or short of breath lightheaded or having chest pain. Is patient prescribed a controlled substance at d/c from ED?: No Referrals: Armin Pulliam DO [Primary Care Provider] - 1-2 days Time of Disposition: 14:00
[2024-10-11 11:05] LABS: Basophils # (A) 0.04 10*3/uL (0.00-0.10); Basophils % (A) 0.6 %; Eosinophils % (A) 1.6 %; HCT 21.2 % (37.2-46.3); Lymphocytes # (A) 1.27 10*3/uL (0.90-5.00); Lymphocytes % (A) 19.9 %; MCH 28.5 pg (27.0-32.0); MCHC 30.7 g/dL (32.0-37.0); Mean Platelet Volume 9.4 fL (9.5-12.2); Monocytes # (A) 0.42 10*3/uL (0.20-1.00); Monocytes % (A) 6.6 %; Neutrophils # (A) 4.53 10*3/uL (1.80-7.70); Platelet Count 400 10*3/uL (140-440); RBC 2.28 10*6/uL (4.10-5.20); RDW 13.2 % (11.5-14.5); WBC 6.38 10*3/uL (4.50-10.00)
[2024-10-11 11:12] LABS: ALT 14 U/L (4-34); AST 18 U/L (14-36); African American GFR (CKD) 51 (>60 ml/min/1.73 sqM); Albumin 4.4 g/dL (3.5-5.0); Alkaline Phosphatase 90 U/L (38-126); Anion Gap 12 mmol/L; Blood Urea Nitrogen 20 mg/dL (7-17); Calcium 10.2 mg/dL (8.4-10.2); Carbon Dioxide 20 mmol/L (22-30); Chloride 106 mmol/L (98-107); Glucose 136 mg/dL (74-99); Magnesium 2.1 mg/dL (1.6-2.3); Non-African American GFR(CKD) 44 (>60 ml/min/1.73 sqM); Potassium 4.9 mmol/L (3.5-5.1); Sodium 138 mmol/L (137-145); Total Bilirubin 0.5 mg/dL (0.2-1.3)
[2024-10-11 11:18] LABS: HGB 6.5 g/dL (12.0-15.0)
[2024-10-11 13:03] VITALS: RESP 18
[2024-10-11 15:03] VITALS: TEMP 98.2
[2024-10-11 15:49] VITALS: BP 146/66; PULSE 73
== END 2024-10-11 15:50 | disposition home or self-care (01) ==
LOC: EC 10:10
DX: D64.9 Anemia, unspecified (principal); Z88.0 Allergy status to penicillin; Z87.891 Personal history of nicotine dependence; Z86.73 Personal history of transient ischemic attack (TIA), and cerebral infarction without residual deficits
CPT/HCPCS: 36415; 86900; 86901; 80053; 83605; 83735; 84484; 85025; 86850; 86920; 99284; 36430; P9016

== ENCOUNTER → 2024-10-13 | Outpatient (CLI) | payer MEDICARE ==
[2024-10-13 16:39] LABS: HCT 25.3 % (37.2-46.3); HGB 7.4 g/dL (12.0-15.0); MCH 27.7 pg (27.0-32.0); MCHC 29.2 g/dL (32.0-37.0); MCV 94.8 FL (80.0-97.0); NRBC Per 100 WBC 0.02 X 10*3/uL (0.00-0.01); Platelet Count 395 X 10*3/uL (140-440); RBC 2.67 X 10*6/uL (4.10-5.20); RDW 14.1 % (11.5-14.5); WBC 7.62 X 10*3/uL (4.50-10.00)
== END | disposition home or self-care (01) ==
LOC: LABWHC1 09:13
PROVIDERS: ATTEND Emergency Medicine
DX: Z53.9 Procedure and treatment not carried out, unspecified reason (principal)
CPT/HCPCS: 36415; 85027

== ENCOUNTER → 2024-11-12 | Outpatient (CLI) | payer MEDICARE ==
[2024-11-12 18:19] LABS: Basophils # (A) 0.05 X 10*3/uL (0.00-0.10); Basophils % (A) 0.6 %; Eosinophils # (A) 0.16 X 10*3/uL (0.04-0.35); Eosinophils % (A) 1.8 %; HCT 36.2 % (37.2-46.3); HGB 10.9 g/dL (12.0-15.0); Lymphocytes # (A) 1.72 X 10*3/uL (0.90-5.00); Lymphocytes % (A) 19.2 %; MCH 27.9 pg (27.0-32.0); MCHC 30.1 g/dL (32.0-37.0); MCV 92.6 FL (80.0-97.0); Mean Platelet Volume 10.1 FL (9.5-12.2); Monocytes # (A) 0.56 X 10*3/uL (0.20-1.00); Monocytes % (A) 6.3 %; NRBC Per 100 WBC 0 X 10*3/uL (0.00-0.01); Neutrophils # (A) 6.42 X 10*3/uL (1.80-7.70); Neutrophils % (A) 71.7 %; Platelet Count 315 X 10*3/uL (140-440); RBC 3.91 X 10*6/uL (4.10-5.20); WBC 8.95 X 10*3/uL (4.50-10.00)
== END | disposition home or self-care (01) ==
LOC: LABWHC1 15:37
PROVIDERS: ATTEND Internal Medicine Gastroenterology
DX: D50.0 Iron deficiency anemia secondary to blood loss (chronic) (principal)
CPT/HCPCS: 36415; 85025

== ENCOUNTER 2024-12-22 08:34 | Inpatient (IN) | payer MEDICARE ==
[2024-12-22] MEDS: MECLIZINE 12.5 MG TAB PO STA (09:22)
[2024-12-22] MEDS: SODIUM CHLORIDE 0.9% 500 ML 500 ML IV STA (09:25)
[2024-12-22 09:41] LABS: Basophils # (A) 0.03 10*3/uL (0.00-0.10); Basophils % (A) 0.5 %; Eosinophils # (A) 0.15 10*3/uL (0.04-0.35); Eosinophils % (A) 2.7 %; HCT 22.0 % (37.2-46.3); Lymphocytes # (A) 0.81 10*3/uL (0.90-5.00); Lymphocytes % (A) 14.7 %; MCH 30.1 pg (27.0-32.0); MCHC 30.9 g/dL (32.0-37.0); Monocytes # (A) 0.40 10*3/uL (0.20-1.00); Monocytes % (A) 7.3 %; Neutrophils # (A) 4.09 10*3/uL (1.80-7.70); Neutrophils % (A) 74.4 %; Platelet Count 354 10*3/uL (140-440); RBC 2.26 10*6/uL (4.10-5.20); RDW 18.1 % (11.5-14.5); WBC 5.50 10*3/uL (4.50-10.00)
[2024-12-22 09:44] LABS: ALT 13 U/L (4-34); AST 16 U/L (14-36); African American GFR (CKD) 50 (>60 ml/min/1.73 sqM); Albumin 4.2 g/dL (3.5-5.0); Alkaline Phosphatase 109 U/L (38-126); Anion Gap 9 mmol/L; Blood Urea Nitrogen 19 mg/dL (7-17); Calcium 9.7 mg/dL (8.4-10.2); Carbon Dioxide 22 mmol/L (22-30); Chloride 107 mmol/L (98-107); Glucose 147 mg/dL (74-99); Magnesium 1.9 mg/dL (1.6-2.3); Non-African American GFR(CKD) 44 (>60 ml/min/1.73 sqM); Potassium 4.0 mmol/L (3.5-5.1); Sodium 138 mmol/L (137-145); Total Protein 6.7 g/dL (6.3-8.2)
[2024-12-22 09:46] LABS: HGB 6.8 g/dL (12.0-15.0); MCV 97.3 fL (80.0-97.0)
--- NOTE | 2024-12-22 10:03 | CT ---
EXAMINATION TYPE: CT brain wo con CT DLP: 1172.4 mGycm, Automated exposure control for dose reduction was used. DATE OF EXAM: 12/22/2024 9:49 AM COMPARISON: CT brain 09/29/2024, 06/17/2024, 06/10/2024, MR brain 06/17/2024, 06/12/2024 CLINICAL INDICATION:Female, 69 years old with history of dizziness, Hx CVA, dizziness, Hx CVA TECHNIQUE: Brain: Multiple axial CT images of the brain were obtained without IV contrast. . Coronal and sagitta l reformats reviewed. FINDINGS: Brain: Extra-axial spaces: No abnormal extra-axial fluid collections. Ventricular system: Within normal limits Cerebral parenchyma: Cerebral atrophy. No acute intraparenchymal hemorrhage or mass effect. The rahman -white junction is well differentiated. Scattered hypoattenuating areas are seen within the periventr icular white matter. Cerebellum: Remote right cerebellar ischemic injury. Mass effect: No evidence of midline shift. Intracranial vasculature: Atherosclerotic calcifications of the intracranial vessels. Soft tissues: Normal. Calvarium/osseous structures: No depressed skull fracture. Paranasal sinuses and mastoid air cells: Mastoid air cells are clear. Subcentimeter probable osteoma within the left ethmoid sinus. The remaining paranasal sinuses are clear. Visualized orbits: Orbital contents are intact. IMPRESSION: 1. No acute intracranial process. 2. Nonspecific mild white matter changes, likely secondary to chronic small vessel ischemic disease. 3. Remote right cerebellar ischemic injury. [facility], , 12/22/2024 10:00 AM
[2024-12-22] MEDS ORDERED: ACETAMINOPHEN TAB 325 MG TAB PO PRN (10:24)
[2024-12-22] MEDS ORDERED: ONDANSETRON 4 MG/2 ML VIAL IVP PRN (10:24)
[2024-12-22] MEDS ORDERED: NALOXONE 0.4 MG/ML 1 ML VIAL IV PRN (10:24)
--- NOTE | 2024-12-22 10:30 | ED ---
Dizziness HPI - General Chief Complaint: Dizziness Stated Complaint: Weakness Time Seen by Provider: 12/22/24 08:36 Source: patient, RN notes reviewed Mode of arrival: wheelchair Limitations: no limitations - History of Present Illness Initial Comments: 69-year-old female presents emergency department chief complaint of dizziness. Patient states she has had symptoms over the last couple weeks worse with movement especially when she stands up. She states that she is concerned that she may be anemic as she has had recent transfusions, issues with anemia. Patient states she had a colonoscopy and EGD in September without significant findings. Patient states that she has dark stools but takes iron daily. Patient denies chest pain shortness of breath or palpitations denies any new focal weakness states that she has right-sided deficits from prior CVA in April. Patient states that she takes Plavix. Patient denies any dysuria no abdominal pain - Related Data Home Medications Medication Instructions Recorded Confirmed Escitalopram [Lexapro] 20 mg PO DAILY 06/10/24 10/14/24 Pantoprazole [Protonix] 40 mg PO DAILY 06/10/24 10/14/24 QUEtiapine FUMARATE [SEROquel] 300 mg PO HS 06/10/24 10/14/24 amLODIPine [Norvasc] 10 mg PO DAILY 06/10/24 10/14/24 buPROPion XL [Wellbutrin XL] 300 mg PO DAILY 06/10/24 10/14/24 Ferrous Sulfate [Feosol] 325 mg PO DAILY 08/20/24 10/14/24 lisinopriL [Zestril] 20 mg PO DAILY 08/20/24 10/14/24 Previous Rx's Medication Instructions Recorded Aspirin 81 mg PO DAILY 30 Days #30 tab 06/13/24 Atorvastatin [Lipitor] 40 mg PO HS 30 Days #30 tablet 06/13/24 Clopidogrel [Plavix] 75 mg PO DAILY 20 Days #20 tablet 06/13/24 Allergies Allergy/AdvReac Type Severity Reaction Status Date / Time ampicillin Allergy Severe LOWERED Verified 12/22/24 08:40 IMMUNE SYSTEM Review of Systems ROS Statement: Those systems with pertinent positive or pertinent negative responses have been documented in the HPI. ROS Other: All systems not noted in ROS Statement are negative. Past Medical History Past Medical History: Atrial Fibrillation, CVA/TIA, Eye Disorder, Hypertension, Osteoarthritis (OA) Additional Past Medical History / Comment(s): GLAUCOMA. MILD OA. CVA 06/27/23 legs coming back, R sided weakness. anemia History of Any Multi-Drug Resistant Organisms: None Reported Past Surgical History: Section, Cholecystectomy, Hysterectomy Additional Past Surgical History / Comment(s): Is wearing a loop recorder for A- Fib, endoscopy and colonoscopy Past Anesthesia/Blood Transfusion Reactions: Motion Sickness Past Psychological History: Bipolar Smoking Status: Former smoker Past Alcohol Use History: None Reported Past Drug Use History: None Reported - Past Family History Mother Family Medical History: No Reported History General Exam Limitations: no limitations General appearance: alert, in no apparent distress Head exam: Present: atraumatic, normocephalic, normal inspection Eye exam: Present: normal appearance, PERRL, EOMI. Absent: scleral icterus, conjunctival injection, periorbital swelling Respiratory exam: Present: normal lung sounds bilaterally. Absent: respiratory distress, wheezes, rales, rhonchi, stridor Cardiovascular Exam: Present: regular rate, normal rhythm, normal heart sounds. Absent: systolic murmur, diastolic murmur, rubs, gallop, clicks GI/Abdominal exam: Present: soft, normal bowel sounds. Absent: distended, tenderness, guarding, rebound, rigid Extremities exam: Present: other (Right sided weakness chronic) Neurological exam: Present: alert, oriented X3, CN II-XII intact, motor sensory deficit, reflexes normal Skin exam: Present: warm, dry, intact, normal color. Absent: rash Course Vital Signs 12/22/24 08:35 Temperature 98.4 F Pulse Rate 99 Respiratory 20 Rate Blood Pressure 147/79 O2 Sat by Pulse 99 Oximetry EKG Findings - EKG Comments: EKG Findings:: EKG performed at 8: 48 sinus rhythm rate of 78 ME 158 QRS 106 QT/QTc 358/391 - EKG Results: EKG: interpreted by ERMD Medical Decision Making - Medical Decision Making Was pt. sent in by a medical professional or institution (, PA, EDUCATIONAL TECHNOLOGY COORDINATOR, urgent care, hospital, or retirement...) When possible be specific @ -No Did you speak to anyone other than the patient for history (EMS, parent, family, police, friend...)? What history was obtained from this source @ -No Did you review nursing and triage notes (agree or disagree)? Why? @ -I reviewed and agree with nursing and triage notes Were old charts reviewed (outside hosp., previous admission, EMS record, old EKG, old radiological studies, urgent care reports/EKG's, retirement records)? Report findings @ -No old charts were reviewed Differential Diagnosis (chest pain, altered mental status, abdominal pain women, abdominal pain men, vaginal bleeding, weakness, fever, dyspnea, syncope, headache, dizziness, GI bleed, back pain, seizure, CVA, palpatations, mental health, musculoskeletal)? @ -Differential Dizziness: Benign paroxysmal positional Vertigo, Meniere's disease, otitis media, acoustic neuroma, vertebrobasilar insufficiency, cerebellar stroke, encephalitis, hypovolemic, arrhythmia, coronary artery syndrome, anemia, this is not meant to be an all-inclusive list EKG interpreted by me (3pts min.). @ -As above X-rays interpreted by me (1pt min.). @ -[Brain CT shows chronic changes, normal cerebellar right CT interpreted by me (1pt min.). @ -None done U/S interpreted by me (1pt. min.). @ -None done What testing was considered but not performed or refused? (CT, X-rays, U/S, labs)? Why? @ -None What meds were considered but not given or refused? Why? @ -None Did you discuss the management of the patient with other professionals (professionals i.e. , PA, EDUCATIONAL TECHNOLOGY COORDINATOR, lab, RT, psych nurse, social media job titles, medicare compliance auditor, teacher, signals officer, bilingual patient support caseworker)? Give summary @ -[Dr. Tran for admission Was smoking cessation discussed for >3mins.? @ -No Was critical care preformed (if so, how long)? @ -35 mins Were there social determinants of health that impacted care today? How? (Homelessness, low income, unemployed, alcoholism, drug addiction, transportation, low edu. Level, literacy, decrease access to med. care, prison, rehab)? @ -No Was there de-escalation of care discussed even if they declined (Discuss DNR or withdrawal of care, Hospice)? DNR status @ -No What co-morbidities impacted this encounter? (DM, HTN, Smoking, COPD, CAD, Cancer, CVA, ARF, Chemo, Hep., AIDS, mental health diagnosis, sleep apnea, morbid obesity)? @ -None Was patient admitted / discharged? Hospital course, mention meds given and route, prescriptions, significant lab abnormalities, going to OR and other pertinent info. @ -Admitted patient presented for increasing dizziness, lightheadedness patient having hemoglobin of 6.8. 1 unit of blood was ordered. Patient had GI consult was given Protonix. Patient have repeat H&H, further evaluation and treatment. Undiagnosed new problem with uncertain prognosis? @ -No Drug Therapy requiring intensive monitoring for toxicity (Heparin, Nitro, Insulin, Cardizem)? @ -No Were any procedures done? @ -No Diagnosis/symptom? @ -Anemia, dizziness Acute, or Chronic, or Acute on Chronic? @ -Acute Uncomplicated (without systemic symptoms) or Complicated (systemic symptoms)? @ -Complicated Side effects of treatment? @ -No Exacerbation, Progression, or Severe Exacerbation? @ -No Poses a threat to life or bodily function? How? (Chest pain, [place], VA, pneumonia, PE, COPD, DKA, ARF, appy, cholecystitis, CVA, Diverticulitis, Homicidal, Suicidal, threat to staff... and all critical care pts) @Yes anemia, threat to endorgan failure - Lab Data Result diagrams: 12/22/24 09:18 12/22/24 09:18 Lab Results 12/22/24 12/22/24 12/22/24 Range/Units 09:18 09:18 09:18 WBC 5.50 (4.50-10.00) 10*3/uL RBC 2.26 L (4.10-5.20) 10*6/uL Hgb 6.8 L* D (12.0-15.0) g/dL Hct 22.0 L (37.2-46.3) % MCV 97.3 H D (80.0-97.0) fL MCH 30.1 (27.0-32.0) pg MCHC 30.9 L (32.0-37.0) g/dL Plt Count 354 (140-440) 10*3/uL MPV 9.5 (9.5-12.2) fL Immature Gran % (Auto) 0.4 % Neutrophils % 74.4 % Lymphocytes % 14.7 % Monocytes % 7.3 % Eosinophils % 2.7 % Basophils % 0.5 % Immature Gran # 0.02 (0.00-0.04) 10*3/uL Neutrophils # 4.09 (1.80-7.70) 10*3/uL Lymphocytes # 0.81 L (0.90-5.00) 10*3/uL Monocytes # 0.40 (0.20-1.00) 10*3/uL Eosinophils # 0.15 (0.04-0.35) 10*3/uL Basophils # 0.03 (0.00-0.10) 10*3/uL Sodium 138 (137-145) mmol/L Potassium 4.0 (3.5-5.1) mmol/L Chloride 107 (98-107) mmol/L Carbon Dioxide 22 (22-30) mmol/L Anion Gap 9 mmol/L BUN 19 H (7-17) mg/dL Creatinine 1.27 H (0.52-1.04) mg/dL Est GFR (CKD-EPI)AfAm 50 (>60 ml/min/1.73 sqM) Est GFR (CKD-EPI)NonAf 44 (>60 ml/min/1.73 sqM) Glucose 147 H (74-99) mg/dL Calcium 9.7 (8.4-10.2) mg/dL Magnesium 1.9 (1.6-2.3) mg/dL Total Bilirubin 0.3 (0.2-1.3) mg/dL AST 16 (14-36) U/L ALT 13 (4-34) U/L Alkaline Phosphatase 109 (38-126) U/L Troponin I <0.012 (0.000-0.034) ng/mL Total Protein 6.7 (6.3-8.2) g/dL Albumin 4.2 (3.5-5.0) g/dL Critical Care Time Critical Care Time: Yes Total Critical Care Time: 35 Disposition Clinical Impression: Anemia, Dizziness Disposition: ADMITTED IP TO THIS [facility] Condition: Fair Referrals: Armin Pulliam DO [Primary Care Provider] - 1-2 days Time of Disposition: 10:28
[2024-12-22] MEDS: PANTOPRAZOLE 40 MG/10 ML VIAL IV SCH (11:17)
[2024-12-22 12:02] LABS: Bilirubin,Urine Negative (Negative); Color,Urine Colorless; Glucose,Urine (UA) Negative (Negative); Ketones,Urine Negative (Negative); PH, Urine 6.0 (5.0-8.0); Protein,Urine Negative (Negative); Specific Gravity,Urine 1.004 (1.001-1.035)
[2024-12-22 12:03] LABS: Blood,Urine Negative (Negative); Leukocyte Esterase,Urine Large (Negative); Nitrite,Urine Negative (Negative); RBC,Urine 1 /hpf (0-5); Squamous Epithelial Cell,Urine <1 /hpf (0-4); Urobilinogen,Urine <2.0 mg/dL (<2.0); WBC,Urine 7 /hpf (0-5)
--- NOTE | 2024-12-22 13:22 | P.CONS ---
History of Present Illness - Reason for Consult Consult date: 12/22/24 Anemia Requesting physician: Fermín Henriquez - Chief Complaint Dizziness, weakness - History of Present Illness This a pleasant 69-year-old female with a history of iron deficiency anemia who presented to the emergency department today with complaints of weakness and dizziness. She had blood work on as part of her workup with a hemoglobin of 6.8. 1 unit of blood has been ordered and gastroenterology was consulted for anemia. Patient has a history of stroke in May and is on aspirin and Plavix. She did recently have a workup for iron deficiency anemia with a EGD and colonoscopy. EGD with findings of mild antral gastritis and small hiatal hernia. Colonoscopy revealed multiple cecal arteriovenous malformations measuring between 1 cm to 2 cm in size with no active bleeding status post argon plasma coagulation and scattered sigmoid diverticulosis. Patient has been on iron supplementation. She has required blood transfusions in the past. States that her stools have been dark but she assumed that it was secondary to the iron. She denies any bright red blood. She also denies any abdominal pain, nausea or vomiting. Review of Systems REVIEW OF SYSTEMS: CARDIOPULMONARY: No chest pain or shortness of breath. Gastrointestinal: No abdominal pain. No nausea or vomiting. No hematemesis, coffee-ground emesis. No rectal bleeding, or melena. GENITOURINARY: No dysuria or hematuria. MUSCULOSKELETAL: Reports normal range of motion., Joint pain. SKIN: No rashes. No jaundice. ENDOCRINE: No chills, fevers. No excessive weight gain or loss. No polydipsia or polyuria. PSYCHIATRIC: Unremarkable. NEUROLOGY: No change in mental status. Denies dizziness, headache. ENT: Vision unremarkable. CONSTITUTIONAL: No recent weight loss. No fever, chills, night sweats. Past Medical History Past Medical History: Atrial Fibrillation, CVA/TIA, Eye Disorder, Hypertension, Osteoarthritis (OA) Additional Past Medical History / Comment(s): GLAUCOMA. MILD OA. CVA 06/27/23 legs coming back, R sided weakness. anemia History of Any Multi-Drug Resistant Organisms: None Reported Past Surgical History: Section, Cholecystectomy, Hysterectomy Additional Past Surgical History / Comment(s): Is wearing a loop recorder for A- Fib, endoscopy and colonoscopy Past Anesthesia/Blood Transfusion Reactions: Motion Sickness Past Psychological History: Bipolar Smoking Status: Former smoker Past Alcohol Use History: None Reported Past Drug Use History: None Reported - Past Family History Mother Family Medical History: No Reported History Medications and Allergies Home Medications Medication Instructions Recorded Confirmed Type Escitalopram [Lexapro] 20 mg PO DAILY 06/10/24 12/22/24 History Pantoprazole [Protonix] 40 mg PO DAILY 06/10/24 12/22/24 History QUEtiapine FUMARATE [SEROquel] 300 mg PO HS 06/10/24 12/22/24 History buPROPion XL [Wellbutrin XL] 300 mg PO HS 06/10/24 12/22/24 History Atorvastatin [Lipitor] 40 mg PO HS 30 Days #30 tablet 06/13/24 12/22/24 Rx Clopidogrel [Plavix] 75 mg PO DAILY 20 Days #20 tablet 06/13/24 12/22/24 Rx Ferrous Sulfate [Feosol] 325 mg PO DAILY 08/20/24 12/22/24 History lisinopriL [Zestril] 20 mg PO DAILY 08/20/24 12/22/24 History Aspirin 81 mg PO HS 12/22/24 12/22/24 History amLODIPine [Norvasc] 5 mg PO DAILY 12/22/24 12/22/24 History Allergies Allergy/AdvReac Type Severity Reaction Status Date / Time ampicillin Allergy Severe LOWERED Verified 12/22/24 10:42 IMMUNE SYSTEM Physical Exam Vitals: Vital Signs Temp Pulse Resp BP Pulse Ox 12/22/24 08:35 98.4 F 99 20 147/79 99 Intake and Output 12/21/24 12/22/24 12/22/24 22:59 06:59 14:59 Other: Weight 72.575 kg Results CBC & Chem 7: 12/22/24 09:18 12/22/24 09:18 Labs: Abnormal Lab Results - Last 24 Hours (Table) 12/22/24 12/22/24 Range/Units 09:18 09:18 RBC 2.26 L (4.10-5.20) 10*6/uL Hgb 6.8 L* D (12.0-15.0) g/dL Hct 22.0 L (37.2-46.3) % MCV 97.3 H D (80.0-97.0) fL MCHC 30.9 L (32.0-37.0) g/dL Lymphocytes # 0.81 L (0.90-5.00) 10*3/uL BUN 19 H (7-17) mg/dL Creatinine 1.27 H (0.52-1.04) mg/dL Glucose 147 H (74-99) mg/dL Assessment and Plan (1) Anemia Narrative/Plan: 69-year-old female with a history of iron deficiency anemia which has required blood transfusion in the past came in with symptomatic anemia with a noted hemoglobin is 6.8 who is on aspirin and Plavix secondary to recent stroke within the last year. Had recent workup with EGD colonoscopy with findings of multiple AVMs in the cecum. Patient not having any bright red blood but states that her stool has been dark but she believes secondary to iron however need to consider possible further AVMs consider AVMs in the small bowel and can consider evaluating with a small bowel capsule endoscopy. Current Visit: Yes Status: Acute Code(s): D64.9 - ANEMIA, UNSPECIFIED SNOMED Code(s): 044298757 (2) AVM (arteriovenous malformation) of colon Current Visit: Yes Status: Acute Code(s): K55.20 - ANGIODYSPLASIA OF COLON WITHOUT HEMORRHAGE SNOMED Code(s): 159994168 Plan: 1. Continue symptomatic and supportive care 2. Agree with blood transfusion 3. Daily CBC, transfuse for hemoglobin less than 7 4. Protonix 40 mg daily for GI prophylaxis 5. Hold Plavix 6. Patient may have clear liquid diet, n.p.o. after midnight 7. Further recommendations forthcoming Thank you for this consultation, we will continue to follow. Dr. Tiburcio Ross I agree with the dictator's note, documented as a scribe by Alda Hernandez.
[2024-12-22] MEDS: MAGNESIUM CITRATE 296 ML BOTTLE PO ONE (17:31)
--- NOTE | 2024-12-22 19:55 | HP ---
HISTORY AND PHYSICAL CHIEF COMPLAINT: Dizziness and weakness. HISTORY OF PRESENT ILLNESS: This is a 69-year-old woman with a past medical history of multiple medical problems including atrial fibrillation, CVA, TIA, was complaining of weakness and dizziness. The patient had anemia previously and multiple transfusions and the patient had EGD and colonoscopy by Dr. Ross in September which showed multiple cecal AV malformations between 1 cm to 2 cm size with no active bleeding. Argon plasma coagulation was done. Currently, the patient is feeling tired and weak. No melena. Hemoglobin was found to be 6.8. Patient being multiple transfused and Gastroenterology is planning a repeat endoscopy. There is no history of fever, rigors, chills at this time. PAST MEDICAL HISTORY: History of previous atrial fibrillation, history of cecal AV malformation, previous colonoscopy, rest of the chart is also reviewed. HOME MEDICATIONS: Reviewed include Zestril. Dose and rest of medications reviewed. ALLERGIES: Sherman ampicillin. FAMILY HISTORY: No history of heart disease or strokes in the family. SOCIAL HISTORY: Previous smoking. REVIEW OF SYSTEMS: Fourteen-point review is negative except as mentioned earlier. PHYSICAL EXAMINATION: VITAL SIGNS: Pulse is 73, blood pressure 130/80 respirations 16. HEENT: Conjunctivae normal. NECK: No jugular venous distention. CARDIOVASCULAR: S1, S2. RESPIRATION: Breath sounds diminished at the bases. ABDOMEN: Soft. LEGS: No edema. No swelling. NERVOUS SYSTEM: No focal deficit. LABORATORY DATA: Hemoglobin 6.2. Rest of the labs are noted. ASSESSMENT: 1. Dizziness and anemia, acute on chronic GI blood loss, possibly. 2. History of cecal arteriovenous malformation. Argon plasma coagulation, colonoscopy recently. 3. Atrial fibrillation. 4. History of cerebrovascular accident, transient ischemic attack. 5. Hypertension. 6. History of degenerative joint disease. 7. History of glaucoma. 8. History of bipolar. RECOMMENDATIONS AND DISCUSSION: This 69-year-old woman presented with multiple complex medical issues. We will monitor the patient closely. The patient has been transfused 1 unit. Recommend to closely follow with Dr. Ross. We will recommend consult Cardiology also and hold of anticoagulation at this time. Guarded prognosis because of multiple complex medical conditions. Further recommendations to follow. Resume the home medications. See orders for details. MMODL / IJN: [id number] /
[2024-12-22] MEDS: buPROPion XL 300 MG TAB.ER.24H PO SCH (20:07)
[2024-12-22] MEDS: ATORVASTATIN 40 MG TAB PO SCH (20:07)
[2024-12-22] MEDS: QUEtiapine 100 MG TAB PO SCH (20:07)
[2024-12-23 07:59] LABS: HCT 24.6 % (37.2-46.3); HGB 7.8 g/dL (12.0-15.0); MCH 30.1 pg (27.0-32.0); MCHC 31.7 g/dL (32.0-37.0); MCV 95.0 fL (80.0-97.0); Platelet Count 326 10*3/uL (140-440); RBC 2.59 10*6/uL (4.10-5.20); RDW 18.8 % (11.5-14.5); WBC 6.01 10*3/uL (4.50-10.00)
[2024-12-23 08:25] LABS: African American GFR (CKD) 57 (>60 ml/min/1.73 sqM); Anion Gap 9 mmol/L; Blood Urea Nitrogen 15 mg/dL (7-17); Calcium 9.1 mg/dL (8.4-10.2); Carbon Dioxide 21 mmol/L (22-30); Chloride 109 mmol/L (98-107); Glucose 115 mg/dL (74-99); Non-African American GFR(CKD) 49 (>60 ml/min/1.73 sqM); Potassium 4.1 mmol/L (3.5-5.1); Sodium 139 mmol/L (137-145)
[2024-12-23] MEDS: SIMETHICONE 40 MG/0.6 ML DROPS 2,000 MG/30 ML BOTTLE PO ONE (09:00)
--- NOTE | 2024-12-23 11:35 | P.PN ---
Subjective Progress Note Date: 12/23/24 Principal diagnosis: Anemia This a pleasant 69-year-old female with a history of iron deficiency anemia who presented to the emergency department today with complaints of weakness and dizziness. She had blood work on as part of her workup with a hemoglobin of 6.8. 1 unit of blood has been ordered and gastroenterology was consulted for anemia. Patient has a history of stroke in May and is on aspirin and Plavix. She did recently have a workup for iron deficiency anemia with a EGD and colonoscopy. EGD with findings of mild antral gastritis and small hiatal hernia. Colonoscopy revealed multiple cecal arteriovenous malformations measuring between 1 cm to 2 cm in size with no active bleeding status post argon plasma coagulation and scattered sigmoid diverticulosis. Patient has been on iron supplementation. She has required blood transfusions in the past. States that her stools have been dark but she assumed that it was secondary to the iron. She denies any bright red blood. She also denies any abdominal pain, nausea or vomiting. 12/23/2024 Patient is seen and examined today as a follow-up. She denies any abdominal pain nausea or vomiting. Denies any blood in her stool. She is awaiting to get her small bowel capsule endoscopy started. Patient states she feels better today she has more energy and denies any dizziness. Today's repeat hemoglobin i s 7.8 up from 6.8 after 1 unit of blood given. Objective - Vital Signs Vital signs: Vital Signs Temp 98.1 F 12/23/24 07:53 Pulse 90 12/23/24 07:53 Resp 16 12/23/24 07:53 BP 118/62 12/23/24 07:53 Pulse Ox 96 12/23/24 07:53 FiO2 Intake & Output 12/22/24 12/23/24 12/23/24 18:59 06:59 18:59 Intake Total 756 540 Output Total 1 Balance 756 539 Weight 72.575 kg 73 kg Intake: Oral 480 540 Blood Product 276 Rc Pheresis 2 As3 Unit 276 [id number] Output: Urine 1 Other: Voiding Method Toilet - Exam General appearance: The patient is alert, oriented, appears in no acute distress. HET: Head is normocephalic and atraumatic. Conjunctiva pink. Sclera anicteric. Neck: Supple without lymphadenopathy. Abdomen: Soft, nontender, nondistended. Extremities: Normal skin color and turgor. No pedal edema Skin: No rashes, no jaundice Neurological: No focal deficits. Alert and oriented. - Labs CBC & Chem 7: 12/23/24 07:00 12/23/24 07:00 Labs: Abnormal Lab Results - Last 24 Hours (Table) 12/22/24 12/22/24 12/22/24 Range/Units 08:53 09:18 09:18 RBC 2.26 L (4.10-5.20) 10*6/uL Hgb 6.8 L* D (12.0-15.0) g/dL Hct 22.0 L (37.2-46.3) % MCV 97.3 H D (80.0-97.0) fL MCHC 30.9 L (32.0-37.0) g/dL Lymphocytes # 0.81 L (0.90-5.00) 10*3/uL Chloride (98-107) mmol/L Carbon Dioxide (22-30) mmol/L BUN 19 H (7-17) mg/dL Creatinine 1.27 H (0.52-1.04) mg/dL Glucose 147 H (74-99) mg/dL Ur Leukocyte Esterase (Negative) Urine WBC (0-5) /hpf Crossmatch See Detail 12/22/24 12/23/24 12/23/24 Range/Units 11:30 07:00 07:00 RBC 2.59 L (4.10-5.20) 10*6/uL Hgb 7.8 L (12.0-15.0) g/dL Hct 24.6 L (37.2-46.3) % MCV (80.0-97.0) fL MCHC 31.7 L (32.0-37.0) g/dL Lymphocytes # (0.90-5.00) 10*3/uL Chloride 109 H (98-107) mmol/L Carbon Dioxide 21 L (22-30) mmol/L BUN (7-17) mg/dL Creatinine 1.15 H (0.52-1.04) mg/dL Glucose 115 H (74-99) mg/dL Ur Leukocyte Esterase Large H (Negative) Urine WBC 7 H (0-5) /hpf Crossmatch Assessment and Plan (1) Anemia Narrative/Plan: 69-year-old female with a history of iron deficiency anemia which has required blood transfusion in the past came in with symptomatic anemia with a noted hemoglobin is 6.8 who is on aspirin and Plavix secondary to recent stroke within the last year. Had recent workup with EGD colonoscopy with findings of multiple AVMs in the cecum. Patient not having any bright red blood but states that her stool has been dark but she believes secondary to iron however need to consider possible further AVMs consider AVMs in the small bowel and can consider evaluating with a small bowel capsule endoscopy. Current Visit: Yes Status: Acute Code(s): D64.9 - ANEMIA, UNSPECIFIED SNOMED Code(s): 692275305 (2) AVM (arteriovenous malformation) of colon Current Visit: Yes Status: Acute Code(s): K55.20 - ANGIODYSPLASIA OF COLON WITHOUT HEMORRHAGE SNOMED Code(s): 891639317 Plan: 1. Continue symptomatic and supportive care 2. Agree with blood transfusion 3. Daily CBC, transfuse for hemoglobin less than 7 4. Protonix 40 mg daily for GI prophylaxis 5. Hold Plavix 6. Keep n.p.o. as directed, may have clear liquids 4 hours after small bowel capsule endoscopy and then regular diet for dinner. 7. Small bowel capsule endoscopy today Thank you for this consultation, we will continue to follow. Dr. Tiburcio Ross I agree with the dictator's note, documented as a scribe by Alda Hernandez.
[2024-12-23] MEDS: ESCITALOPRAM 20 MG TAB PO SCH (13:02)
[2024-12-23] MEDS: amLODIPine 5 MG TAB PO SCH (13:02)
--- NOTE | 2024-12-23 15:38 | P.CNNES ---
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 Patient was found to have current GI bleed. Patient denies any new focal weakness, visual disturbance, speech difficulty swallowing. She had an old stroke in April 2024 with residual ataxia and unsteady gait and as a result using cane. She has been using aspirin and Plavix daily. She stated that she had similar presentation close to 2-month ago or slightly longer but these have started since she has been on the aspirin and Plavix. She denies any blood that she noticed in the stool or the urine. Patient states she follows up with her outpatient neurologist, Dr. Rowe. In this hospital visit her aspirin and Plavix has been placed on hold. The GI team states the patient has a history of iron deficiency anemia and re quired blood transfusions in the past with symptomatic anemia dual antiplatelet in the last 1 year and had a recent EGD colonoscopy and had multiple AVM in the cecum. Recommend symptomatic management. Some of the work-up during this hospital visit consisted of: Her hemoglobin is 6.8 Platelets is 354,000. CT of the head reported as no acute intracranial process. Nonspecific mild white matter changes likely secondary due to chronic small vessel ischemic disease. Remote right cerebellar ischemic injury. I personally reviewed the CT and agree with the report. Review of Systems As per HPI. Past Medical History Past Medical History: Atrial Fibrillation, CVA/TIA, Eye Disorder, Hypertension, Osteoarthritis (OA) Additional Past Medical History / Comment(s): GLAUCOMA. MILD OA. CVA 06/27/23 legs coming back, R sided weakness. anemia History of Any Multi-Drug Resistant Organisms: None Reported Past Surgical History: Section, Cholecystectomy, Hysterectomy Additional Past Surgical History / Comment(s): Is wearing a loop recorder for A- Fib, endoscopy and colonoscopy Past Anesthesia/Blood Transfusion Reactions: Motion Sickness Past Psychological History: Bipolar Smoking Status: Former smoker Past Alcohol Use History: None Reported Past Drug Use History: None Reported - Past Family History Mother Family Medical History: No Reported History Medications and Allergies Home Medications Medication Instructions Recorded Confirmed Type Escitalopram [Lexapro] 20 mg PO DAILY 06/10/24 12/22/24 History Pantoprazole [Protonix] 40 mg PO DAILY 06/10/24 12/22/24 History QUEtiapine FUMARATE [SEROquel] 300 mg PO HS 06/10/24 12/22/24 History buPROPion XL [Wellbutrin XL] 300 mg PO HS 06/10/24 12/22/24 History Atorvastatin [Lipitor] 40 mg PO HS 30 Days #30 tablet 06/13/24 12/22/24 Rx Clopidogrel [Plavix] 75 mg PO DAILY 20 Days #20 tablet 06/13/24 12/22/24 Rx Ferrous Sulfate [Feosol] 325 mg PO DAILY 08/20/24 12/22/24 History lisinopriL [Zestril] 20 mg PO DAILY 08/20/24 12/22/24 History Aspirin 81 mg PO HS 12/22/24 12/22/24 History amLODIPine [Norvasc] 5 mg PO DAILY 12/22/24 12/22/24 History Allergies Allergy/AdvReac Type Severity Reaction Status Date / Time ampicillin Allergy Severe LOWERED Verified 12/22/24 10:42 IMMUNE SYSTEM Physical Examination - Vital Signs Vital Signs: Vital Signs Temp Pulse Resp BP Pulse Ox 12/23/24 11:34 82 16 127/73 99 12/23/24 08:47 99 12/23/24 07:53 98.1 F 90 16 118/62 96 12/23/24 04:00 97.7 F 92 16 121/62 97 12/23/24 00:00 72 16 124/65 96 12/22/24 20:00 97.8 F 86 16 132/60 96 Intake and Output 12/23/24 12/23/24 12/23/24 06:59 14:59 22:59 Intake Total 540 Output Total 1 Balance 539 Intake: Oral 540 Output: Urine 1 Other: Voiding Method Toilet Weight 73 kg GENERAL: The patient is lying in bed and is not in acute distress. NEUROLOGICAL: Higher mental function: The patient is awake, alert, oriented to self, place and time. Patient is following commands. No aphasia and no neglect. Cranial nerves: The pupils are round, equal and reactive to light and accommodation. Visual hernández are full to confrontation throughout. Extraocular movement is intact no nystagmus is noted. Facial sensation is normal to touch throughout. The facial strength is normal throughout. Hearing is normal bilaterally to hand rub. Tongue is midline and moved [id number] without any difficulty. No dysarthria is noted. Shoulder shrug is normal bilaterally. Motor: The strength is 5 over 5 throughout. Normal tone and bulk. Cerebellum: Ataxia with finger to nose and heel to ch over the right side. Sensation: Sensation is normal to touch throughout. Reflexes (right/left): 2+ throughout. Plantars are mute bilaterally. Results - Laboratory Findings CBC and BMP: 12/23/24 07:00 12/23/24 07:00 Abnormal Lab Findings: Abnormal Labs 12/22/24 12/22/24 12/22/24 08:53 09:18 09:18 RBC 2.26 L Hgb 6.8 L* D Hct 22.0 L MCV 97.3 H D MCHC 30.9 L Lymphocytes # 0.81 L Chloride Carbon Dioxide BUN 19 H Creatinine 1.27 H Glucose 147 H Ur Leukocyte Esterase Urine WBC Crossmatch See Detail 12/22/24 12/23/24 12/23/24 11:30 07:00 07:00 RBC 2.59 L Hgb 7.8 L Hct 24.6 L MCV MCHC 31.7 L Lymphocytes # Chloride 109 H Carbon Dioxide 21 L BUN Creatinine 1.15 H Glucose 115 H Ur Leukocyte Esterase Large H Urine WBC 7 H Crossmatch Assessment and Plan Assessment: This is a 69-year-old woman with recent right cerebellar stroke in April 2024 who is having anemia since being placed on dual antiplatelet and required blood transfusions in the past. She comes in with generalized weakness. She has's a nemia worse than baseline. CT of the head is unremarkable for any acute process. Acute on chronic anemia and it seems that the patient has history of iron deficiency anemia requiring blood transfusion in the past and seems got worse since the patient was placed on dual antiplatelet. She had recent EGD and colonoscopy which shows multiple AVMs in the cecum. Currently her dual antiplatelet are placed on hold Arterial venous malformation of the colon Recent stroke over the right cerebellar region on April 2024. Plan: Once patient is more stable then I recommend placing the patient on only aspirin 81 mg daily and avoiding dual antiplatelet from a neurologic perspective because of her worsening anemia requiring blood transfusion and risk seems to outweigh the benefit of dual antiplatelet. GI team is on board. They are recommending symptomatic management. Will defer the rest of the medical management to primary and other specialist. Patient to follow-up with her outpatient neurologist within 4 weeks. Thank you for the consultation There is no further neurological workup. Will sign off. Please reconsult if needed. Time with Patient: Greater than 30
--- NOTE | 2024-12-23 23:44 | PN ---
PROGRESS NOTE DATE OF SERVICE: 12/23/2024 SUBJECTIVE: This is a 69-year-old woman who was admitted with dizziness, weakness, evaluate for anemia. Hemoglobin 7.8 after 1 unit transfusion today. Gastroenterology saw the patient. The patient also had recent cerebellar stroke also. Gastroenterology recommending small bowel capsule enteroscopy. PAST MEDICAL HISTORY: Reviewed. REVIEW OF SYSTEMS: Fourteen-point review of systems negative except as mentioned earlier. CURRENT MEDICATIONS: Reviewed. PHYSICAL EXAMINATION: VITAL SIGNS: Pulse is 109, blood pressure 120/60, respirations 20. HEENT: Conjunctiva normal. CARDIAC: S1, S2. RESPIRATION: Breath sounds diminished at the bases. No rhonchi, no crackles. ABDOMEN: Soft. NERVOUS SYSTEM: Nonfocal. LABORATORY DATA: Creatinine 1.0, hemoglobin 7.8. ASSESSMENT: 1. Dizziness and anemia, rule out acute on chronic GI bleed, possibly. 2. History of cecal arteriovenous malformation, started on plasma coagulation, colonoscopy recently. 3. Atrial fibrillation. 4. History of cerebrovascular accident, transient ischemic attack. 5. Hypertension. 6. History of diabetic ketoacidosis. 7. History of glaucoma. 8. History of bipolar. RECOMMENDATIONS AND DISCUSSION: I recommend to continue current management and treatment plan. The patient still has low hemoglobin. Repeat labs. Closely follow with Gastroenterology. Guarded prognosis because of multiple complex medical issues. We will hold off anticoagulation. is well controlled. Neurology input appreciated. The patient had multiple complicated strokes and cerebellar lesion and recently was transferred to elsewhere. MMODL / IJN: [id number] /
[2024-12-24 00:56] LABS: HCT 24.8 % (37.2-46.3); HGB 7.8 g/dL (12.0-15.0); MCH 30.0 pg (27.0-32.0); MCHC 31.5 g/dL (32.0-37.0); MCV 95.4 fL (80.0-97.0); Platelet Count 323 10*3/uL (140-440); RBC 2.60 10*6/uL (4.10-5.20); RDW 18.6 % (11.5-14.5); WBC 7.12 10*3/uL (4.50-10.00)
[2024-12-24 07:26] LABS: Basophils # (A) 0.04 10*3/uL (0.00-0.10); Basophils % (A) 0.6 %; Eosinophils # (A) 0.21 10*3/uL (0.04-0.35); Eosinophils % (A) 3.4 %; HCT 25.8 % (37.2-46.3); HGB 8.0 g/dL (12.0-15.0); Lymphocytes # (A) 1.38 10*3/uL (0.90-5.00); Lymphocytes % (A) 22.3 %; MCH 29.9 pg (27.0-32.0); MCHC 31.0 g/dL (32.0-37.0); MCV 96.3 fL (80.0-97.0); Monocytes # (A) 0.53 10*3/uL (0.20-1.00); Monocytes % (A) 8.6 %; Neutrophils # (A) 4.01 10*3/uL (1.80-7.70); Neutrophils % (A) 64.8 %; Platelet Count 327 10*3/uL (140-440); RBC 2.68 10*6/uL (4.10-5.20); RDW 18.1 % (11.5-14.5); WBC 6.19 10*3/uL (4.50-10.00)
[2024-12-24 07:57] LABS: African American GFR (CKD) 52 (>60 ml/min/1.73 sqM); Anion Gap 8 mmol/L; Blood Urea Nitrogen 18 mg/dL (7-17); Calcium 9.2 mg/dL (8.4-10.2); Carbon Dioxide 21 mmol/L (22-30); Chloride 110 mmol/L (98-107); Glucose 110 mg/dL (74-99); Non-African American GFR(CKD) 45 (>60 ml/min/1.73 sqM); Potassium 4.1 mmol/L (3.5-5.1); Sodium 139 mmol/L (137-145)
--- NOTE | 2024-12-24 13:39 | P.PN ---
Subjective Progress Note Date: 12/24/24 Principal diagnosis: Anemia This a pleasant 69-year-old female with a history of iron deficiency anemia who presented to the emergency department today with complaints of weakness and dizziness. She had blood work on as part of her workup with a hemoglobin of 6.8. 1 unit of blood has been ordered and gastroenterology was consulted for anemia. Patient has a history of stroke in May and is on aspirin and Plavix. She did recently have a workup for iron deficiency anemia with a EGD and colonoscopy. EGD with findings of mild antral gastritis and small hiatal hernia. Colonoscopy revealed multiple cecal arteriovenous malformations measuring between 1 cm to 2 cm in size with no active bleeding status post argon plasma coagulation and scattered sigmoid diverticulosis. Patient has been on iron supplementation. She has required blood transfusions in the past. States that her stools have been dark but she assumed that it was secondary to the iron. She denies any bright red blood. She also denies any abdominal pain, nausea or vomiting. 12/23/2024 Patient is seen and examined today as a follow-up. She denies any abdominal pain nausea or vomiting. Denies any blood in her stool. She is awaiting to get her small bowel capsule endoscopy started. Patient states she feels better today she has more energy and denies any dizziness. Today's repeat hemoglobin i s 7.8 up from 6.8 after 1 unit of blood given. 12/24/2024 Patient seen and examined today as a follow-up. States she is feeling better. Hemoglobin stable at 8.0. Underwent small bowel capsule endoscopy yesterday. Capsule study currently uploading. Patient states had dark stool yesterday. No abdominal pain nausea or vomiting. Objective - Vital Signs Vital signs: Vital Signs Temp 98.0 F 12/24/24 04:00 Pulse 96 12/24/24 04:00 Resp 16 12/24/24 04:00 BP 116/74 12/24/24 04:00 Pulse Ox 98 12/24/24 04:00 FiO2 Intake & Output 12/23/24 12/23/24 12/24/24 06:59 18:59 06:59 Intake Total 540 960 Output Total 1 Balance 539 960 Weight 73 kg 77.2 kg Intake: Oral 540 960 Output: Urine 1 Other: Voiding Method Toilet Toilet # Voids 2 - Exam General appearance: The patient is alert, oriented, appears in no acute distress. HET: Head is normocephalic and atraumatic. Conjunctiva pink. Sclera anicteric. Neck: Supple without lymphadenopathy. Abdomen: Soft, nontender, nondistended. Extremities: Normal skin color and turgor. No pedal edema Skin: No rashes, no jaundice Neurological: No focal deficits. Alert and oriented. - Labs CBC & Chem 7: 12/24/24 06:08 12/24/24 06:08 Labs: Abnormal Lab Results - Last 24 Hours (Table) 12/22/24 12/23/24 12/23/24 Range/Units 08:53 07:00 07:00 RBC 2.59 L (4.10-5.20) 10*6/uL Hgb 7.8 L (12.0-15.0) g/dL Hct 24.6 L (37.2-46.3) % MCHC 31.7 L (32.0-37.0) g/dL MPV (9.5-12.2) fL Chloride 109 H (98-107) mmol/L Carbon Dioxide 21 L (22-30) mmol/L Creatinine 1.15 H (0.52-1.04) mg/dL Glucose 115 H (74-99) mg/dL Crossmatch See Detail 12/24/24 Range/Units 00:17 RBC 2.60 L (4.10-5.20) 10*6/uL Hgb 7.8 L (12.0-15.0) g/dL Hct 24.8 L (37.2-46.3) % MCHC 31.5 L (32.0-37.0) g/dL MPV 9.3 L (9.5-12.2) fL Chloride (98-107) mmol/L Carbon Dioxide (22-30) mmol/L Creatinine (0.52-1.04) mg/dL Glucose (74-99) mg/dL Crossmatch Assessment and Plan (1) Anemia Narrative/Plan: 69-year-old female with a history of iron deficiency anemia which has required blood transfusion in the past came in with symptomatic anemia with a noted hemoglobin is 6.8 who is on aspirin and Plavix secondary to recent stroke within the last year. Had recent workup with EGD colonoscopy with findings of multiple AVMs in the cecum. Patient not having any bright red blood but states that her stool has been dark but she believes secondary to iron however need to consider possible further AVMs consider AVMs in the small bowel and can consider evalu ating with a small bowel capsule endoscopy. Current Visit: Yes Status: Acute Code(s): D64.9 - ANEMIA, UNSPECIFIED SNOMED Code(s): 716022125 (2) GI bleed Narrative/Plan: Status post small bowel capsule endoscopy with evidence of bleeding AVM in the duodenum also antral gastritis noted with no active bleeding. Will plan to schedule patient for EGD with push enteroscopy tomorrow. Continue with iron supplementation, transfuse as needed for hemoglobin less than 7. Current Visit: Yes Status: Acute Code(s): K92.2 - GASTROINTESTINAL HEMORRHAGE, UNSPECIFIED SNOMED Code(s): 64712498 (3) AVM (arteriovenous malformation) of colon Current Visit: Yes Status: Acute Code(s): K55.20 - ANGIODYSPLASIA OF COLON WITHOUT HEMORRHAGE SNOMED Code(s): 338012446 Plan: 1. Continue symptomatic and supportive care 2. N.p.o. after midnight 3. Daily CBC, transfuse for hemoglobin less than 7 4. Continue to hold aspirin and Plavix 5. Plan for EGD with push enteroscopy tomorrow Thank you for this consultation, we will continue to follow. Dr. Tiburcio Ross I agree with the dictator's note, documented as a scribe by Alda Hernandez.
--- NOTE | 2024-12-24 21:55 | P.PN ---
Subjective Progress Note Date: 12/24/24 This is a pleasant 69-year-old female who was recently admitted with dizziness and weakness with concerns of anemia and possible GI bleed. Patient's hemoglobin today is above 8 with no active bleeding noted with GI following closely underwent small bowel capsule study which is being uploaded and pending at this time. Discussion is in place regarding possible EGD with push through 12/25/2024. Patient will be n.p.o. at midnight and will await GI recommendations. Patient did have recent cerebellar stroke maintained on aspirin and Plavix and neurology evaluated recommending just baby aspirin once c leared by GI. Patient is currently afebrile with no reported chest pain or shortness of breath. Patient has been laying in bed and recommend increase activity as tolerated with sitting out in the chair more frequently. Will follow-up on repeat labs in the a.m. Review of systems: Constitutional: No reports of fatigue, fever, or chills Cardiovascular: No reports of chest pain or palpitations Respiratory: No reports of shortness of breath or cough GI: No reports of nausea, no reports of vomiting, reports having bowel movements that are dark with no bright red blood noted : No reports of dysuria or retention Neurovascular: reports of generalized weakness All medications have been reviewed PHYSICAL EXAMINATION: GENERAL: The patient is alert and oriented x4, Well developed, well nourished. Elderly appearing, obese HEENT: Pupils are round and equally reacting to light. EOMI. no scleral icterus. No conjunctival pallor. Normocephalic, atraumatic. No pharyngeal erythema. No thyromegaly. CARDIOVASCULAR: S1 and S2 muffled PULMONARY: diminished breath sounds bilaterally with no wheezing or rhonchi noted. ABDOMEN: soft. Nontender on exam. obese. non-distended, normoactive bowel sounds. No palpable organomegaly. MUSCULOSKELETAL: No joint swelling or deformity. EXTREMITIES: No cyanosis, clubbing, or pedal edema. NEUROLOGICAL: Gross neurological examination did not reveal any focal deficits. Diffuse weakness SKIN: No rashes. Assessment: Dizziness and anemia, rule out acute on chronic GI bleed possibly status post small bowel capsule study which is pending History of cecal arteriovenous malformation, started on plasma coagulation, recent colonoscopy with previous cauterization Atrial fibrillation history history of CVA/TIA with residual right-sided weakness obesity with a BMI of 31.1 history of DKA History of glaucoma Bipolar history Former smoker GI prophylaxis DVT prophylaxis Full code Plan: Recommend to continue with current medications and management with GI following. Patient underwent small capsule study which report is being uploaded and pend ing at this time. GI following and will be made n.p.o. at midnight with possible EGD with push through in the a.m. Hemoglobin is above 8 currently with no active bleeding noted and will follow-up on repeat labs and transfuse if 7 or less Encouraged increase activity as tolerated including sitting up in the chair more frequently Will discuss further with GI regarding discharge planning Neurology has evaluated the patient with history of CVA/TIA maintained on aspirin and Plavix which are currently held at this time. Likely resume only aspirin once cleared by GI surgery Will discuss with GI after endoscopy tomorrow if patient hemoglobin is stable may consider discharge planning in the next 24 hours Due to multiple complex medical issues, overall prognosis is guarded The impression and plan of care has been dictated by Megan Desai, nurse practitioner as directed. Dr. Marc MD I have performed a history and examination and MDM of this patient, discussed the same with the dictator, and agree with the dictator's assessment and plan as written ,documented as a scribe. Based on total visit time, I have performed more than 50% of the visit. Any additional findings or plans will be noted. Objective - Vital Signs Vital signs: Vital Signs Temp 98.2 F 12/24/24 08:35 Pulse 79 12/24/24 16:00 Resp 18 12/24/24 16:00 BP 102/69 12/24/24 16:00 Pulse Ox 97 12/24/24 16:00 FiO2 Intake & Output 12/23/24 12/24/24 12/24/24 18:59 06:59 18:59 Intake Total 960 598 Balance 960 598 Weight 77.2 kg Intake: Oral 960 598 Other: Voiding Method Toilet Toilet # Voids 2 - Labs CBC & Chem 7: 12/24/24 06:08 12/24/24 06:08 Labs: Abnormal Lab Results - Last 24 Hours (Table) 12/22/24 12/24/24 12/24/24 Range/Units 08:53 00:17 06:08 RBC 2.60 L 2.68 L (4.10-5.20) 10*6/uL Hgb 7.8 L 8.0 L (12.0-15.0) g/dL Hct 24.8 L 25.8 L (37.2-46.3) % MCHC 31.5 L 31.0 L (32.0-37.0) g/dL MPV 9.3 L (9.5-12.2) fL Chloride (98-107) mmol/L Carbon Dioxide (22-30) mmol/L BUN (7-17) mg/dL Creatinine (0.52-1.04) mg/dL Glucose (74-99) mg/dL Crossmatch See Detail 12/24/24 Range/Units 06:08 RBC (4.10-5.20) 10*6/uL Hgb (12.0-15.0) g/dL Hct (37.2-46.3) % MCHC (32.0-37.0) g/dL MPV (9.5-12.2) fL Chloride 110 H (98-107) mmol/L Carbon Dioxide 21 L (22-30) mmol/L BUN 18 H (7-17) mg/dL Creatinine 1.23 H (0.52-1.04) mg/dL Glucose 110 H (74-99) mg/dL Crossmatch
[2024-12-25 08:34] LABS: HCT 26.0 % (37.2-46.3); HGB 8.0 g/dL (12.0-15.0); MCH 29.5 pg (27.0-32.0); MCHC 30.8 g/dL (32.0-37.0); MCV 95.9 fL (80.0-97.0); Platelet Count 313 10*3/uL (140-440); RBC 2.71 10*6/uL (4.10-5.20); RDW 17.2 % (11.5-14.5); WBC 6.09 10*3/uL (4.50-10.00)
[2024-12-25 08:51] LABS: African American GFR (CKD) 58 (>60 ml/min/1.73 sqM); Anion Gap 9 mmol/L; Blood Urea Nitrogen 16 mg/dL (7-17); Calcium 8.9 mg/dL (8.4-10.2); Carbon Dioxide 21 mmol/L (22-30); Chloride 109 mmol/L (98-107); Glucose 110 mg/dL (74-99); Non-African American GFR(CKD) 50 (>60 ml/min/1.73 sqM); Potassium 4.4 mmol/L (3.5-5.1); Sodium 139 mmol/L (137-145)
[2024-12-25] MEDS ORDERED: PROPOFOL 10 MG/ML 20 ML VIAL IV ONE (14:17)
[2024-12-25] MEDS: LACTATED RINGERS 1,000 ML IV ONE (14:26)
--- NOTE | 2024-12-25 14:32 | P.PCN ---
Date of Procedure: 12/25/24 Procedure(s) Performed: BRIEF HISTORY: Patient is a 69-year-old, pleasant, admitted to hospital with severe symptomatic anemia and hemoglobin of 6 g/dL. She recently had an EGD and a colonoscopy in October 2024 as a part of evaluation of iron deficiency anemia and was noted to have multiple cecal angio ectasia that was coagulated using argon plasma coagulation. 2 days ago she presented to the hospital with hemoglobin of 6 g/dL and intermittent colored stool. She had a small bowel capsule endoscopy done yesterday that revealed active oozing in the eczema jejunum and in the proximal duodenum. She is not scheduled for an upper endoscopy/enteroscopy today.. PROCEDURE PERFORMED: Esophagogastroduodenoscopy/enteroscopy with cautery PREOPERATIVE DIAGNOSIS: Proximal duodenal/jejunal bleed on recent capsule endoscopy and iron deficiency anemia. IV sedation per anesthesia. PROCEDURE: After informed consent was obtained, the patient was brought into the endoscopy unit. IV conscious sedation was administered by Anesthesia under continuous monitoring. Initially the Olympus GIF-140 video endoscope was inserted into the mouth. Esophagus intubated without any difficulty. It was gradually advanced into the stomach and duodenum and jejunum and carefully examined. Scope was advanced at least 60 cm from the ligament of Treitz. In the proximal jejunum there were at least 7 or 8 nonbleeding angioectasia identified all measuring between 3 to 4 mm in size which were all cauterized using a gold probe. In the third part of the duodenum there were 2 small angiectasia that were nonbleeding that were cauterized using a gold probe. The bulb and the second part of the duodenum appeared normal. The scope at this time was withdrawn to the stomach, adequately insufflated with air, and upon careful examination, mucosa of the antrum, body, cardia and the fundus appeared normal. The scope was then withdrawn into the esophagus. No hiatal hernia noted. The GE junction was located at 39 cm from the incisors. The esophagus appeared normal. There were no erosions or ulcerations seen and the patient tolerated the procedure well. IMPRESSION: 1. 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 2. Small hiatal hernia. RECOMMENDATIONS: The findings of this examination were discussed with the patient as well as her family. Monitor CBC daily. If hemoglobin remains stable she can be discharged home tomorrow. Resume her regular diet.
--- NOTE | 2024-12-25 22:01 | P.PN ---
Subjective Progress Note Date: 12/25/24 This is a pleasant 69-year-old female who was recently admitted with dizziness and weakness with concerns of anemia and possible GI bleed. Patient's hemoglobin today is above 8 with no active bleeding noted with GI following closely underwent small bowel capsule study which is being uploaded and pending at this time. Discussion is in place regarding possible EGD with push through 12/25/2024. Patient will be n.p.o. at midnight and will await GI recommendations. Patient did have recent cerebellar stroke maintained on aspirin and Plavix and neurology evaluated recommending just baby aspirin once c leared by GI. Patient is currently afebrile with no reported chest pain or shortness of breath. Patient has been laying in bed and recommend increase activity as tolerated with sitting out in the chair more frequently. Will follow-up on repeat labs in the a.m. 12/25/2024 Patient is seen in follow-up today with no acute overnight issues noted. Patient is currently n.p.o. as patient is scheduled to undergo endoscopy today with GI. Hemoglobin is stable with no active bleeding noted. Patient did undergo small capsule study which is pending at this time.. Will await report and follow-up on repeat labs will plan on discharge planning once cleared by GI. Patient is afebrile with no reported chest pain or shortness of breath. No reported nausea or vomiting and diet will be resumed once cleared by GI. Review of systems: Constitutional: No reports of fatigue, fever, or chills Cardiovascular: No reports of chest pain or palpitations Respiratory: No reports of shortness of breath or cough GI: No reports of nausea, no reports of vomiting, reports having bowel movements that are dark with no bright red blood noted : No reports of dysuria or retention Neurovascular: reports of generalized weakness All medications have been reviewed PHYSICAL EXAMINATION: GENERAL: The patient is alert and oriented x4, Well developed, well nourished. Elderly appearing, obese HEENT: Pupils are round and equally reacting to light. EOMI. no scleral icterus. No conjunctival pallor. Normocephalic, atraumatic. No pharyngeal erythema. No thyromegaly. CARDIOVASCULAR: S1 and S2 muffled PULMONARY: diminished breath sounds bilaterally with no wheezing or rhonchi noted. ABDOMEN: soft. Nontender on exam. obese. non-distended, normoactive bowel sounds. No palpable organomegaly. MUSCULOSKELETAL: No joint swelling or deformity. EXTREMITIES: No cyanosis, clubbing, or pedal edema. NEUROLOGICAL: Gross neurological examination did not reveal any focal deficits. Diffuse weakness SKIN: No rashes. Assessment: Dizziness and anemia, rule out acute on chronic GI bleed possibly status post s mall bowel capsule study which is pending History of cecal arteriovenous malformation, started on plasma coagulation, recent colonoscopy with previous cauterization Atrial fibrillation history history of CVA/TIA with residual right-sided weakness obesity with a BMI of 31.1 history of DKA History of glaucoma Bipolar history Former smoker GI prophylaxis DVT prophylaxis Full code Plan: Recommend to continue with current medications and management with GI following. Patient underwent small capsule study which report is being uploaded and pending at this time. GI following and was n.p.o. 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 Hemoglobin is above 8 currently with no active bleeding noted and will follow-up on repeat labs and transfuse if 7 or less. If hemoglobin is stable, may discharge in the next 24 hours. Diet is being advanced per GI and will monitor overnight Encouraged increase activity as tolerated including sitting up in the chair more frequently Neurology has evaluated the patient with history of CVA/TIA maintained on aspirin and Plavix which are currently held at this time. Likely resume only aspirin once cleared by GI surgery Due to multiple complex medical issues, overall prognosis is guarded The impression and plan of care has been dictated by nurse adia Lal as directed. Dr. Marc MD I have performed a history and examination and MDM of this patient, discussed the same with the dictator, and agree with the dictator's assessment and plan as written ,documented as a scribe. Based on total visit time, I have performed more than 50% of the visit. Any additional findings or plans will be noted. Objective - Vital Signs Vital signs: Vital Signs Temp 97.6 F 12/25/24 19:29 Pulse 78 12/25/24 19:29 Resp 16 12/25/24 19:29 BP 115/65 12/25/24 19:29 Pulse Ox 97 12/25/24 19:29 FiO2 Intake & Output 12/25/24 12/25/24 12/26/24 06:59 18:59 06:59 Intake Total 30 1200 Balance 30 1200 Weight 77.4 kg Intake: IV 30 120 0.9 10 Invasive Line 1 20 20 Oral 1080 Other: Voiding Method Toilet Toilet # Voids 4 - Labs CBC & Chem 7: 12/25/24 07:39 12/25/24 07:39 Labs: Abnormal Lab Results - Last 24 Hours (Table) 12/22/24 12/25/24 12/25/24 Range/Units 08:53 07:39 07:39 RBC 2.71 L (4.10-5.20) 10*6/uL Hgb 8.0 L (12.0-15.0) g/dL Hct 26.0 L (37.2-46.3) % MCHC 30.8 L (32.0-37.0) g/dL Chloride 109 H (98-107) mmol/L Carbon Dioxide 21 L (22-30) mmol/L Creatinine 1.13 H (0.52-1.04) mg/dL Glucose 110 H (74-99) mg/dL Crossmatch See Detail
[2024-12-26 03:40] VITALS: RESP 15
[2024-12-26 06:50] LABS: Basophils # (A) 0.05 10*3/uL (0.00-0.10); Basophils % (A) 0.6 %; Eosinophils # (A) 0.33 10*3/uL (0.04-0.35); Eosinophils % (A) 3.8 %; HCT 26.3 % (37.2-46.3); HGB 8.1 g/dL (12.0-15.0); Lymphocytes # (A) 1.22 10*3/uL (0.90-5.00); Lymphocytes % (A) 14.2 %; MCH 29.7 pg (27.0-32.0); MCHC 30.8 g/dL (32.0-37.0); MCV 96.3 fL (80.0-97.0); Monocytes # (A) 0.64 10*3/uL (0.20-1.00); Monocytes % (A) 7.4 %; Neutrophils # (A) 6.34 10*3/uL (1.80-7.70); Neutrophils % (A) 73.7 %; Platelet Count 307 10*3/uL (140-440); RBC 2.73 10*6/uL (4.10-5.20); RDW 16.2 % (11.5-14.5); WBC 8.61 10*3/uL (4.50-10.00)
[2024-12-26 07:31] LABS: African American GFR (CKD) 58 (>60 ml/min/1.73 sqM); Anion Gap 7 mmol/L; Blood Urea Nitrogen 16 mg/dL (7-17); Calcium 9.1 mg/dL (8.4-10.2); Carbon Dioxide 23 mmol/L (22-30); Chloride 109 mmol/L (98-107); Glucose 105 mg/dL (74-99); Magnesium 2.0 mg/dL (1.6-2.3); Non-African American GFR(CKD) 51 (>60 ml/min/1.73 sqM); Potassium 4.3 mmol/L (3.5-5.1); Sodium 139 mmol/L (137-145)
[2024-12-26 08:29] VITALS: BP 108/66; PULSE 87; TEMP 98.2
--- NOTE | 2024-12-26 08:49 | P.PN ---
Subjective Progress Note Date: 12/26/24 Principal diagnosis: Anemia This a pleasant 69-year-old female with a history of iron deficiency anemia who presented to the emergency department today with complaints of weakness and dizziness. She had blood work on as part of her workup with a hemoglobin of 6.8. 1 unit of blood has been ordered and gastroenterology was consulted for anemia. Patient has a history of stroke in May and is on aspirin and Plavix. She did recently have a workup for iron deficiency anemia with a EGD and colonoscopy. EGD with findings of mild antral gastritis and small hiatal hernia. Colonoscopy revealed multiple cecal arteriovenous malformations measuring between 1 cm to 2 cm in size with no active bleeding status post argon plasma coagulation and scattered sigmoid diverticulosis. Patient has been on iron supplementation. She has required blood transfusions in the past. States that her stools have been dark but she assumed that it was secondary to the iron. She denies any bright red blood. She also denies any abdominal pain, nausea or vomiting. 12/23/2024 Patient is seen and examined today as a follow-up. She denies any abdominal pain nausea or vomiting. Denies any blood in her stool. She is awaiting to get her small bowel capsule endoscopy started. Patient states she feels better today she has more energy and denies any dizziness. Today's repeat hemoglobin i s 7.8 up from 6.8 after 1 unit of blood given. 12/24/2024 Patient seen and examined today as a follow-up. States she is feeling better. Hemoglobin stable at 8.0. Underwent small bowel capsule endoscopy yesterday. Capsule study currently uploading. Patient states had dark stool yesterday. No abdominal pain nausea or vomiting. 12/26/2024 Patient seen and examined today as a follow-up. 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 Patient states that she is feeling better. She is not having any blood in her stool. No abdominal pain. Hemoglobin stable at 8.1. Objective - Vital Signs Vital signs: Vital Signs Temp 97.9 F 12/26/24 03:37 Pulse 90 12/26/24 03:37 Resp 15 12/26/24 03:37 BP 98/59 12/26/24 03:37 Pulse Ox 96 12/26/24 03:37 FiO2 Intake & Output 12/25/24 12/26/24 12/26/24 18:59 06:59 18:59 Intake Total 1200 150 Balance 1200 150 Weight 77.6 kg Intake: IV 120 30 0.9 10 Invasive Line 1 20 20 Oral 1080 120 Other: Voiding Method Toilet # Voids 4 - Exam General appearance: The patient is alert, oriented, appears in no acute distress. HET: Head is normocephalic and atraumatic. Conjunctiva pink. Sclera anicteric. Neck: Supple without lymphadenopathy. Abdomen: Soft, nontender, nondistended. Extremities: Normal skin color and turgor. No pedal edema Skin: No rashes, no jaundice Neurological: No focal deficits. Alert and oriented. - Labs CBC & Chem 7: 12/26/24 06:37 12/26/24 06:37 Labs: Abnormal Lab Results - Last 24 Hours (Table) 12/25/24 12/25/24 12/26/24 Range/Units 07:39 07:39 06:37 RBC 2.71 L 2.73 L (4.10-5.20) 10*6/uL Hgb 8.0 L 8.1 L (12.0-15.0) g/dL Hct 26.0 L 26.3 L (37.2-46.3) % MCHC 30.8 L 30.8 L (32.0-37.0) g/dL MPV 9.2 L (9.5-12.2) fL Chloride 109 H (98-107) mmol/L Carbon Dioxide 21 L (22-30) mmol/L Creatinine 1.13 H (0.52-1.04) mg/dL Glucose 110 H (74-99) mg/dL Assessment and Plan (1) Anemia Narrative/Plan: 69-year-old female with a history of iron deficiency anemia which has required blood transfusion in the past came in with symptomatic anemia with a noted hemoglobin is 6.8 who is on aspirin and Plavix secondary to recent stroke within the last year. Had recent workup with EGD colonoscopy with findings of multiple AVMs in the cecum. Patient not having any bright red blood but states that her stool has been dark but she believes secondary to iron however need to consider possible further AVMs consider AVMs in the small bowel and can consider evaluating with a small bowel capsule endoscopy. Current Visit: Yes Status: Acute Code(s): D64.9 - ANEMIA, UNSPECIFIED SNOMED Code(s): 541920309 (2) GI bleed Narrative/Plan: Status post small bowel capsule endoscopy with evidence of bleeding AVM in the duodenum also antral gastritis noted with no active bleeding. Will plan to schedule patient for EGD with push enteroscopy tomorrow. Continue with iron supplementation, transfuse as needed for hemoglobin less than 7. 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 Likely source of bleeding. Current Visit: Yes Status: Acute Code(s): K92.2 - GASTROINTESTINAL HEMORRHAGE, UNSPECIFIED SNOMED Code(s): 41886031 (3) AVM (arteriovenous malformation) of colon Current Visit: Yes Status: Acute Code(s): K55.20 - ANGIODYSPLASIA OF COLON WITHOUT HEMORRHAGE SNOMED Code(s): 833236046 Plan: 1. Continue symptomatic and supportive care 2. Diet as tolerated 3. May resume aspirin and Plavix Thank you for this consultation, patient is cleared from gastroenterology for discharge. We will sign off at this time. Dr. Tiburcio Ross I agree with the dictator's note, documented as a scribe by Alda Hernandez.
[2024-12-26] MEDS: CLOPIDOGREL 75 MG TAB PO SCH (09:37)
[2024-12-26] MEDS: FERROUS SULFATE 325 MG TAB PO SCH (09:37)
[2024-12-26] MEDS: ASPIRIN 81 MG PO SCH (09:38)
--- NOTE | 2024-12-28 14:13 | P.DS ---
Providers Date of admission: 12/22/24 10:39 Expected date of discharge: 12/26/24 Attending physician: Ed Tran Consults: 12/22/24 10:24 Consult Physician Urgent Consulting Provider: Mayela Ross Consult Reason/Comments: anemia Do you want consulting provider notified?: Already Contacted 12/22/24 13:42 Consult Physician Routine Consulting Provider: Kyle Ortega Consult Reason/Comments: recent stroke, current gi bleeding, for follow up Do you want consulting provider notified?: Yes Primary care physician: Armin Pulliam Hospital Course: Final diagnosis Dizziness and anemia, rule out acute on chronic GI bleed possibly status post small bowel capsule study as well as upper endoscopy with no active bleeding noted History of cecal arteriovenous malformation, started on plasma coagulation, recent colonoscopy with previous cauterization Atrial fibrillation history history of CVA/TIA with residual right-sided weakness obesity with a BMI of 31.1 history of DKA History of glaucoma Bipolar history Former smoker GI prophylaxis DVT prophylaxis Full code Discharge disposition Patient is being discharged in a stable condition with guarded prognosis to home. Patient will follow-up with Dr. Pulliam in the outpatient setting upon discharge. Patient is to continue with aspirin and Plavix and outpatient follow-up with GI as scheduled. Total time taken is greater than 35 minutes. Hospital course This is a 69-year-old female who was recently admitted with dizziness and anemia with concerns of GI bleed status post small bowel capsule study as well as upper endoscopy EGD with push with GI following. Patient was continued on aspirin and Plavix due to recent CVA which has been held due to anemia and per GI okay to resume aspirin and Plavix starting tomorrow 12/27/2024 with close outpatient follow-up. Patient has previous history of AVMs status post coagulation. Patient hemoglobin is 8 .1 today with no active bleeding noted tolerating diet and has been cleared by consultations. Patient would like to go home and recommend close outpatient follow-up. Please refer to other consultation notes for further HPI. Currently no reports of chest pain, shortness of breath, or palpitations. Patient is afebrile. No reports of nausea or vomiting and patient is tolerating diet. Patient will be discharged home today. Guarded prognosis Physical exam: Gen: This is a 69-year-old female who is awake, alert and oriented x 3, well- developed, elderly appearing, obese HEENT: Head is atraumatic, normocephalic. Pupils equal, round. Sclerae is anicteric. NECK: Supple. No JVD. No lymphadenopathy. No thyromegaly. LUNGS: Diminished breath sounds bilaterally otherwise clear to auscultation. No wheezes or rhonchi. No intercostal retractions. HEART: S1, S2 are muffled ABDOMEN: Soft. Obese, bowel sounds are present. No masses. No tenderness. EXTREMITIES: No pedal edema. No calf tenderness. NEUROLOGICAL: Patient is awake, alert and oriented x3. Cranial nerves 2 through 12 are grossly intact. Please refer to medication reconciliation sheet for a list of medications. The impression and plan of care has been dictated by Megan Desai, Nurse Practitioner as directed. Dr. Gilbert MD I have performed a history and examination and MDM of this patient, discussed the same with the dictator, and agree with the dictator's assessment and plan as written ,documented as a scribe. Based on total visit time, I have performed more than 50% of the visit. Patient Condition at Discharge: Fair Plan - Discharge Summary New Discharge Prescriptions: New Clopidogrel [Plavix] 75 mg PO DAILY #30 tab Acetaminophen Tab [Tylenol] 650 mg PO Q6HR PRN tab PRN Reason: Mild Pain Or Fever > 100.5 Ferrous Sulfate [Iron (65 MG Elemental)] 325 mg PO BID-W/MEALS #60 tab Continue Atorvastatin [Lipitor] 40 mg PO HS 30 Days #30 tablet buPROPion XL [Wellbutrin XL] 300 mg PO HS Pantoprazole [Protonix] 40 mg PO DAILY Escitalopram [Lexapro] 20 mg PO DAILY QUEtiapine FUMARATE [SEROquel] 300 mg PO HS lisinopriL [Zestril] 20 mg PO DAILY amLODIPine [Norvasc] 5 mg PO DAILY Aspirin 81 mg PO HS Discontinued Clopidogrel [Plavix] 75 mg PO DAILY 20 Days #20 tablet Ferrous Sulfate [Feosol] 325 mg PO DAILY Discharge Medication List Escitalopram [Lexapro] 20 mg PO DAILY 06/10/24 [History] Pantoprazole [Protonix] 40 mg PO DAILY 06/10/24 [History] QUEtiapine FUMARATE [SEROquel] 300 mg PO HS 06/10/24 [History] buPROPion XL [Wellbutrin XL] 300 mg PO HS 06/10/24 [History] Atorvastatin [Lipitor] 40 mg PO HS 30 Days #30 tablet 06/13/24 [Rx] lisinopriL [Zestril] 20 mg PO DAILY 08/20/24 [History] Aspirin 81 mg PO HS 12/22/24 [History] amLODIPine [Norvasc] 5 mg PO DAILY 12/22/24 [History] Acetaminophen Tab [Tylenol] 650 mg PO Q6HR PRN tab 12/26/24 [Rx] Clopidogrel [Plavix] 75 mg PO DAILY #30 tab 12/26/24 [Rx] Ferrous Sulfate [Iron (65 MG Elemental)] 325 mg PO BID-W/MEALS #60 tab 12/26/24 [Rx] Follow up Appointment(s)/Referral(s): Mayela Ross MD [STAFF PHYSICIAN] - 1 Week (please call office to schedule an appointment) Armin Pulliam DO [Primary Care Provider] - 12/31/24 2:15 pm (appointment is with Sam) Ambulatory/Diagnostic Orders: Complete Blood Count w/diff [LAB.AMB] Location: None Selected Patient Instructions/Handouts: Anemia (DC) Activity/Diet/Wound Care/Special Instructions: Activity limited until follow-up Follow-up with GI outpatient Follow-up with primary care provider on discharge Follow-up with neurology outpatient Continue taking medications as prescribed Repeat labs in the next few days to monitor hemoglobin Discharge Disposition: HOME SELF-CARE
== END 2024-12-26 11:30 | disposition home or self-care (01) | DRG 378 ==
LOC: EC 08:34 → 3SCARD 10:38 → OBSVTOIN 10:39 → 3SCARD 11:27
PROVIDERS: ADMIT Hospitalist; ATTEND Hospitalist
PROC: 0DJ07ZZ Inspection of Upper Intestinal Tract, Via Natural or Artificial Opening (ICD-10-PCS; 2024-12-23)
PROC: 0DJD8ZZ Inspection of Lower Intestinal Tract, Via Natural or Artificial Opening Endoscopic (ICD-10-PCS; 2024-12-25)
PROC: 0W3P8ZZ Control Bleeding in Gastrointestinal Tract, Via Natural or Artificial Opening Endoscopic (ICD-10-PCS; principal; 2024-12-25 14:00)
DX: K31.811 Angiodysplasia of stomach and duodenum with bleeding (principal); I69.351 Hemiplegia and hemiparesis following cerebral infarction affecting right dominant side; E11.9 Type 2 diabetes mellitus without complications; F31.9 Bipolar disorder, unspecified; E66.9 Obesity, unspecified; I10 Essential (primary) hypertension; I48.91 Unspecified atrial fibrillation; K28.0 Acute gastrojejunal ulcer with hemorrhage; K44.9 Diaphragmatic hernia without obstruction or gangrene; M19.90 Unspecified osteoarthritis, unspecified site; Z68.31 Body mass index [BMI] 31.0-31.9, adult; Z87.891 Personal history of nicotine dependence; Z79.02 Long term (current) use of antithrombotics/antiplatelets; Z79.899 Other long term (current) drug therapy; Z79.82 Long term (current) use of aspirin; Z88.0 Allergy status to penicillin; Z90.710 Acquired absence of both cervix and uterus
CPT/HCPCS: 36415; 36430; 43270; 70450; 80048; 80053; 81001; 83735; 84484; 85025; 85027; 86850; 86900; 86901; 86920; 91110; 93005; 94760; 96361; 96374; 99291